=== PATIENT | female | born 1950 | race Caucasian/White ===

== ENCOUNTER 2016-07-06 22:57 | Inpatient (IN) ==
--- NOTE | 2016-07-06 23:17 | Emergency Department Note ---
Disposition Clinical Impression: Gastroenteritis, Respiratory difficulty Abdominal pain Qualifiers: Abdominal location: generalized Qualified Code(s): R10.84 - Generalized abdominal pain Pneumonia Qualifiers: Pneumonia type: due to unspecified organism Laterality: right Lung location: lower lobe of lung Qualified Code(s): J18.9 - Pneumonia, unspecified organism Disposition: Admitted As Inpatient Condition: Fair Time of Disposition: 06:06 Abdominal Pain HPI - General Chief Complaint: ED Abdominal Pain Stated Complaint: "n/v/d for past 24, rt flank pain" Time Seen by Provider: 07/06/16 23:14 Source: patient, EMS Mode of arrival: EMS Limitations: no limitations Nursing Notes Reviewed: Yes Vital Signs Reviewed: Yes - History of Present Illness HPI Narrative: She presents to the emergency department with complaints of 24 hours of GI disturbance. With nausea vomiting no diarrhea times the last 24 hours. States she has been unable to keep anything down at this point. While she is brought in by EMS they did give her IV fluids 1 liter and also 4 mg of Zofran and she states that she is feeling better. She has reports no fever. No diarrhea. Pt Subjective Complaint: abdominal pain Onset (ago): day(s) (1) Consistency: constant Location: diffuse Pain Severity: moderate Pain Scale: 6 Quality: cramping Radiation: none Migration to: no migration Improves with: nothing Worsens with: nothing Associated symptoms: Reports: nausea, vomiting - Related Data Home Medications Medication Instructions Recorded Confirmed Atorvastatin Calcium [Lipitor] 20 mg PO DAILY 07/07/16 07/07/16 Lisinopril [Zestril] 20 mg PO DAILY 07/07/16 07/07/16 Pantoprazole Sodium [Protonix] 20 mg PO DAILY 07/07/16 07/07/16 Allergies Allergy/AdvReac Type Severity Reaction Status Date / Time No Known Allergies Allergy Verified 07/06/16 23:04 All systems ED: reviewed and negative except as stated. Constitutional: Denies: fever, chills, weakness, weight change Eyes: Denies: eye pain, eye discharge, vision change ENT ED: Denies: ear pain, throat pain, dental pain, hearing loss, epistaxis, congestion, dysphagia Cardiovascular: Denies: chest pain, palpitations, dyspnea on exertion, edema, syncope Respiratory: Denies: cough, dyspnea, wheezes, hemoptysis, stridor Gastrointestinal: Reports: abdominal pain, nausea, vomiting. Denies: diarrhea, hematemesis, hematochezia Genitourinary: Denies: dysuria, frequency, hematuria, discharge Musculoskeletal: Denies: back pain, neck pain, arthralgia, myalgia Integumentary: Denies: rash, abrasion, lesions Neurological: Denies: headache, weakness, numbness, paresthesias, confusion, abnormal gait, vertigo Abdominal Pain PMH - Past Medical History Medical history: Reports: non-contributory Physical Exam - General Limitations: no limitations General appearance: alert, in no apparent distress - Head Head exam: atraumatic, normocephalic, normal inspection - Eye Eye exam: Present: normal appearance, PERRL, EOMI - ENT ENT exam: normal exam, normal oropharynx, mucous membranes moist - Neck Neck exam: Present: normal inspection, full ROM, trachea midline - Chest Chest inspection: Present: normal inspection, symmetric chest wall rise - Respiratory Respiratory exam: Present: normal lung sounds bilaterally - Cardiovascular Cardiovascular exam: Present: regular rate, normal rhythm, normal heart sounds - Abdominal Exam Abdominal exam: Present: tenderness, diminished bowel sounds. Absent: distention, guarding, rebound Abdominal tenderness: Present: diffuse - Extremities Exam Extremities exam: Present: normal inspection, full ROM. Absent: tenderness, pedal edema - Back Exam Back exam: Present: normal inspection, full ROM. Absent: tenderness - Neurological Exam Neurological exam: Present: alert, oriented X3, CN II-XII intact, reflexes normal - Psychiatric Psychiatric exam: Present: normal affect, normal mood - Skin Skin exam: Present: warm, dry, intact, normal color Course - Reevaluation(s) Reevaluation #1: Patient has been resting quietly throughout the evening, was improving, no abdominal pain, tolerating ice chips without difficulty. However, she suddenly sat up in bed, became shaky, anxious, short of breath. Vital signs, oxygen saturation down to 88% on room air, applied oxygen 3l/min nc. and up to 93%. She is denying chest pain at this time., but remains anxious, short of breath. Will obtain CTA Time: 05:16 Reevaluation #2: Dr. Felton advised of change in patient's condition. Patient remains dyspneic , feels as "if something is wrong, I don't feel right". She is more pale, no diaphoresis at this time, continues to deny chest pain. Remains on monitor, oxygen at 3l/min, n.c Sent to CT. Time: 05:30 Reevaluation #3: report to TAY Ramon he will assume care of patient. Time: 06:18 Vital Signs Temperature 99.5 F 07/06/16 23:00 Pulse Rate 76 07/06/16 23:00 Respiratory Rate 16 07/06/16 23:00 Blood Pressure 116/68 07/06/16 23:00 O2 Sat by Pulse Oximetry 92 L 07/06/16 23:00 Temperature 99.3 F 07/07/16 16:14 Pulse Rate 106 07/07/16 18:32 Respiratory Rate 34 07/07/16 18:32 Blood Pressure 100/67 07/07/16 18:32 O2 Sat by Pulse Oximetry 100 07/07/16 18:32 Oxygen Delivery Oxygen Delivery Non Rebreather Mask Abdominal Pain - Differential Diagnosis Differential Diagnosis: Likely: gastroenteritis - Lab Data Result diagrams: 07/06/16 23:31 07/06/16 23:31 Lab Results 07/06/16 07/06/16 07/07/16 Range/Units 23:31 23:31 04:57 WBC 14.6 H (4.3-11.1) K/mcL RBC 3.70 L (3.82-4.97) M/mcL Hgb 10.8 L (11.5-15.4) g/dL Hct 32.8 L (35.3-44.9) % MCV 88.6 (83.0-100.0) fL MCH 29.2 (28.0-33.3) pg MCHC 32.9 (31.6-35.5) g/dL RDW 14.5 (11.5-14.5) % Plt Count 89 L (140-400) K/mcL MPV 10.9 (9.4-12.4) fL Seg Neutrophils % 72.0 % Band Neutrophils % 18.0 H (0-4) % Lymphocytes % 4.0 % Monocytes % 2.0 % Metamyelocytes % 4.0 H (0) % Neutrophils # 13.1 H (1.6-8.9) K/mcL Lymphocytes # 0.6 (0.6-4.6) K/mcL Monocytes # 0.3 (0.0-1.3) K/mcL Platelet Estimate Decreased L (Normal) Immature Plt Fraction 5.0 (1.1-6.1) % PT (9.4-12.1) Seconds INR Fibrinogen (169-393) mg/dL Sodium 141 (136-145) mEq/L Potassium 3.4 L (3.5-4.5) mEq/L Chloride 113 H (98-109) mEq/L Carbon Dioxide 18 L (19-29) mEq/L BUN 38 H (7-20) mg/dL Creatinine 1.19 H (0.57-1.11) mg/dL Est GFR ( Amer) 55 L (> 60) Est GFR (Non-Af Amer) 45 L (> 60) BUN/Creatinine Ratio 32 H (6-26) Glucose 116 H (70-99) mg/dL Calculated Osmolality 302 H (280-300) Lactic Acid (0.5-2.2) mmol/L Calcium 7.4 L (8.6-10.8) mg/dL Magnesium (1.6-2.6) mg/dL Total Bilirubin 1.7 H (0.2-1.2) mg/dL Direct Bilirubin 0.5 (0.0-0.5) mg/dL Indirect Bilirubin 1.2 (0.0-1.2) mg/dL AST 59 H (5-34) Units/L ALT 82 H (0-55) Units/L Alkaline Phosphatase 168 H (38-126) Units/L Troponin I (0-0.03) ng/mL Serum Total Protein 5.8 L (6.0-8.3) g/dL Albumin 2.6 L (3.5-5.0) g/dL Globulin 3.2 (2.4-3.5) g/dL Albumin/Globulin Ratio 0.8 L (1.1-2.2) Amylase 25 (25-125) Units/L Lipase 13 (8-78) Units/L Urine Color Dark Yellow (Yellow) Urine Clarity Cloudy A (Clear) Urine pH 5.5 (5.0-8.0) pH Units Ur Specific [place] 1.020 (1.010-1.025) Urine Protein 30 H (Neg-Trace) mg/dL Urine Glucose (UA) Normal (Normal) mg/dL Urine Ketones Negative (Negative) mg/dL Urine Blood Large H (Negative) Urine Nitrite Negative (Negative) Urine Bilirubin Negative (Negative) Urine Urobilinogen Normal (Normal) mg/dL Ur Leukocyte Esterase Moderate H (Negative) Urine Microscopic RBC 5-15 H (0-3) per hpf Urine Microscopic WBC 30-50 H (0-3) per hpf Ur Squamous Epith Cells Many H (None-Few) per lpf Urine Bacteria Many H (None-Few) per hpf Hyaline Casts Test Not Performed Ur Culture Indicated? YES A (NO) A. baumannii (TEM-PCR) (Not Detect) Ann-Marie albicans (PCR) (Not Detect) C. glabrata (PCR) (Not Detect) C. krusei (PCR) (Not Detect) C. parapsilosis (PCR) (Not Detect) C. tropicalis (PCR) (Not Detect) Enterobacteriac sp PCR (Not Detect) E. cloacae complex PCR (Not Detect) Enterococcus sp PCR (Not Detect) E. coli (PCR) (Not Detect) H. influenzae DNA (Not Detect) Klebsiella oxytoca PCR (Not Detect) Klebsiella pneumoniae (Not Detect) Listeria (PCR) (Not Detect) N. meningitidis (PCR) (Not Detect) Proteus species (PCR) (Not Detect) Serratia marcescens PCR (Not Detect) Staphylococcus sp PCR (Not Detect) Staph aureus (PCR) (Not Detect) MRS (TEM-PCR) (Not Detect) Streptococcus sp PCR (Not Detect) Group A Strep DNA (Not Detect) Group B Strep (PCR) (Not Detect) Strep pneumoniae (PCR) (Not Detect) P. aeruginosa (TEM-PCR) (Not Detect) VRE (PCR) (Not Detect) KPC (blaKPC) Detect PCR (Not Detect) 07/07/16 07/07/16 07/07/16 Range/Units 06:51 06:51 06:51 WBC (4.3-11.1) K/mcL RBC (3.82-4.97) M/mcL Hgb (11.5-15.4) g/dL Hct (35.3-44.9) % MCV (83.0-100.0) fL MCH (28.0-33.3) pg MCHC (31.6-35.5) g/dL RDW (11.5-14.5) % Plt Count (140-400) K/mcL MPV (9.4-12.4) fL Seg Neutrophils % % Band Neutrophils % (0-4) % Lymphocytes % % Monocytes % % Metamyelocytes % (0) % Neutrophils # (1.6-8.9) K/mcL Lymphocytes # (0.6-4.6) K/mcL Monocytes # (0.0-1.3) K/mcL Platelet Estimate (Normal) Immature Plt Fraction (1.1-6.1) % PT (9.4-12.1) Seconds INR Fibrinogen (169-393) mg/dL Sodium (136-145) mEq/L Potassium (3.5-4.5) mEq/L Chloride (98-109) mEq/L Carbon Dioxide (19-29) mEq/L BUN (7-20) mg/dL Creatinine (0.57-1.11) mg/dL Est GFR ( Amer) (> 60) Est GFR (Non-Af Amer) (> 60) BUN/Creatinine Ratio (6-26) Glucose (70-99) mg/dL Calculated Osmolality (280-300) Lactic Acid 6.1 H* (0.5-2.2) mmol/L Calcium (8.6-10.8) mg/dL Magnesium (1.6-2.6) mg/dL Total Bilirubin (0.2-1.2) mg/dL Direct Bilirubin (0.0-0.5) mg/dL Indirect Bilirubin (0.0-1.2) mg/dL AST (5-34) Units/L ALT (0-55) Units/L Alkaline Phosphatase (38-126) Units/L Troponin I 0.03 (0-0.03) ng/mL Serum Total Protein (6.0-8.3) g/dL Albumin (3.5-5.0) g/dL Globulin (2.4-3.5) g/dL Albumin/Globulin Ratio (1.1-2.2) Amylase (25-125) Units/L Lipase (8-78) Units/L Urine Color (Yellow) Urine Clarity (Clear) Urine pH (5.0-8.0) pH Units Ur Specific [place] (1.010-1.025) Urine Protein (Neg-Trace) mg/dL Urine Glucose (UA) (Normal) mg/dL Urine Ketones (Negative) mg/dL Urine Blood (Negative) Urine Nitrite (Negative) Urine Bilirubin (Negative) Urine Urobilinogen (Normal) mg/dL Ur Leukocyte Esterase (Negative) Urine Microscopic RBC (0-3) per hpf Urine Microscopic WBC (0-3) per hpf Ur Squamous Epith Cells (None-Few) per lpf Urine Bacteria (None-Few) per hpf Hyaline Casts Ur Culture Indicated? (NO) A. baumannii (TEM-PCR) Not Detected (Not Detect) Ann-Marie albicans (PCR) Not Detected (Not Detect) C. glabrata (PCR) Not Detected (Not Detect) C. krusei (PCR) Not Detected (Not Detect) C. parapsilosis (PCR) Not Detected (Not Detect) C. tropicalis (PCR) Not Detected (Not Detect) Enterobacteriac sp PCR DETECTED A (Not Detect) E. cloacae complex PCR Not Detected (Not Detect) Enterococcus sp PCR Not Detected (Not Detect) E. coli (PCR) DETECTED A (Not Detect) H. influenzae DNA Not Detected (Not Detect) Klebsiella oxytoca PCR Not Detected (Not Detect) Klebsiella pneumoniae Not Detected (Not Detect) Listeria (PCR) Not Detected (Not Detect) N. meningitidis (PCR) Not Detected (Not Detect) Proteus species (PCR) Not Detected (Not Detect) Serratia marcescens PCR Not Detected (Not Detect) Staphylococcus sp PCR Not Detected (Not Detect) Staph aureus (PCR) Not Detected (Not Detect) MRS (TEM-PCR) N/A (Not Detect) Streptococcus sp PCR Not Detected (Not Detect) Group A Strep DNA Not Detected (Not Detect) Group B Strep (PCR) Not Detected (Not Detect) Strep pneumoniae (PCR) Not Detected (Not Detect) P. aeruginosa (TEM-PCR) Not Detected (Not Detect) VRE (PCR) N/A (Not Detect) KPC (blaKPC) Detect PCR Not Detected (Not Detect) 07/07/16 07/07/16 Range/Units 09:31 09:31 WBC (4.3-11.1) K/mcL RBC (3.82-4.97) M/mcL Hgb (11.5-15.4) g/dL Hct (35.3-44.9) % MCV (83.0-100.0) fL MCH (28.0-33.3) pg MCHC (31.6-35.5) g/dL RDW (11.5-14.5) % Plt Count (140-400) K/mcL MPV (9.4-12.4) fL Seg Neutrophils % % Band Neutrophils % (0-4) % Lymphocytes % % Monocytes % % Metamyelocytes % (0) % Neutrophils # (1.6-8.9) K/mcL Lymphocytes # (0.6-4.6) K/mcL Monocytes # (0.0-1.3) K/mcL Platelet Estimate (Normal) Immature Plt Fraction (1.1-6.1) % PT 17.4 H (9.4-12.1) Seconds INR 1.6 Fibrinogen 540 H (169-393) mg/dL Sodium (136-145) mEq/L Potassium (3.5-4.5) mEq/L Chloride (98-109) mEq/L Carbon Dioxide (19-29) mEq/L BUN (7-20) mg/dL Creatinine (0.57-1.11) mg/dL Est GFR ( Amer) (> 60) Est GFR (Non-Af Amer) (> 60) BUN/Creatinine Ratio (6-26) Glucose (70-99) mg/dL Calculated Osmolality (280-300) Lactic Acid (0.5-2.2) mmol/L Calcium (8.6-10.8) mg/dL Magnesium 1.4 L (1.6-2.6) mg/dL Total Bilirubin (0.2-1.2) mg/dL Direct Bilirubin (0.0-0.5) mg/dL Indirect Bilirubin (0.0-1.2) mg/dL AST (5-34) Units/L ALT (0-55) Units/L Alkaline Phosphatase (38-126) Units/L Troponin I (0-0.03) ng/mL Serum Total Protein (6.0-8.3) g/dL Albumin (3.5-5.0) g/dL Globulin (2.4-3.5) g/dL Albumin/Globulin Ratio (1.1-2.2) Amylase (25-125) Units/L Lipase (8-78) Units/L Urine Color (Yellow) Urine Clarity (Clear) Urine pH (5.0-8.0) pH Units Ur Specific [place] (1.010-1.025) Urine Protein (Neg-Trace) mg/dL Urine Glucose (UA) (Normal) mg/dL Urine Ketones (Negative) mg/dL Urine Blood (Negative) Urine Nitrite (Negative) Urine Bilirubin (Negative) Urine Urobilinogen (Normal) mg/dL Ur Leukocyte Esterase (Negative) Urine Microscopic RBC (0-3) per hpf Urine Microscopic WBC (0-3) per hpf Ur Squamous Epith Cells (None-Few) per lpf Urine Bacteria (None-Few) per hpf Hyaline Casts Ur Culture Indicated? (NO) A. baumannii (TEM-PCR) (Not Detect) Ann-Marie albicans (PCR) (Not Detect) C. glabrata (PCR) (Not Detect) C. krusei (PCR) (Not Detect) C. parapsilosis (PCR) (Not Detect) C. tropicalis (PCR) (Not Detect) Enterobacteriac sp PCR (Not Detect) E. cloacae complex PCR (Not Detect) Enterococcus sp PCR (Not Detect) E. coli (PCR) (Not Detect) H. influenzae DNA (Not Detect) Klebsiella oxytoca PCR (Not Detect) Klebsiella pneumoniae (Not Detect) Listeria (PCR) (Not Detect) N. meningitidis (PCR) (Not Detect) Proteus species (PCR) (Not Detect) Serratia marcescens PCR (Not Detect) Staphylococcus sp PCR (Not Detect) Staph aureus (PCR) (Not Detect) MRS (TEM-PCR) (Not Detect) Streptococcus sp PCR (Not Detect) Group A Strep DNA (Not Detect) Group B Strep (PCR) (Not Detect) Strep pneumoniae (PCR) (Not Detect) P. aeruginosa (TEM-PCR) (Not Detect) VRE (PCR) (Not Detect) KPC (blaKPC) Detect PCR (Not Detect)
[2016-07-06] MEDS ORDERED: Pantoprazole 40 MG VIAL IVP ONE (23:20)
[2016-07-06] MEDS ORDERED: 0.9 % Sodium Chloride 1,000 ML IVC ONE (23:20)
[2016-07-06 23:46] LABS: Hematocrit 32.8 % (35.3-44.9); Hemoglobin 10.8 g/dL (11.5-15.4); Mean Corpuscular HGB Conc 32.9 g/dL (31.6-35.5); Mean Corpuscular Hemoglobin 29.2 pg (28.0-33.3); Mean Corpuscular Volume 88.6 fL (83.0-100.0); Mean Platelet Volume 10.9 fL (9.4-12.4); Red Cell Distribution Width 14.5 % (11.5-14.5)
[2016-07-06 23:50] LABS: Albumin 2.6 g/dL (3.5-5.0); Albumin/Globulin Ratio 0.8 (1.1-2.2); Bilirubin,Direct 0.5 mg/dL (0.0-0.5); Bilirubin,Indirect 1.2 mg/dL (0.0-1.2); Bilirubin,Total 1.7 mg/dL (0.2-1.2); Calcium 7.4 mg/dL (8.6-10.8); Globulin 3.2 g/dL (2.4-3.5); Total Protein 5.8 g/dL (6.0-8.3)
[2016-07-06 23:51] LABS: Potassium 3.4 mEq/L (3.5-4.5)
[2016-07-07 00:02] LABS: Platelet Count 89 K/mcL (140-400)
[2016-07-07 00:06] LABS: Lymphocytes # 0.6 K/mcL (0.6-4.6); Monocytes # 0.3 K/mcL (0.0-1.3); Neutrophils # 13.1 K/mcL (1.6-8.9); Platelet Estimate Decreased (Normal)
[2016-07-07 05:13] LABS: Bilirubin,Urine Negative (Negative); Blood,Urine Large (Negative); Clarity,Urine Cloudy (Clear); Color,Urine Dark Yellow (Yellow); Glucose,Urine (UA) Normal (Normal); Ketones,Urine Negative (Negative); Leukocyte Esterase,Urine Moderate (Negative); Nitrite,Urine Negative (Negative); PH,Urine 5.5 pH Units (5.0-8.0); Protein,Urine 30 mg/dL (Neg-Trace); Urobilinogen,Urine Normal (Normal)
[2016-07-07 05:15] LABS: Bacteria,Urine Many per hpf (None-Few); Squamous Epithelial Cell,Urine Many per lpf (None-Few); WBC,Urine 30-50 per hpf (0-3)
--- NOTE | 2016-07-07 06:32 | Emergency Department Note ---
START Narrative - START START: I examined this patient and my medical decision-making was reviewed with the TILT TRAY DRIVER/PA/Advanced Practice Nurse/Resident Physician. I agree with the documented findings, disposition and treatment plan as described except to the extent set forth below. ED attending note: Patient seen with nurse practitioner Irina Tavarez. Please see a copy of his note for details of the H&P, evaluation, management and disposition of this patient. We independently had [id number] contact with the patient Briefly: -year-old female comes in for nausea vomiting diarrhea ED workup shows that she was getting some shortness of breath and tachycardia CTA of the chest was performed to exclude [place] has history of blood clot in the past, shows a lower lobe pneumonia. Patient 3 L of fluid. We provided 45 minutes. Service for this patient. Patient accepted for admission by the hospitalist in stable condition.
[2016-07-07] MEDS ORDERED: 0.9 % Sodium Chloride 1,000 ML IVC ONE (06:34)
--- NOTE | 2016-07-07 06:58 | Emergency Department Note ---
Disposition Clinical Impression: Gastroenteritis, Respiratory difficulty Abdominal pain Qualifiers: Abdominal location: generalized Qualified Code(s): R10.84 - Generalized abdominal pain Pneumonia Qualifiers: Pneumonia type: due to unspecified organism Laterality: right Lung location: lower lobe of lung Qualified Code(s): J18.9 - Pneumonia, unspecified organism Disposition: Admitted As Inpatient Condition: Fair Instructions: Gastroenteritis (ED), Community-acquired Pneumonia (ED) Additional Instructions: 1. Clear liquids, progress diet slowly to BLAND foods over the next 2-3 days 2. Use the Zofran for nausea 3. Push fluids. 4. Follow up with PCP in 1-2 days. Prescriptions: Ondansetron HCl [Zofran] 4 mg PO Q6H #20 tablet Referrals: NO,PCP [Non-Partnered Physician] - Forms: ED Satisfaction Letter, Work/School Release Time of Disposition: 06:30 Abdominal Pain HPI - General Chief Complaint: ED Abdominal Pain Stated Complaint: "n/v/d for past 24, rt flank pain" Time Seen by Provider: 07/06/16 23:14 Source: patient, EMS Mode of arrival: EMS - History of Present Illness Pt Subjective Complaint: abdominal pain Location: diffuse Pain Severity: moderate Pain Scale: 0 Quality: cramping Migration to: no migration Improves with: nothing Worsens with: nothing Associated symptoms: Reports: nausea, vomiting - Related Data Previous Rx's Medication Instructions Recorded Ondansetron HCl [Zofran] 4 mg PO Q6H #20 tablet 07/07/16 Allergies Allergy/AdvReac Type Severity Reaction Status Date / Time No Known Allergies Allergy Verified 07/06/16 23:04 Constitutional: Denies: fever, chills, weakness, weight change Eyes: Denies: eye pain, eye discharge, vision change ENT ED: Denies: ear pain, throat pain, dental pain, hearing loss, epistaxis, congestion, dysphagia Cardiovascular: Denies: chest pain, palpitations, dyspnea on exertion, edema, syncope Respiratory: Denies: cough, dyspnea, wheezes, hemoptysis, stridor Gastrointestinal: Reports: abdominal pain, nausea, vomiting. Denies: diarrhea, hematemesis, hematochezia Genitourinary: Denies: dysuria, frequency, hematuria, discharge Musculoskeletal: Denies: back pain, neck pain, arthralgia, myalgia Integumentary: Denies: rash, abrasion, lesions Neurological: Denies: headache, weakness, numbness, paresthesias, confusion, abnormal gait, vertigo Abdominal Pain PMH - Past Medical History Medical history: Reports: non-contributory Female Surgical History: Reports: hysterectomy, orthopedic, other Psychiatric history: Reports: no psych history - Social History Smoking status: Never smoker Alcohol use: Reports: none Drug use: Reports: none Physical Exam - General Limitations: no limitations General appearance: alert, in no apparent distress Course Course Narrative: 0615: I received report from TAY Arevalo due to shift change. I have assumed care of this patient at this time. 66-year-old female presented to the emergency Department for chief complaint of nausea vomiting and diarrhea for the past 24 hours. Patient was dispositioned home, and discharge orders were written by the previous provider, TAY Arevalo. As the nurse entered the room to discharge the patient, the patient became anxious, tachycardic, hypertensive, hypoxic, diaphoretic. Dr. Felton was made aware of these changes. A CTA of the chest was ordered which showed no pulmonary embolus, however did show the possibility of right lower lobe atelectasis versus pneumonia. Patient remained tachycardic, diaphoretic, and with an oxygen saturation of 90-95% on [address] Felton recommended admission to the hospitalist service for further treatment of pneumonia. 0630: I spoke with Dr. Ni of the hospitalist service. Dr. Ni accepts the patient for admission to the hospitalist. A repeat EKG was performed which showed no changes from the previous EKG. We will obtain a lactic acid due to the patient's elevated white blood cell count and presence of pneumonia on CTA. We will obtain blood cultures prior to the initiation of IV antibiotics. At this time we are awaiting a bed assignment for admission to the hospital. The patient was placed on a nonrebreather mask. Vital Signs Temperature 99.5 F 07/06/16 23:00 Pulse Rate 76 07/06/16 23:00 Respiratory Rate 16 07/06/16 23:00 Blood Pressure 116/68 07/06/16 23:00 O2 Sat by Pulse Oximetry 92 L 07/06/16 23:00 Temperature 0 F L 07/07/16 06:52 Pulse Rate 130 07/07/16 06:52 Respiratory Rate 24 07/07/16 06:52 Blood Pressure 175/92 07/07/16 06:52 O2 Sat by Pulse Oximetry 100 07/07/16 06:54 Oxygen Delivery Oxygen Delivery Non Rebreather Mask Abdominal Pain - Lab Data Result diagrams: 07/06/16 23:31 07/06/16 23:31 Lab Results 07/06/16 07/06/16 07/07/16 Range/Units 23:31 23:31 04:57 WBC 14.6 H (4.3-11.1) K/mcL RBC 3.70 L (3.82-4.97) M/mcL Hgb 10.8 L (11.5-15.4) g/dL Hct 32.8 L (35.3-44.9) % MCV 88.6 (83.0-100.0) fL MCH 29.2 (28.0-33.3) pg MCHC 32.9 (31.6-35.5) g/dL RDW 14.5 (11.5-14.5) % Plt Count 89 L (140-400) K/mcL MPV 10.9 (9.4-12.4) fL Seg Neutrophils % 72.0 % Band Neutrophils % 18.0 H (0-4) % Lymphocytes % 4.0 % Monocytes % 2.0 % Metamyelocytes % 4.0 H (0) % Neutrophils # 13.1 H (1.6-8.9) K/mcL Lymphocytes # 0.6 (0.6-4.6) K/mcL Monocytes # 0.3 (0.0-1.3) K/mcL Platelet Estimate Decreased L (Normal) Immature Plt Fraction 5.0 (1.1-6.1) % Sodium 141 (136-145) mEq/L Potassium 3.4 L (3.5-4.5) mEq/L Chloride 113 H (98-109) mEq/L Carbon Dioxide 18 L (19-29) mEq/L BUN 38 H (7-20) mg/dL Creatinine 1.19 H (0.57-1.11) mg/dL Est GFR ( Amer) 55 L (> 60) Est GFR (Non-Af Amer) 45 L (> 60) BUN/Creatinine Ratio 32 H (6-26) Glucose 116 H (70-99) mg/dL Calculated Osmolality 302 H (280-300) Calcium 7.4 L (8.6-10.8) mg/dL Total Bilirubin 1.7 H (0.2-1.2) mg/dL Direct Bilirubin 0.5 (0.0-0.5) mg/dL Indirect Bilirubin 1.2 (0.0-1.2) mg/dL AST 59 H (5-34) Units/L ALT 82 H (0-55) Units/L Alkaline Phosphatase 168 H (38-126) Units/L Serum Total Protein 5.8 L (6.0-8.3) g/dL Albumin 2.6 L (3.5-5.0) g/dL Globulin 3.2 (2.4-3.5) g/dL Albumin/Globulin Ratio 0.8 L (1.1-2.2) Amylase 25 (25-125) Units/L Lipase 13 (8-78) Units/L Urine Color Dark Yellow (Yellow) Urine Clarity Cloudy A (Clear) Urine pH 5.5 (5.0-8.0) pH Units Ur Specific [place] 1.020 (1.010-1.025) Urine Protein 30 H (Neg-Trace) mg/dL Urine Glucose (UA) Normal (Normal) mg/dL Urine Ketones Negative (Negative) mg/dL Urine Blood Large H (Negative) Urine Nitrite Negative (Negative) Urine Bilirubin Negative (Negative) Urine Urobilinogen Normal (Normal) mg/dL Ur Leukocyte Esterase Moderate H (Negative) Urine Microscopic RBC 5-15 H (0-3) per hpf Urine Microscopic WBC 30-50 H (0-3) per hpf Ur Squamous Epith Cells Many H (None-Few) per lpf Urine Bacteria Many H (None-Few) per hpf Hyaline Casts Test Not Performed Ur Culture Indicated? YES A (NO)
[2016-07-07] MEDS ORDERED: Piperacillin/Tazobactam 3.375 GM in D5% in Water (Mini-Bag+) 100 ML IVPB ONE (06:59)
[2016-07-07] MEDS ORDERED: Levofloxacin 500 MG/100 ML 500 MG/100 ML BAG IVPB ONE (06:59)
--- NOTE | 2016-07-07 08:44 | Internal Med History&Physical ---
<Jaci Alcantar - Last Filed: 07/07/16 09:52> Date of Encounter: 07/07/16 Time of Encounter: 08:10 Assessment and Plan (1) Severe sepsis Current visit: Yes Status: Acute - 4/4 SIRS criteria (Fever, tachycardia, tachypnea and leukocytosis with bandemia) with lactic acidosis and MORRIS - Possible source infection include influenza, gastroenteritis, UTI and/or pneumonia. - Blood culture and urine culture pending. - Will check influenza, C. difficile, respiratory infection panel, urine antigens for Strep. pneumonia and Legionella. - Adequate hydration with bolus and maintenance IV NS. - Continue Zosyn and add Flagyl. - Close monitoring including telemetry. (2) Gastroenteritis Current visit: Yes Status: Acute - Likely viral but other ddx include bacterial or other GI disorders. - Will check C. difficile. - Will obtain CT A/P for further evaluation. - Zofran prn nausea. - Continue Zosyn and add Flagyl. (3) UTI (urinary tract infection) Current visit: Yes Status: Acute - UA suggests possible UTI despite patient reports no urinary symptoms. - Urine culture pending. - Continue Zosyn. Qualifiers: Urinary tract infection type: site unspecified Hematuria presence: with hematuria Qualified Code(s): N39.0 - Urinary tract infection, site not specified; R31.9 - Hematuria, unspecified (4) MORRIS (acute kidney injury) Current visit: Yes Status: Acute - SCr 1.19 on initial presentation, increased from baseline ~ 0.8 - Likely secondary to sepsis and dehydration from nausea/vomiting/diarrhea. - IV hydration with 2 more liters of bolus. - Continue to monitor renal function and electrolytes. (5) Lactic acidosis Current visit: Yes Status: Acute - Lactic acid 6.1 on initial presentation. - Likely secondary to sepsis and associated end-organ injury. - Will recheck in 6 hours. (6) Pneumonia Current visit: Yes Status: Suspected - CTA chest found no evidence of PE but also suggests possible right lower lobe pneumonia vs. atelectasis. - Patient may have atypical or viral (e.g. influenza) pneumonia given only shortness of breath but no cough. - Will check respiratory infection panel, urine antigens for Strep. pneumonia and Legionella. - Continue Zosyn. - Continue supplemental oxygen. Qualifiers: Pneumonia type: due to unspecified organism Laterality: right Lung location: lower lobe of lung Qualified Code(s): J18.9 - Pneumonia, unspecified organism (7) Thrombocytopenia Current visit: Yes Status: Acute - Platelet count 116 on initial presentation. - Will check PT/INR and fibrinogen to rule out DIC. (8) Hypokalemia Current visit: Yes Status: Acute - K at 3.4 on initial presentation. - Will check Mg. - Continue to monitor. (9) Breast cyst Current visit: Yes Status: Acute - Cyst or solid nodule at inferior left breast as seen on CTA chest. - Patient is recommended to follow up with her PCP for further work-up/ monitoring. Qualifiers: Laterality: left Qualified Code(s): N60.02 - Solitary cyst of left breast (10) Renal cyst Current visit: Yes Status: Acute - Right renal cyst as seen on CTA chest and reported per patient. (11) DVT prophylaxis Current visit: Yes Status: Acute - SQ heparin. Internal Medicine - H&P: HPI Chief complaint: Nausea/vomiting/diarrhea Admitted From: Home Plans for Post Hospital Care: Home History of present illness: Ms. Zamorano is a 66 year old female with PMH of HTN, HLD, GERD and renal cyst/ tumor. Patient presented to ED with nausea, vomiting, diarrhea starting 24 hours ago. Patient's vomitus is mostly regurgitation of food/drink she had and no blood or bile. The diarrhea is watery and charcoal dark per patient. Patient also has anorexia, subjective fever, chills and shortness of breath. Patient denies cough, chest pain, dysphagia, recent choke, abdominal pain, difficulty urinating, dysuria, hematuria. Patient denies recent sick contact but wonder she may have flu. Patient denies any known heart or lung problem and doesn't use oxygen at home. Patient is DNR-CCA. No known significant medical family history among biological family members. Patient denies recent hospitalization or antibiotic use. Past Med Surg Social Fam HX - Past Medical History Medical history: GERD, hyperlipidemia, hypertension Psychiatric history: no psych history - Past Surgical History Surgical History: hysterectomy, orthopedic, other (Left shoulder) - Social History Smoking Status: Never smoker Smokeless Tobacco Status: No Alcohol use: none Drug use: none Internal Medicine - H&P: Meds Atorvastatin Calcium [Lipitor] 20 mg PO DAILY 07/07/16 [History] Lisinopril [Zestril] 20 mg PO DAILY 07/07/16 [History] Pantoprazole Sodium [Protonix] 20 mg PO DAILY 07/07/16 [History] Allergies No Known Allergies Allergy (Verified 07/06/16 23:04) All Systems PM: A 10-system review of systems was performed and is negative for pertinent findings except as documented above in the HPI. - Constitutional Constitutional: anorexia, chills, fever(s), no weight gain, no weight loss - EENT Eyes: no loss of vision Ears: no decreased hearing Nose, mouth and throat: no dysphagia, no nasal congestion, no nasal discharge - Cardiovascular Cardiovascular ROS IM: no chest pain, no edema, no syncope - Respiratory Respiratory: dyspnea, no cough, no hemoptysis, no excessive phlegm production - Gastrointestinal Gastrointestinal: diarrhea, nausea, vomiting, no abdominal pain, no hematochezia - Genitourinary Genitourinary: no difficulty urinating, no dysuria, no hematuria - Musculoskeletal Musculoskeletal ROS IM: back pain (Chronic right back pain) - Integumentary Integumentary IM: no pruritus, no rash - Hematologic/Lymphatic Hematologic/Lymphatic: no easy bleeding, no easy bruising - Constitutional Vitals: Temp Pulse Resp BP Pulse Ox 0 F L 123 24 141/83 100 07/07/16 06:56 07/07/16 07:19 07/07/16 07:19 07/07/16 07:19 07/07/16 07:19 General appearance: Present: cooperative, mild distress, A&O X 3, answers questions appropriately - Head Head exam: Present: atraumatic, normocephalic - Eye Eye exam: Present: PERRL, conjuntiva pink, sclera anicteric - Neck Neck exam general surgery: Present: supple, trachea midline. Absent: lymphadenopathy - Respiratory Respiratory exam: Present: CTAB. Absent: accessory muscle use, rales, rhonchi, wheezes - Cardiovascular Cardiovascular exam: Present: +S1, +S2, tachycardia. Absent: diastolic murmur, gallop, rubs, systolic murmur - GI/Abdominal GI/Abdominal exam: Present: normal bowel sounds, soft, no peritoneal signs. Absent: distended, tenderness - Extremities Exam Extremities exam: Present: warm, radial pulses palpable and symetrical. Absent : calf tenderness, cyanotic, pedal edema - Neurological Exam Neurological exam: Present: CN II-XII intact, oriented X3, no focal deficits. Absent: pronater drift, facial droop, speech deficit - Skin Skin exam: Present: dry, intact, warm Internal Med - H&P Results - Labs CBC & Chem 7: 07/06/16 23:31 07/06/16 23:31 Labs: Short CBC 07/06/16 Range/Units 23:31 WBC 14.6 H (4.3-11.1) K/mcL Hgb 10.8 L (11.5-15.4) g/dL Hct 32.8 L (35.3-44.9) % Plt Count 89 L (140-400) K/mcL Neutrophils # 13.1 H (1.6-8.9) K/mcL BMP 07/06/16 23:31 Sodium 141 Potassium 3.4 L Chloride 113 H Carbon Dioxide 18 L BUN 38 H Creatinine 1.19 H Glucose 116 H Calcium 7.4 L Cardiac Enzymes 07/07/16 Range/Units 06:51 Troponin I 0.03 (0-0.03) ng/mL Liver Function 07/06/16 Range/Units 23:31 Total Bilirubin 1.7 H (0.2-1.2) mg/dL Direct Bilirubin 0.5 (0.0-0.5) mg/dL AST 59 H (5-34) Units/L ALT 82 H (0-55) Units/L Alkaline Phosphatase 168 H (38-126) Units/L Albumin 2.6 L (3.5-5.0) g/dL Urine 07/07/16 Range/Units 04:57 Urine Color Dark Yellow (Yellow) Urine Clarity Cloudy A (Clear) Urine pH 5.5 (5.0-8.0) pH Units Ur Specific [place] 1.020 (1.010-1.025) Urine Protein 30 H (Neg-Trace) mg/dL Urine Glucose (UA) Normal (Normal) mg/dL - Impressions ITS Impressions Chest CTA 07/07/16 05:16 IMPRESSION: 1. No central pulmonary embolus. Beyond the central level the study is considered nondiagnostic. 2. Right lower lobe atelectasis or pneumonia. 3. There is a large cystic structure in the right upper quadrant, partially imaged. Most likely this is a renal cyst. CT of the abdomen and pelvis could be obtained for further evaluation if clinically warranted. 4. Cyst or solid nodule in the inferior left breast. Correlation with mammography is recommended. D/ / Jorge Luis López MD / Jorge Luis López MD Interpreting Provider: Jorge Luis López MD <Miguel Ribeiro - Last Filed: 07/07/16 10:43> Date of Encounter: 07/07/16 Internal Medicine - H&P: HPI History of present illness: Ms. Zamorano is a 66 year old female All Systems PM: A 10-system review of systems was performed and is negative for pertinent findings except as documented above in the HPI. - Constitutional Vitals: Temp Pulse Resp BP Pulse Ox 0 F L 119 24 139/70 95 07/07/16 06:56 07/07/16 09:20 07/07/16 09:20 07/07/16 09:20 07/07/16 09:20 Internal Med - H&P Results - Labs CBC & Chem 7: 07/06/16 23:31 07/06/16 23:31 - Attending Attestation I have seen and examined this patient independently. I have discussed the case with the anesthesiology medical doctor, Dr. Radha Mcadams. I agree with the data gathering in the HPI, physical examination findings, assessment and plan as documented by the resident. Ms. Zamorano is a very pleasant 66-year-old lady with history of hypertension, hyperlipidemia, GERD. She presented to our emergency department complaining of 2 days of persistent nausea, vomiting and diarrhea. Upon my encounter with the patient in the emergency department she was febrile with a temperature of 103. Initial blood work reveals leukocytosis with bandemia. Mild acute kidney injury as well. Initially, there was a concern for pulmonary embolism, therefore a CT angio of the chest was obtained which was negative for PE. The urinalysis is abnormal, possible UTI. Lactic acid is elevated, however there is no anion gap. At this point, we will continue with aggressive IV fluid therapy, IV antibiotics. We will obtain a CT of the abdomen to assess further. Patient will continue with close monitoring. We will obtain d-dimer, fibrinogen , magnesium levels. Will follow cultures. The plan of care was discussed in detail with the patient and her , they expressed understanding.
[2016-07-07] MEDS ORDERED: Acetaminophen 325 MG TABLET PO PRN (09:19)
[2016-07-07] MEDS ORDERED: Ondansetron 4 MG/2 ML VIAL IVP PRN (09:19)
[2016-07-07] MEDS: MetroNIDAZOLE 500 MG/100 ML 500 MG/100 ML BAG IVPB SCH ×2 (09:35→18:18)
[2016-07-07 09:54] LABS: INR 1.6; Prothrombin Time 17.4 Seconds (9.4-12.1)
[2016-07-07] MEDS ORDERED: 0.9 % Sodium Chloride 1,000 ML IVC SCH (10:30)
[2016-07-07] MEDS: 0.9 % Sodium Chloride 1,000 ML IVC SCH ×2 (10:46→11:47)
[2016-07-07] MEDS ORDERED: Naloxone 0.4 MG/ML INJ IVP PRN (10:53)
[2016-07-07] MEDS: Magnesium Sulfate 2 GM in D5% in Water 100 ML IVPB SCH ×2 (13:12→14:16)
[2016-07-07] MEDS ORDERED: FLU VACC QS2016-17 36MOS UP/PF 0.5 ML SYRINGE IM ONE (13:21)
[2016-07-07] MEDS ORDERED: Furosemide 20 MG/2 ML VIAL IVP ONE ×4 (15:23→17:40)
--- NOTE | 2016-07-07 15:33 | Event Note ---
<KatharineJaci - Last Filed: 07/07/16 15:46> Date of Encounter: 07/07/16 Time of Encounter: 15:15 Physician was notified by nurse about persistent tachypnea and potential need of BiPAP or even intubation. Patient was seen and examined with Dr. Ribeiro. Patient still has significant shortness of breath with O2 sat 97% on non- rebreather. Bibasilar crackles on auscultation of lungs. Will obtain ABG. CXR confirms pulmonary edema. Will give 40 mg IV Lasix x1 and obtain BNP & echocardiogram to evaluate possible underlying cardiac disorder. Will hold IV fluid and put patient on BiPAP for now. Continue close monitoring. Consider breathing treatment and steroid if no improvement after Lasix. <Miguel Ribeiro - Last Filed: 07/07/16 15:53> Date of Encounter: 07/07/16 Agree with above.
[2016-07-07] MEDS: Piperacillin/Tazobactam 3.375 GM in D5% in Water (Mini-Bag+) 100 ML IVPB SCH (15:58)
[2016-07-07] MEDS ORDERED: MetroNIDAZOLE 500 MG/100 ML 500 MG/100 ML BAG IVPB SCH (16:00)
[2016-07-07] MEDS: Ipratropium/Albuterol Neb 3 ML IH PRN ×2 (16:44→22:05)
[2016-07-07 17:08] LABS: Adenovirus Not Detected (Not Detect); Bordetella Pertussis Not Detected (Not Detect); Chlamydophila pneumoniae Not Detected (Not Detect); Coronavirus 229E Not Detected (Not Detect); Coronavirus HKU1 Not Detected (Not Detect); Coronavirus NL63 Not Detected (Not Detect); Coronavirus OC43 Not Detected (Not Detect); Human Metapneumovirus Not Detected (Not Detect); Human Rhinovirus/Enterovirus Not Detected (Not Detect); Influenza A Subtype 2009 H1 Not Detected (Not Detect); Influenza A Untypeable Not Detected (Not Detect); Influenza B Not Detected (Not Detect); Mycoplasma pneumoniae Not Detected (Not Detect); Parainfluenza Virus 1 Not Detected (Not Detect); Parainfluenza Virus 2 Not Detected (Not Detect); Parainfluenza Virus 3 Not Detected (Not Detect); Parainfluenza Virus 4 Not Detected (Not Detect); Respiratory Syncytial Virus Not Detected (Not Detect)
[2016-07-07 17:14] LABS: ABG Base Excess -10.3 mEq/L (-2.0 to 3.0); ABG HCO3 17.2 mEQ/L (21-27); ABG Oxygen Saturation 95 % (95-98); ABG PCO2 43 mmHg (35-45); ABG PH 7.21 pH Units (7.32-7.45); ABG PO2 93 mmHg (85-104); ABG TCO2 18.5 mEq/L (20-26)
[2016-07-07] MEDS: *HR* Heparin 5,000 UNIT/ML VIAL SQ SCH (18:17)
[2016-07-07 19:06] LABS: Escherichia coli by PCR ***DETECTED*** (Not Detect); blaKPC Carbapenem-Resist Gene Not Detected (Not Detect)
[2016-07-07 19:07] LABS: Acinetobacter baumannii by PCR Not Detected (Not Detect); Candida albicans by PCR Not Detected (Not Detect); Candida glabrata by PCR Not Detected (Not Detect); Candida krusei by PCR Not Detected (Not Detect); Candida parapsilosis by PCR Not Detected (Not Detect); Candida tropicalis by PCR Not Detected (Not Detect); Enterococcus by PCR Not Detected (Not Detect); Klebsiella oxytoca by PCR Not Detected (Not Detect); Klebsiella pneumoniae by PCR Not Detected (Not Detect); Pseudomonas aeruginosa by PCR Not Detected (Not Detect); Serratia marcescens by PCR Not Detected (Not Detect); Staphylococcus aureus by PCR Not Detected (Not Detect); Streptococcus agalactiae(B)PCR Not Detected (Not Detect); Streptococcus by PCR Not Detected (Not Detect); Streptococcus pneumoniae PCR Not Detected (Not Detect); Streptococcus pyogenes (A) PCR Not Detected (Not Detect)
[2016-07-08] MEDS: Piperacillin/Tazobactam 3.375 GM in D5% in Water (Mini-Bag+) 100 ML IVPB SCH ×3 (00:31→16:51)
[2016-07-08] MEDS: MetroNIDAZOLE 500 MG/100 ML 500 MG/100 ML BAG IVPB SCH ×2 (03:48→08:54)
[2016-07-08 05:30] LABS: Basophils % 0.2 %; Hemoglobin 9.9 g/dL (11.5-15.4); Immature Granulocytes % 0.6 % (0-4)
[2016-07-08 05:31] LABS: Basophils # 0.1 K/mcL (0.0-0.2); Hematocrit 30.7 % (35.3-44.9); INR 1.3; Lymphocytes # 1.2 K/mcL (0.6-4.6); Lymphocytes % 4.3 %; Mean Corpuscular HGB Conc 32.2 g/dL (31.6-35.5); Mean Corpuscular Hemoglobin 29.6 pg (28.0-33.3); Mean Corpuscular Volume 91.6 fL (83.0-100.0); Monocytes # 0.9 K/mcL (0.0-1.3); Monocytes % 3.3 %; Neutrophils # 26.2 K/mcL (1.6-8.9); Prothrombin Time 14.6 Seconds (9.4-12.1); Red Blood Count 3.35 M/mcL (3.82-4.97); Red Cell Distribution Width 15.1 % (11.5-14.5); Segmented Neutrophils % 91.6 %
[2016-07-08 05:34] LABS: Activated Partial Thrombo Time 30.6 Seconds (26.0-36.0)
[2016-07-08 05:42] LABS: Platelet Count 51 K/mcL (140-400)
[2016-07-08 05:49] LABS: Albumin 2.2 g/dL (3.5-5.0); Albumin/Globulin Ratio 0.6 (1.1-2.2); Bilirubin,Total 2.1 mg/dL (0.2-1.2); Calcium 7.6 mg/dL (8.6-10.8); Globulin 3.5 g/dL (2.4-3.5); Potassium 3.8 mEq/L (3.5-4.5); Total Protein 5.7 g/dL (6.0-8.3)
[2016-07-08] MEDS: *HR* Heparin 5,000 UNIT/ML VIAL SQ SCH ×2 (05:59→16:51)
[2016-07-08 06:14] LABS: Platelet Estimate Decreased (Normal); Toxic Granulation Present (Not Present); Toxic Vacuolation Present (Not Present)
--- NOTE | 2016-07-08 07:14 | ECHO - Doppler Report ---
Echocardiogram Name: Mona Zamorano Date of Study: 07/07/2016 Date: 1950 Ht: 67.0 in Medical Record#: [id number] Age: 66 Wt: 219.0 lb Gender: Female BSA: 2.1 Order #: [id number] Location: [facility] Room #: 2N7 Reading Physician: Schuyler Ramesh MD, [facility] Supervisor Mill: Janice Higuera Ordering Physician: Jaci Alcantar DO Primary Physician: None Indications: Pulmonary edema, Concern for underlying cardiac Impressions: Suboptimal quality study due to clinical status (on BIPAP, supine for exam). Sinus tachycardia. Heart rate was approximately 110 bpm throughout this study. Normal LV systolic function, LVEF 50-55%. Not all myocardial segments were well visualized. Mildly dilated right ventricle with normal systolic function. Mildly dilated left atrium. No significant valvular dysfunction. No evidence of pulmonary hypertension. Left Ventricular Wall Motion: Rest Echo Findings All wall segments showed normal motion. Findings: Study Quality * Suboptimal quality study due to clinical status (on BIPAP, supine for exam). ECG Findings * Sinus tachycardia. Heart rate was approximately 110 bpm throughout this study. Left Ventricle * Normal LV systolic function, LVEF 50-55%. Not all myocardial segments were well visualized. * Normal LV chamber size and wall thickness. * Indeterminate diastolic function due to sinus tachycardia with E/A fusion. Right Ventricle * Mildly dilated right ventricle with normal systolic function. Left Atrium * Mildly dilated left atrium. Right Atrium * Normal right atrial size. Aorta * Normally sized aortic root. Pericardium * There is no pericardial effusion present. IVC * The IVC is not dilated. Aortic Valve * Aortic valve not well visualized. Appears trileaflet. * No aortic stenosis. * No aortic regurgitation. Mitral Valve * Normal mitral valve structure. * No mitral stenosis. * No mitral regurgitation. Tricuspid Valve * Tricuspid valve not well visualized. * No tricuspid stenosis. * Trace tricuspid regurgitation. * No evidence of pulmonary hypertension. Pulmonic Valve * Pulmonic valve not well visualized. * No pulmonic stenosis. * No pulmonic regurgitation. History Hypertension Hypercholesteremia Measurements: BP: 100/ 67 2D Normal Values RVIDd: 3.10 cm IVSd: 1.00 cm 0.6 - 1.0 cm LVIDd: 4.70 cm 3.7 - 5.6 cm LVPWd: 1.00 cm 0.6 - 1.1 cm LVIDs: 3.20 cm 1.5 - 3.6 cm AO: 3.50 cm < 4.0 cm %FS: 31.90 cm >25 % LA volume: 74 Tricuspid Valve TV Regurg Peak Grad: 13.00mmHg TV Regurg Peak El: 1.83m/sec Updated by Schuyelr Ramesh MD, [facility] on 07/08/2016 7:07:34 AM electronically signed on 07/08/2016 7:08:35 AM with status of Final Wall Motion Mcallister: 1=Normal, 2=Hypokinesis, 3=Akinesis, 4=Dyskinesis, 5=Aneurysmal, 6=Hyperkinetic, X=Not Visualized (Blank)=Missing
[2016-07-08] MEDS ORDERED: Lisinopril 20 MG TABLET PO SCH (09:00)
--- NOTE | 2016-07-08 09:32 | Electrocardiograph Report ---
Test Date: 2016-07-07 Pat Name: MAGALIS COLORADO Department: 105 Room: 2N07 Gender: F Glove Cutter: : 1950 Requested By: Dwight Felton Order Number: [id number] Reading MD: Juan Long DO Measurements Intervals [place] Rate: 115 P: 27 IA: 163 QRS: -34 QRSD: 94 T: 64 QT: 311 QTc: 379 Interpretive Statements SINUS TACHYCARDIA MARKED LEFT AXIS DEVIATION [QRS AXIS < -30] LOW QRS VOLTAGE IN PRECORDIAL LEADS [QRS DEFLECTION < 1.0 mV IN CHEST LEADS] PATTERN CONSISTENT WITH PULMONARY DISEASE Electronically Signed On 07-08-16 07:51:20 EST by Juan Long DO
--- NOTE | 2016-07-08 10:56 | Internal Med Progress Note ---
Date of Encounter: 07/08/16 Time of Encounter: 10:52 - Assessment and plan (1) Severe sepsis Current Visit: Yes Status: Acute Assessment and plan: Severe sepsis with tachycardia, leukocytosis, lactic acidosis , MORRIS and thrombocytopenia Source is Pyelonephritis and GNR bacteremia Preliminary Urine and Blood culture with GNR Urine strep and legionella Ag negative Patient lactate on admission 6.1, down to 3.0 PLT count 89 now donw to 51 INR is WNL MORRIS has slightly worsened with Cr now 1.89 from 1.19 Leukocytosis is worsening (however, patient received lasix for diuresis after pulmonary edema) CXR showed pulmonary edema ECHO showed LVEF 50-55% Patient had been started on Zosyn and Flagyl She has not had any previous hospitalization recently , nor is she immunocompromised At this time, recommendation is for treatment with Zosyn at pseudomonal doing of 4.45g q8h, however, patient has MORRIS and Zosyn is currently renally dosed Will d/c flagyl, patient has not had diarrhea in 24 hrs Will continue current management and monitor closely Oxygenation has improved with O2 requirement dropped from 15L per minute to 8L per minute We will escalate antibiotics by adding gentamicin/tobramycin based on clinical worsening and or cultures Encourage liberal fluid intake as tolerated for MORRIS, IVF has been held due to acute respiratory failure from pulmonary edema Patient is severely ill, prognosis is guarded She is high risk due to gram negative septicemia, MORRIS, Lactic acidosis and pulmonary edema She is DNR-CC-A and does not want to be intubated should need arise (2) Gram-negative bacteremia Current Visit: Yes Status: Acute Assessment and plan: As above (3) Pyelonephritis Current Visit: Yes Status: Acute Assessment and plan: Per CT scan: some hydrourter with no obstructing stones seen Will continue current management for now May need to repeat CT scan to rule out perinephric abscess (4) MORRIS (acute kidney injury) Current Visit: Yes Status: Acute Assessment and plan: As in sepsis (5) Acute hypoxemic respiratory failure Current Visit: Yes Status: Acute Assessment and plan: Improving, secondary to pulmonary edema Now on 8L /min O2 from 15L Continue supplemental O2 Incentive spirometry (6) Lactic acidosis Current Visit: Yes Status: Acute Assessment and plan: Improving, LFTs WNL, rpt a.m (7) Pneumonia Current Visit: Yes Status: Suspected Assessment and plan: CXR/Ct with no infiltrates Ruled out Qualifiers: Pneumonia type: due to unspecified organism Laterality: right Lung location: lower lobe of lung Qualified Code(s): J18.9 - Pneumonia, unspecified organism (8) Renal cyst Current Visit: Yes Status: Chronic (9) Thrombocytopenia Current Visit: Yes Status: Acute Assessment and plan: Secondary to Severe sepsis NO current evidence of DIC, INR WNL, Hb is stable However, will check LDH, Fibrinogen and D-dimer (10) Hypertension Current Visit: Yes Status: Chronic Assessment and plan: Hold meds for now. BP is acceptable Qualifiers: Hypertension type: essential hypertension Qualified Code(s): I10 - Essential (primary) hypertension (11) HLD (hyperlipidemia) Current Visit: Yes Status: Chronic Qualifiers: Hyperlipidemia type: unspecified Qualified Code(s): E78.5 - Hyperlipidemia , unspecified (12) GERD (gastroesophageal reflux disease) Current Visit: Yes Status: Chronic Qualifiers: Esophagitis presence: without esophagitis Qualified Code(s): K21.9 - Gastro -esophageal reflux disease without esophagitis - Time Spent With Patient 25 - 35 minutes (Patient severely ill with gram negative septicemia, time spent examining, adjusting and revieweing management) - Subjective Interval history: 66 Y/O F with PMH of HtN and GERD She was admitted 07/07 for management of severe sepsis with lactic acidosis, thrombcytopenia , UTI, MORRIS, and gastroenteritis Hospital stay yesterday was complicated by acute respiratory failure with hypoxia and pulmonary edema. IVF were promptly stopped and patient was placed on BiPAP. She also received IV lasix stat Today, Patient is seen at bedside this morning with spouse She denied any new complaints, complains of feeling weak, shortness of breath has improved She has remained afebrile but is tachycardic - Constitutional Vitals: Temp Pulse Resp BP Pulse Ox 97.9 F 102 35 119/69 92 L 07/08/16 08:15 07/08/16 08:15 07/08/16 08:15 07/08/16 08:15 07/08/16 08:15 Afebrile, tachycardic with HR 102-104 Saturating 93% on 12L by NR RR 18-10 BP WNL General appearance: Present: cooperative, mild distress, A&O X 3, pleasant, answers questions appropriately - Head Head exam: Present: atraumatic - Eye Eye exam: Present: PERRL, conjuntiva pink, sclera anicteric - ENT ENT exam: Present: mucous membranes dry - Neck Neck exam general surgery: Present: normal inspection - Respiratory Additional comments: Shallow breaths, bibasilar rales, no rhonchi. NO wheezing. - Cardiovascular Cardiovascular exam: Present: +S1, +S2, tachycardia - GI/Abdominal GI/Abdominal exam: Present: normal bowel sounds, soft, no peritoneal signs. Absent: tenderness - Additional comments: [place] draining clear urine - Extremities Exam Extremities exam: Absent: pedal edema - Neurological Exam Neurological exam: Present: alert, oriented X3, no focal deficits. Absent: pronater drift, facial droop, speech deficit - Skin Skin exam: Present: dry Internal Medicine: Result - Labs CBC & Chem 7: 07/08/16 05:05 07/08/16 05:05 Labs: Short CBC 07/08/16 Range/Units 05:05 WBC 28.6 H D (4.3-11.1) K/mcL Hgb 9.9 L (11.5-15.4) g/dL Hct 30.7 L (35.3-44.9) % Plt Count 51 L (140-400) K/mcL Neutrophils # 26.2 H (1.6-8.9) K/mcL BMP 07/08/16 05:05 Sodium 139 Potassium 3.8 Chloride 113 H Carbon Dioxide 18 L BUN 47 H Creatinine 1.89 H D Glucose 106 H Calcium 7.6 L Liver Function 07/08/16 Range/Units 05:05 Total Bilirubin 2.1 H (0.2-1.2) mg/dL AST 34 (5-34) Units/L ALT 51 (0-55) Units/L Alkaline Phosphatase 164 H (38-126) Units/L Albumin 2.2 L (3.5-5.0) g/dL - ABG Interpretation ABG results: ABG ABG pH 7.21 pH Units (7.32-7.45) L 07/07/16 15:45 ABG pCO2 43 mmHg (35-45) 07/07/16 15:45 ABG pO2 93 mmHg (85-104) 07/07/16 15:45 ABG O2 Saturation 95 % (95-98) 07/07/16 15:45 PT/INR, D-dimer PT 14.6 Seconds (9.4-12.1) H 07/08/16 05:05 - Impressions Impressions Chest X-Ray 07/07/16 15:16 IMPRESSION: Cardiomegaly. Moderate pulmonary vascular congestion. Atelectasis at left lung base. Small left pleural effusion. D/ / Abdias Cazares MD / Abdias Cazares MD Interpreting Provider: Abdias Cazares MD Consult Discharge Plan - Plan Referrals: Linda Ryees CNP [Primary Care Provider] - 07/12/16 9:00 am ()
[2016-07-08 17:00] LABS: D-Dimer 28668 ng/mLFEU (0-500); Fibrinogen 871 mg/dL (169-393)
[2016-07-09] MEDS: Piperacillin/Tazobactam 3.375 GM in D5% in Water (Mini-Bag+) 100 ML IVPB SCH
[2016-07-09 03:05] LABS: Basophils % 0.2 %; Eosinophils % 0.1 %; Hemoglobin 10.1 g/dL (11.5-15.4); Lymphocytes % 4.7 %; Nucleated Red Blood Cells 0.1 /100 WBC (0); Segmented Neutrophils % 89.7 %
[2016-07-09 03:07] LABS: Basophils # 0.1 K/mcL (0.0-0.2); Hematocrit 30.7 % (35.3-44.9); Lymphocytes # 1.4 K/mcL (0.6-4.6); Mean Corpuscular HGB Conc 32.9 g/dL (31.6-35.5); Mean Corpuscular Hemoglobin 29.5 pg (28.0-33.3); Mean Corpuscular Volume 89.8 fL (83.0-100.0); Monocytes # 1.3 K/mcL (0.0-1.3); Monocytes % 4.3 %; Neutrophils # 26.4 K/mcL (1.6-8.9); Red Blood Count 3.42 M/mcL (3.82-4.97); Red Cell Distribution Width 14.7 % (11.5-14.5)
[2016-07-09 03:09] LABS: INR 1.1; Prothrombin Time 12.1 Seconds (9.4-12.1)
[2016-07-09 03:16] LABS: Platelet Count 58 K/mcL (140-400)
[2016-07-09 03:18] LABS: Alanine Aminotransferase 37 Units/L (0-55); Albumin/Globulin Ratio 0.5 (1.1-2.2); Alkaline Phosphatase 156 Units/L (38-126); Aspartate Amino Transferase 24 Units/L (5-34); BUN/Creatinine Ratio 44 (6-26); Bilirubin,Total 1.4 mg/dL (0.2-1.2); Blood Urea Nitrogen 38 mg/dL (7-20); Calcium 8.2 mg/dL (8.6-10.8); Carbon Dioxide 21 mEq/L (19-29); Chloride 112 mEq/L (98-109); Globulin 3.7 g/dL (2.4-3.5); Glucose 91 mg/dL (70-99); Osmolality,Calculated 299 (280-300); Potassium 3.4 mEq/L (3.5-4.5); Sodium 140 mEq/L (136-145); Total Protein 5.7 g/dL (6.0-8.3); eGFR For African Americans > 60 (> 60); eGFR For Non-African Americans > 60 (> 60)
[2016-07-09 03:41] LABS: Platelet Estimate Decreased (Normal)
[2016-07-09] MEDS: *HR* Heparin 5,000 UNIT/ML VIAL SQ SCH (06:01)
[2016-07-09] MEDS ORDERED: Ipratropium/Albuterol Neb 3 ML IH ONE (07:54)
--- NOTE | 2016-07-09 07:59 | Internal Med Progress Note ---
Date of Encounter: 07/09/16 Time of Encounter: 07:56 - Assessment and plan (1) Severe sepsis Current Visit: Yes Status: Acute Assessment and plan: Severe sepsis with tachycardia, leukocytosis, lactic acidosis , MORRIS and thrombocytopenia Source is Pyelonephritis and E.Coli bacteremia Final sensitivity of urine and blood culture with pansensitive E.COli LActic acidosis has resolved 0.8 from 3.0 PLT count stable at 58, no bleeding , no DIC INR is WNL MORRIS has resolved Cr 0.86 from 1.89 Leukocytosis is worsening (however, patient received lasix for diuresis after pulmonary edema) CXR showed pulmonary edema ECHO showed LVEF 50-55% Flagyl was discontinued 07/08 as patient did not have diarrhea for >24 hours Will increase Zosyn to 4.5g q6h Will continue current management and monitor closely Oxygenation has improved, continue supplemental O2 Encourage liberal fluid intake Patient is severely ill, prognosis is guarded She is high risk due to gram negative septicemia, MORRIS, Lactic acidosis and pulmonary edema She is DNR-CC-A and does not want to be intubated should need arise (2) Gram-negative bacteremia Current Visit: Yes Status: Acute Assessment and plan: As above Repeat blood cultures a.m (3) Pyelonephritis Current Visit: Yes Status: Acute Assessment and plan: Per CT scan: some hydrourter with no obstructing stones seen Will continue current management for now May need to repeat CT scan to rule out perinephric abscess (4) MORRIS (acute kidney injury) Current Visit: Yes Status: Acute Assessment and plan: As in sepsis (5) Acute hypoxemic respiratory failure Current Visit: Yes Status: Acute Assessment and plan: Improving, secondary to pulmonary edema Now on 8L /min O2 from 15L Continue supplemental O2 Given 20mg IV lasix stat this morning as she is wheezing and still has crackles , will monitor chemistry Duoneb stat Continue Incentive spirometry (6) Lactic acidosis Current Visit: Yes Status: Acute Assessment and plan: resolved (7) Pneumonia Current Visit: Yes Status: Suspected Assessment and plan: CXR/Ct with no infiltrates Ruled out Qualifiers: Pneumonia type: due to unspecified organism Laterality: right Lung location: lower lobe of lung Qualified Code(s): J18.9 - Pneumonia, unspecified organism (8) Renal cyst Current Visit: Yes Status: Chronic (9) Thrombocytopenia Current Visit: Yes Status: Acute Assessment and plan: Secondary to Severe sepsis NO current evidence of DIC, INR WNL, Fibrinogen is elevated. D-dimers elevated due to sepsis Hb is stable D/C heparin for DVT prophylaxis SCDs for prophylaxis until platelet count improves (10) Hypertension Current Visit: Yes Status: Chronic Assessment and plan: Hold meds for now. BP is acceptable Qualifiers: Hypertension type: essential hypertension Qualified Code(s): I10 - Essential (primary) hypertension (11) HLD (hyperlipidemia) Current Visit: Yes Status: Chronic Qualifiers: Hyperlipidemia type: unspecified Qualified Code(s): E78.5 - Hyperlipidemia , unspecified (12) GERD (gastroesophageal reflux disease) Current Visit: Yes Status: Chronic Qualifiers: Esophagitis presence: without esophagitis Qualified Code(s): K21.9 - Gastro -esophageal reflux disease without esophagitis - Subjective Interval history: 66 Y/O F with PMH of HtN and GERD She was admitted 07/07 for management of severe sepsis with lactic acidosis secondary to gram negative bacteremia and pylonephritis, thrombocytopenia , MORRIS , and gastroenteritis Hospital stay was complicated by acute respiratory failure with hypoxia and pulmonary edema. Today, Patient is seen at bedside this morning with spouse She was weaned from 15L high flow O2 to 8L at close of day yesterday She denies any new complains and reports some improvement She is on clear liquid diet which will be advanced Lactic acidosis and MORRIS has resolved Potassium is low INR remains WNL Will increase Zosyn to 4.5g q6h - Constitutional Vitals: Temp Pulse Resp BP Pulse Ox 98.1 F 93 20 145/87 97 07/09/16 07:37 07/09/16 07:37 07/09/16 07:37 07/09/16 07:37 07/09/16 07:37 General appearance: Present: cooperative, mild distress, A&O X 3, pleasant, answers questions appropriately - Head Head exam: Present: atraumatic - Eye Eye exam: Present: PERRL, conjuntiva pink, sclera anicteric - ENT ENT exam: Present: mucous membranes moist - Neck Neck exam general surgery: Present: normal inspection - Respiratory Additional comments: Shallow breathing, bilateral expiratory wheezing and bibasilar coarse crackles - Cardiovascular Cardiovascular exam: Present: RRR, +S1, +S2. Absent: diastolic murmur, gallop, rubs, systolic murmur - GI/Abdominal GI/Abdominal exam: Present: normal bowel sounds, soft, no peritoneal signs. Absent: distended, tenderness - Extremities Exam Extremities exam: Present: warm, radial pulses palpable and symetrical. Absent : calf tenderness, cyanotic, pedal edema - Neurological Exam Neurological exam: Present: CN II-XII intact, oriented X3, no focal deficits. Absent: pronater drift, facial droop, speech deficit - Skin Skin exam: Present: dry, intact Internal Medicine: Result - Labs CBC & Chem 7: 07/09/16 02:55 07/09/16 02:55 Labs: Short CBC 07/09/16 Range/Units 02:55 WBC 29.4 H (4.3-11.1) K/mcL Hgb 10.1 L (11.5-15.4) g/dL Hct 30.7 L (35.3-44.9) % Plt Count 58 L (140-400) K/mcL Neutrophils # 26.4 H (1.6-8.9) K/mcL BMP 07/09/16 02:55 Sodium 140 Potassium 3.4 L Chloride 112 H Carbon Dioxide 21 BUN 38 H Creatinine 0.86 D Glucose 91 Calcium 8.2 L Liver Function 07/09/16 Range/Units 02:55 Total Bilirubin 1.4 H (0.2-1.2) mg/dL AST 24 (5-34) Units/L ALT 37 (0-55) Units/L Alkaline Phosphatase 156 H (38-126) Units/L Albumin 2.0 L (3.5-5.0) g/dL - ABG Interpretation ABG results: ABG ABG pH 7.21 pH Units (7.32-7.45) L 07/07/16 15:45 ABG pCO2 43 mmHg (35-45) 07/07/16 15:45 ABG pO2 93 mmHg (85-104) 07/07/16 15:45 ABG O2 Saturation 95 % (95-98) 07/07/16 15:45 PT/INR, D-dimer PT 12.1 Seconds (9.4-12.1) 07/09/16 02:55 D-Dimer [id number] ng/mLFEU (0-500) H 07/08/16 16:30 Consult Discharge Plan - Plan Referrals: Linda Reyes CNP [Primary Care Provider] - 07/12/16 9:00 am ()
[2016-07-09] MEDS: Furosemide 20 MG/2 ML VIAL IVP SCH (08:28)
[2016-07-09] MEDS: Piperacillin/Tazobactam 4.5 GM in D5% in Water (Mini-Bag+) 100 ML IVPB SCH ×3 (08:44→19:40)
[2016-07-10] MEDS: Piperacillin/Tazobactam 4.5 GM in D5% in Water (Mini-Bag+) 100 ML IVPB SCH ×4 (01:54→20:55)
[2016-07-10] MEDS ORDERED: Lisinopril 20 MG TABLET PO SCH (04:30)
[2016-07-10 07:08] LABS: Eosinophils % 0.4 %; Red Cell Distribution Width 14.6 % (11.5-14.5)
[2016-07-10 07:15] LABS: Basophils # 0.1 K/mcL (0.0-0.2); Basophils % 0.3 %; Eosinophils # 0.1 K/mcL (0.0-0.6); Hematocrit 34.7 % (35.3-44.9); Hemoglobin 11.4 g/dL (11.5-15.4); Immature Granulocytes % 1.9 % (0-4); Immature Platelets 10.5 % (1.1-6.1); Lymphocytes # 1.5 K/mcL (0.6-4.6); Lymphocytes % 9.2 %; Mean Corpuscular HGB Conc 32.9 g/dL (31.6-35.5); Mean Corpuscular Hemoglobin 28.9 pg (28.0-33.3); Mean Corpuscular Volume 88.1 fL (83.0-100.0); Mean Platelet Volume 12.3 fL (9.4-12.4); Monocytes # 1.5 K/mcL (0.0-1.3); Monocytes % 9.4 %; Neutrophils # 12.5 K/mcL (1.6-8.9); Red Blood Count 3.94 M/mcL (3.82-4.97); Segmented Neutrophils % 78.8 %
[2016-07-10 07:31] LABS: Alanine Aminotransferase 29 Units/L (0-55); Albumin 2.1 g/dL (3.5-5.0); Albumin/Globulin Ratio 0.5 (1.1-2.2); Alkaline Phosphatase 210 Units/L (38-126); Aspartate Amino Transferase 28 Units/L (5-34); BUN/Creatinine Ratio 42 (6-26); Bilirubin,Total 1.7 mg/dL (0.2-1.2); Blood Urea Nitrogen 33 mg/dL (7-20); Calcium 8.6 mg/dL (8.6-10.8); Carbon Dioxide 22 mEq/L (19-29); Chloride 111 mEq/L (98-109); Globulin 4.6 g/dL (2.4-3.5); Glucose 120 mg/dL (70-99); Osmolality,Calculated 302 (280-300); Sodium 142 mEq/L (136-145); Total Protein 6.7 g/dL (6.0-8.3); eGFR For African Americans > 60 (> 60); eGFR For Non-African Americans > 60 (> 60)
[2016-07-10 07:39] LABS: Platelet Count 77 K/mcL (140-400)
[2016-07-10] MEDS: Furosemide 20 MG/2 ML VIAL IVP SCH (08:58)
[2016-07-10] MEDS: amLODIPine 5 MG TABLET PO SCH (08:58)
[2016-07-10] MEDS ORDERED: Furosemide 20 MG TABLET PO PRN (12:50)
--- NOTE | 2016-07-10 12:50 | Internal Med Progress Note ---
Date of Encounter: 07/10/16 Time of Encounter: 09:10 - Assessment and plan (1) Severe sepsis Current Visit: Yes Status: Acute Assessment and plan: Severe sepsis on admission with tachycardia, leukocytosis, lactic acidosis , MORRIS and thrombocytopenia Source is Pyelonephritis and E.Coli bacteremia Final sensitivity of urine and blood culture with pansensitive E.COli LActic acidosis has resolved PLT improving, no DIC MORRIS has resolved Leukocytosis is improving CXR 06/27 showed pulmonary edema, respiratory status improved with supplemental O2 and incentive spirometry ECHO showed LVEF 50-55% Day 3 On Zosyn, continue same Oxygenation has improved, continue supplemental O2 Encourage liberal fluid intake She is DNR-CC-A and does not want to be intubated should need arise (2) Gram-negative bacteremia Current Visit: Yes Status: Acute Assessment and plan: As above (3) Pyelonephritis Current Visit: Yes Status: Acute Assessment and plan: Per CT scan: some hydrourter with no obstructing stones seen Will continue current management for now, improving (4) MORRIS (acute kidney injury) Current Visit: Yes Status: Resolved Assessment and plan: resolved, As in sepsis (5) Acute hypoxemic respiratory failure Current Visit: Yes Status: Acute Assessment and plan: Improving, secondary to pulmonary edema Now on 2L /min O2 from 15L Continue supplemental O2 Continue lasix po (6) Lactic acidosis Current Visit: Yes Status: Resolved Assessment and plan: resolved (7) Pneumonia Current Visit: Yes Status: Suspected Assessment and plan: CXR/Ct with no infiltrates Ruled out Qualifiers: Pneumonia type: due to unspecified organism Laterality: right Lung location: lower lobe of lung Qualified Code(s): J18.9 - Pneumonia, unspecified organism (8) Renal cyst Current Visit: Yes Status: Chronic (9) Thrombocytopenia Current Visit: Yes Status: Acute Assessment and plan: Secondary to Severe sepsis NO current evidence of DIC, INR WNL, Fibrinogen is elevated. D-dimers elevated due to sepsis improving SCDs for dvt prophylaxis (10) Hypertension Current Visit: Yes Status: Chronic Assessment and plan: Continue amlodipine Add lopressor Qualifiers: Hypertension type: essential hypertension Qualified Code(s): I10 - Essential (primary) hypertension (11) HLD (hyperlipidemia) Current Visit: Yes Status: Chronic Qualifiers: Hyperlipidemia type: unspecified Qualified Code(s): E78.5 - Hyperlipidemia , unspecified (12) GERD (gastroesophageal reflux disease) Current Visit: Yes Status: Chronic Qualifiers: Esophagitis presence: without esophagitis Qualified Code(s): K21.9 - Gastro -esophageal reflux disease without esophagitis - Subjective Interval history: 66 Y/O F with PMH of HtN and GERD She was admitted 07/07 for management of severe sepsis with lactic acidosis secondary to gram negative bacteremia and pylonephritis, thrombocytopenia , MORRIS , and gastroenteritis Hospital stay was complicated by acute respiratory failure with hypoxia and pulmonary edema. MORRIS, Lactic acidosis has resolved. PLT count is improving Leukocytosis is downtrending and kidney function has returned to normal Overnight, blood pressure was elevated and needed IV hydralazine pushes She is seen at bedside with her spouse and RN Maira Patient continues to make clinical improvement Now on 2L per minute supplemental O2 and saturating 92-94% Has very poor oral intake, she does not have dysphasia, she states she has poor appetite Will hold off on Lisinopril due to recent MORRIS and start on amlodipine, will add BB as necessary due to beneficial as well for recent CHF Will continue Zosyn at same dose D/C Urethral catheter today - Constitutional Vitals: Temp Pulse Resp BP Pulse Ox 98.6 F 98 24 171/92 92 L 07/10/16 11:37 07/10/16 11:55 07/10/16 11:37 07/10/16 11:37 07/10/16 11:37 General appearance: Present: cooperative, A&O X 3, pleasant, no acute distress, answers questions appropriately - Head Head exam: Present: atraumatic, normocephalic - Eye Eye exam: Present: PERRL, conjuntiva pink, sclera anicteric Pupils: Present: PERRL - Neck Neck exam general surgery: Present: supple, trachea midline. Absent: lymphadenopathy - Respiratory Respiratory exam: Present: CTAB. Absent: accessory muscle use, rales, rhonchi, wheezes - Cardiovascular Cardiovascular exam: Present: RRR, +S1, +S2. Absent: diastolic murmur, gallop, rubs, systolic murmur - GI/Abdominal GI/Abdominal exam: Present: normal bowel sounds, soft, no peritoneal signs. Absent: distended, tenderness - Extremities Exam Extremities exam: Present: warm, radial pulses palpable and symetrical. Absent : calf tenderness, cyanotic, pedal edema - Neurological Exam Neurological exam: Present: CN II-XII intact, oriented X3, no focal deficits. Absent: pronater drift, facial droop, speech deficit - Skin Skin exam: Present: dry, intact Internal Medicine: Result - Labs CBC & Chem 7: 07/10/16 06:00 07/10/16 06:00 Labs: Short CBC 07/10/16 Range/Units 06:00 WBC 15.9 H (4.3-11.1) K/mcL Hgb 11.4 L (11.5-15.4) g/dL Hct 34.7 L (35.3-44.9) % Plt Count 77 L (140-400) K/mcL Neutrophils # 12.5 H (1.6-8.9) K/mcL BMP 07/10/16 06:00 Sodium 142 Potassium 4.0 Chloride 111 H Carbon Dioxide 22 BUN 33 H Creatinine 0.79 Glucose 120 H Calcium 8.6 Liver Function 07/10/16 Range/Units 06:00 Total Bilirubin 1.7 H (0.2-1.2) mg/dL AST 28 (5-34) Units/L ALT 29 (0-55) Units/L Alkaline Phosphatase 210 H (38-126) Units/L Albumin 2.1 L (3.5-5.0) g/dL - ABG Interpretation ABG results: ABG ABG pH 7.21 pH Units (7.32-7.45) L 07/07/16 15:45 ABG pCO2 43 mmHg (35-45) 07/07/16 15:45 ABG pO2 93 mmHg (85-104) 07/07/16 15:45 ABG O2 Saturation 95 % (95-98) 07/07/16 15:45 PT/INR, D-dimer PT 12.1 Seconds (9.4-12.1) 07/09/16 02:55 D-Dimer 33272 ng/mLFEU (0-500) H 07/08/16 16:30 - VTE Documentation of Mechanical Device: Intermittent pneumatic compression device Consult Discharge Plan - Plan Referrals: Linda Reyes CNP [Primary Care Provider] - 07/12/16 9:00 am ()
[2016-07-11] MEDS: Piperacillin/Tazobactam 4.5 GM in D5% in Water (Mini-Bag+) 100 ML IVPB SCH ×4 (01:01→19:56)
[2016-07-11 05:48] LABS: Red Cell Distribution Width 14.6 % (11.5-14.5)
[2016-07-11 05:50] LABS: Hematocrit 33.5 % (35.3-44.9); Immature Platelets 10.8 % (1.1-6.1); Mean Corpuscular HGB Conc 32.8 g/dL (31.6-35.5); Mean Corpuscular Hemoglobin 28.4 pg (28.0-33.3); Mean Corpuscular Volume 86.3 fL (83.0-100.0); Mean Platelet Volume 12.7 fL (9.4-12.4); Red Blood Count 3.88 M/mcL (3.82-4.97)
[2016-07-11 06:08] LABS: Albumin/Globulin Ratio 0.5 (1.1-2.2); Bilirubin,Total 1.6 mg/dL (0.2-1.2); Calcium 8.2 mg/dL (8.6-10.8); Globulin 3.9 g/dL (2.4-3.5); Potassium 3.1 mEq/L (3.5-4.5); Total Protein 5.9 g/dL (6.0-8.3)
[2016-07-11 06:25] LABS: Platelet Count 79 K/mcL (140-400)
[2016-07-11 06:27] LABS: Lymphocytes # 2.2 K/mcL (0.6-4.6); Monocytes # 0.6 K/mcL (0.0-1.3); Platelet Estimate Decreased (Normal)
[2016-07-11 06:28] LABS: Large Platelets Present (Not Present); Reactive Lymphocytes Present (Not Present)
[2016-07-11] MEDS ORDERED: 0.9 % Sodium Chloride 500 ML IVC ONE (08:09)
[2016-07-11] MEDS: amLODIPine 5 MG TABLET PO SCH (09:03)
--- NOTE | 2016-07-11 15:36 | Internal Med Progress Note ---
Date of Encounter: 07/11/16 Time of Encounter: 10:45 - Assessment and plan (1) Severe sepsis Current Visit: Yes Status: Acute Assessment and plan: Severe sepsis on admission with tachycardia, leukocytosis, lactic acidosis , MORRIS and thrombocytopenia Source is Pyelonephritis and E.Coli bacteremia Final sensitivity of urine and blood culture with pansensitive E.COli Lactic acidosis has resolved PLT improving, no DIC MORRIS has resolved Leukocytosis is improving CXR 06/27 showed pulmonary edema, respiratory status improved with supplemental O2 and incentive spirometry ECHO showed LVEF 50-55% Day 4 On Zosyn, continue same Oxygenation has improved, continue supplemental O2 Encourage liberal fluid intake She is DNR-CC-A and does not want to be intubated should need arise (2) Gram-negative bacteremia Current Visit: Yes Status: Acute Assessment and plan: As above (3) Pyelonephritis Current Visit: Yes Status: Acute Assessment and plan: Per CT scan: some hydrourter with no obstructing stones seen Will continue current management for now, improving (4) MORRIS (acute kidney injury) Current Visit: Yes Status: Resolved Assessment and plan: resolved as at 07/09 Today with slight increase in Cr patient received lisinopril yesterday and alsix Hold lasix gentle bolus Rpt chem a.m (5) Acute hypoxemic respiratory failure Current Visit: Yes Status: Acute Assessment and plan: Improving, secondary to pulmonary edema Now on 2L /min O2 from 15L Continue supplemental O2 Hold lasix for now (6) Lactic acidosis Current Visit: Yes Status: Resolved Assessment and plan: resolved (7) Pneumonia Current Visit: Yes Status: Suspected Assessment and plan: CXR/Ct with no infiltrates Ruled out Qualifiers: Pneumonia type: due to unspecified organism Laterality: right Lung location: lower lobe of lung Qualified Code(s): J18.9 - Pneumonia, unspecified organism (8) Renal cyst Current Visit: Yes Status: Chronic (9) Thrombocytopenia Current Visit: Yes Status: Acute Assessment and plan: Secondary to Severe sepsis NO current evidence of DIC, INR WNL, Fibrinogen is elevated. D-dimers elevated due to sepsis improving SCDs for dvt prophylaxis (10) Hypertension Current Visit: Yes Status: Chronic Assessment and plan: Continue amlodipine Increased lopressor, monitor Qualifiers: Hypertension type: essential hypertension Qualified Code(s): I10 - Essential (primary) hypertension (11) HLD (hyperlipidemia) Current Visit: Yes Status: Chronic Qualifiers: Hyperlipidemia type: unspecified Qualified Code(s): E78.5 - Hyperlipidemia , unspecified (12) GERD (gastroesophageal reflux disease) Current Visit: Yes Status: Chronic Qualifiers: Esophagitis presence: without esophagitis Qualified Code(s): K21.9 - Gastro -esophageal reflux disease without esophagitis (13) Hypokalemia Current Visit: Yes Status: Acute Assessment and plan: Replaced - Subjective Interval history: 66 Y/O F with PMH of HtN and GERD She was admitted 07/07 for management of severe sepsis with lactic acidosis secondary to gram negative bacteremia and pylonephritis, thrombocytopenia , MORRIS , and gastroenteritis Hospital stay was complicated by acute respiratory failure with hypoxia and pulmonary edema. Seen with no new complains Reports significant improvement but still has poor appetite - Constitutional Vitals: Temp Pulse Resp BP Pulse Ox 98.2 F 82 20 138/78 93 L 07/11/16 15:18 07/11/16 15:18 07/11/16 15:18 07/11/16 15:18 07/11/16 15:18 General appearance: Present: cooperative, A&O X 3, pleasant, no acute distress, answers questions appropriately Internal Medicine: Result - Labs CBC & Chem 7: 07/11/16 04:35 07/11/16 04:35 Labs: Short CBC 07/11/16 Range/Units 04:35 WBC 15.9 H (4.3-11.1) K/mcL Hgb 11.0 L (11.5-15.4) g/dL Hct 33.5 L (35.3-44.9) % Plt Count 79 L (140-400) K/mcL Neutrophils # 13.0 H (1.6-8.9) K/mcL BMP 07/11/16 04:35 Sodium 140 Potassium 3.1 L Chloride 109 Carbon Dioxide 22 BUN 34 H Creatinine 1.21 H D Glucose 120 H Calcium 8.2 L Liver Function 07/11/16 Range/Units 04:35 Total Bilirubin 1.6 H (0.2-1.2) mg/dL AST 16 (5-34) Units/L ALT 20 (0-55) Units/L Alkaline Phosphatase 170 H (38-126) Units/L Albumin 2.0 L (3.5-5.0) g/dL - ABG Interpretation ABG results: ABG ABG pH 7.21 pH Units (7.32-7.45) L 07/07/16 15:45 ABG pCO2 43 mmHg (35-45) 07/07/16 15:45 ABG pO2 93 mmHg (85-104) 07/07/16 15:45 ABG O2 Saturation 95 % (95-98) 07/07/16 15:45 PT/INR, D-dimer PT 12.1 Seconds (9.4-12.1) 07/09/16 02:55 D-Dimer [id number] ng/mLFEU (0-500) H 07/08/16 16:30 - VTE Documentation of Mechanical Device: Intermittent pneumatic compression device Consult Discharge Plan - Plan Referrals: Linda Reyes CNP [Primary Care Provider] - 07/12/16 9:00 am ()
[2016-07-12] MEDS: Piperacillin/Tazobactam 4.5 GM in D5% in Water (Mini-Bag+) 100 ML IVPB SCH ×3 (02:43→13:34)
[2016-07-12 06:21] LABS: Hematocrit 33.8 % (35.3-44.9); Hemoglobin 11.1 g/dL (11.5-15.4); Mean Corpuscular HGB Conc 32.8 g/dL (31.6-35.5); Mean Corpuscular Hemoglobin 29.3 pg (28.0-33.3); Mean Corpuscular Volume 89.2 fL (83.0-100.0); Mean Platelet Volume 12.6 fL (9.4-12.4); Monocytes # 1.3 K/mcL (0.0-1.3); Platelet Count 104 K/mcL (140-400); Red Blood Count 3.79 M/mcL (3.82-4.97); Red Cell Distribution Width 14.7 % (11.5-14.5)
[2016-07-12 06:26] LABS: Albumin 2.1 g/dL (3.5-5.0); Albumin/Globulin Ratio 0.5 (1.1-2.2); Bilirubin,Total 1.2 mg/dL (0.2-1.2); Calcium 8.1 mg/dL (8.6-10.8); Potassium 3.6 mEq/L (3.5-4.5); Total Protein 6.1 g/dL (6.0-8.3)
[2016-07-12 07:26] LABS: Lymphocytes # 2.5 K/mcL (0.6-4.6); Neutrophils # 11.1 K/mcL (1.6-8.9); Platelet Estimate Decreased (Normal)
[2016-07-12] MEDS: Multivit/Ca/Min/Fe/FA 1 TAB TABLET PO SCH (09:09)
[2016-07-12] MEDS: amLODIPine 5 MG TABLET PO SCH (09:09)
--- NOTE | 2016-07-12 16:00 | Internal Med Progress Note ---
Date of Encounter: 07/12/16 Time of Encounter: 09:30 - Assessment and plan (1) Severe sepsis Current Visit: Yes Status: Acute Assessment and plan: Severe sepsis on admission with tachycardia, leukocytosis, lactic acidosis , MORRIS and thrombocytopenia Source is Pyelonephritis and E.Coli bacteremia Final sensitivity of urine and blood culture with pansensitive E.COli CXR 06/27 showed pulmonary edema, respiratory status improved with supplemental O2 and incentive spirometry ECHO showed LVEF 50-55% She has received 5 days of Zosyn, patent has improved, will transition to oral Levoquin 750mg daily from 07/13/16 a.m PT/OT review for d/c disposition She is DNR-CC-A and does not want to be intubated should need arise (2) Gram-negative bacteremia Current Visit: Yes Status: Acute Assessment and plan: As above (3) Pyelonephritis Current Visit: Yes Status: Acute Assessment and plan: some hydrourter , preeti cyst , with no obstructing stones seen Will continue current management for now, improving (4) MRORIS (acute kidney injury) Current Visit: Yes Status: Resolved Assessment and plan: resolved as at 07/09 Slight increase n Cr following lasix and lisnopril Now improving, since holding both medications Continue to monitor Encourage liberal fluid intake (5) Acute hypoxemic respiratory failure Current Visit: Yes Status: Acute Assessment and plan: Improved, secondary to pulmonary edema Now on 2L /min O2 from 15L Continue supplemental O2 Hold lasix for now (6) Lactic acidosis Current Visit: Yes Status: Resolved Assessment and plan: resolved (7) Pneumonia Current Visit: Yes Status: Suspected Assessment and plan: CXR/Ct with no infiltrates Ruled out Qualifiers: Pneumonia type: due to unspecified organism Laterality: right Lung location: lower lobe of lung Qualified Code(s): J18.9 - Pneumonia, unspecified organism (8) Renal cyst Current Visit: Yes Status: Chronic (9) Thrombocytopenia Current Visit: Yes Status: Acute Assessment and plan: Secondary to Severe sepsis NO current evidence of DIC, INR WNL, Fibrinogen is elevated. D-dimers elevated due to sepsis improving SCDs for dvt prophylaxis (10) Hypertension Current Visit: Yes Status: Chronic Assessment and plan: Continue amlodipine and loppressor Qualifiers: Hypertension type: essential hypertension Qualified Code(s): I10 - Essential (primary) hypertension (11) HLD (hyperlipidemia) Current Visit: Yes Status: Chronic Qualifiers: Hyperlipidemia type: unspecified Qualified Code(s): E78.5 - Hyperlipidemia , unspecified (12) GERD (gastroesophageal reflux disease) Current Visit: Yes Status: Chronic Qualifiers: Esophagitis presence: without esophagitis Qualified Code(s): K21.9 - Gastro -esophageal reflux disease without esophagitis (13) Hypokalemia Current Visit: Yes Status: Acute Assessment and plan: Replaced - Subjective Interval history: 66 Y/O F with PMH of HtN and GERD She was admitted 07/07 for management of severe sepsis with lactic acidosis secondary to gram negative bacteremia and pylonephritis, thrombocytopenia , MORRIS , and gastroenteritis Hospital stay was complicated by acute respiratory failure with hypoxia and pulmonary edema. Seen with no new complains, reports improvement Awaiting PT review for d/c disposition - Constitutional Vitals: Temp Pulse Resp BP Pulse Ox 99.0 F 88 26 112/61 92 L 07/12/16 15:36 07/12/16 15:47 07/12/16 15:36 07/12/16 15:36 07/12/16 15:36 General appearance: Present: cooperative, A&O X 3, pleasant, no acute distress, answers questions appropriately - Head Head exam: Present: atraumatic, normocephalic - Eye Eye exam: Present: PERRL, conjuntiva pink, sclera anicteric Pupils: Present: PERRL - Neck Neck exam general surgery: Present: supple, trachea midline. Absent: lymphadenopathy - Respiratory Respiratory exam: Present: CTAB. Absent: accessory muscle use, rales, rhonchi, wheezes - Cardiovascular Cardiovascular exam: Present: RRR, +S1, +S2. Absent: diastolic murmur, gallop, rubs, systolic murmur - GI/Abdominal GI/Abdominal exam: Present: normal bowel sounds, soft, no peritoneal signs. Absent: distended, tenderness - Extremities Exam Extremities exam: Present: warm, radial pulses palpable and symetrical. Absent : calf tenderness, cyanotic, pedal edema - Neurological Exam Neurological exam: Present: CN II-XII intact, oriented X3, no focal deficits. Absent: pronater drift, facial droop, speech deficit - Skin Skin exam: Present: dry, intact Internal Medicine: Result - Labs CBC & Chem 7: 07/12/16 05:13 07/12/16 05:13 Labs: Short CBC 07/12/16 Range/Units 05:13 WBC 15.8 H (4.3-11.1) K/mcL Hgb 11.1 L (11.5-15.4) g/dL Hct 33.8 L (35.3-44.9) % Plt Count 104 L (140-400) K/mcL Neutrophils # 11.1 H (1.6-8.9) K/mcL BMP 07/12/16 05:13 Sodium 139 Potassium 3.6 Chloride 109 Carbon Dioxide 21 BUN 27 H Creatinine 1.13 H Glucose 117 H Calcium 8.1 L Liver Function 07/12/16 Range/Units 05:13 Total Bilirubin 1.2 (0.2-1.2) mg/dL AST 28 (5-34) Units/L ALT 23 (0-55) Units/L Alkaline Phosphatase 149 H (38-126) Units/L Albumin 2.1 L (3.5-5.0) g/dL - ABG Interpretation ABG results: ABG ABG pH 7.21 pH Units (7.32-7.45) L 07/07/16 15:45 ABG pCO2 43 mmHg (35-45) 07/07/16 15:45 ABG pO2 93 mmHg (85-104) 07/07/16 15:45 ABG O2 Saturation 95 % (95-98) 07/07/16 15:45 PT/INR, D-dimer PT 12.1 Seconds (9.4-12.1) 07/09/16 02:55 D-Dimer [id number] ng/mLFEU (0-500) H 07/08/16 16:30 - VTE Documentation of Mechanical Device: Intermittent pneumatic compression device Consult Discharge Plan - Plan Referrals: Linda Reyes CNP [Primary Care Provider] - 07/19/16 9:45 am ()
[2016-07-12] MEDS ORDERED: Piperacillin/Tazobactam 3.375 GM in D5% in Water (Mini-Bag+) 100 ML IVPB SCH (20:00)
[2016-07-13] MEDS: Multivit/Ca/Min/Fe/FA 1 TAB TABLET PO SCH (09:00)
[2016-07-13] MEDS: levoFLOXacin 750 MG TABLET PO SCH (09:00)
[2016-07-13] MEDS: amLODIPine 5 MG TABLET PO SCH (09:00)
--- NOTE | 2016-07-13 18:57 | Internal Med Progress Note ---
Date of Encounter: 07/13/16 Time of Encounter: 18:55 - Assessment and plan (1) Abdominal pain Current Visit: Yes Status: Acute Qualifiers: Abdominal location: generalized Qualified Code(s): R10.84 - Generalized abdominal pain (2) Gram-negative bacteremia Current Visit: Yes Status: Acute Assessment and plan: Partial time to show gram-negative bacteremia continue levofloxacin recheck should blood culture (3) UTI (urinary tract infection) Current Visit: Yes Status: Acute Assessment and plan: Culture was positive for Escherichia coli continue levofloxacin Qualifiers: Urinary tract infection type: site unspecified Hematuria presence: with hematuria Qualified Code(s): N39.0 - Urinary tract infection, site not specified; R31.9 - Hematuria, unspecified (4) Atelectasis Current Visit: Yes Status: Acute Assessment and plan: Will add DuoNeb aerosol treatment, counseling: Deep wheezing (5) Volume overload Current Visit: Yes Status: Acute Assessment and plan: Add 1 dose of Lasix check BNP Qualifiers: Hypervolemia type: unspecified Qualified Code(s): E87.70 - Fluid overload, unspecified - Subjective Interval history: Patient is feeling much better, had loose bowel movements last night. No dysuria. Patient denies any fever or chills - Constitutional Vitals: Temp Pulse Resp BP Pulse Ox 98.5 F 89 20 126/73 91 L 07/13/16 15:56 07/13/16 15:56 07/13/16 15:56 07/13/16 15:56 07/13/16 15:56 General appearance: Present: cooperative, A&O X 3, pleasant, no acute distress, answers questions appropriately - Head Head exam: Present: atraumatic, normocephalic - Eye Eye exam: Present: conjuntiva pink, sclera anicteric - Neck Neck exam general surgery: Present: supple, trachea midline. Absent: lymphadenopathy - Respiratory Respiratory exam: Present: decreased breath sounds (Marked diminished breathing sounds bilaterally almost absent breathing sounds on bilateral lung bases). Absent: accessory muscle use, rales, rhonchi, wheezes - Cardiovascular Cardiovascular exam: Present: RRR, +S1, +S2. Absent: diastolic murmur, gallop, rubs, systolic murmur - GI/Abdominal GI/Abdominal exam: Present: normal bowel sounds, soft, no peritoneal signs. Absent: distended, tenderness - Extremities Exam Extremities exam: Present: warm, radial pulses palpable and symetrical. Absent : calf tenderness, cyanotic, pedal edema - Neurological Exam Neurological exam: Present: CN II-XII intact, no focal deficits. Absent: pronater drift, facial droop, speech deficit - Skin Skin exam: Present: dry, intact Internal Medicine: Result - Labs CBC & Chem 7: 07/12/16 05:13 07/12/16 05:13 - ABG Interpretation ABG results: ABG ABG pH 7.21 pH Units (7.32-7.45) L 07/07/16 15:45 ABG pCO2 43 mmHg (35-45) 07/07/16 15:45 ABG pO2 93 mmHg (85-104) 07/07/16 15:45 ABG O2 Saturation 95 % (95-98) 07/07/16 15:45 PT/INR, D-dimer PT 12.1 Seconds (9.4-12.1) 07/09/16 02:55 D-Dimer 93848 ng/mLFEU (0-500) H 07/08/16 16:30 - Impressions Intake & Output 07/10/16 07/11/16 07/12/16 07/13/16 23:59 23:59 23:59 23:59 Intake Total 940 / 940 760 / 760 910 / 910 360 / 360 Output Total 1700 / 1700 Balance -760 / -760 759 / 759 910 / 910 360 / 360 Weight 102 kg 102.5 kg 100.1 kg 100 kg Abnormal lab results WBC 15.8 K/mcL (4.3-11.1) H 07/12/16 05:13 RBC 3.79 M/mcL (3.82-4.97) L 07/12/16 05:13 Hgb 11.1 g/dL (11.5-15.4) L 07/12/16 05:13 Hct 33.8 % (35.3-44.9) L 07/12/16 05:13 RDW 14.7 % (11.5-14.5) H 07/12/16 05:13 Plt Count 104 K/mcL (140-400) L 07/12/16 05:13 MPV 12.6 fL (9.4-12.4) H 07/12/16 05:13 Band Neutrophils % 14.0 % (0-4) H 07/12/16 05:13 Metamyelocytes % 6.0 % (0) H 07/12/16 05:13 Neutrophils # 11.1 K/mcL (1.6-8.9) H 07/12/16 05:13 Nucleated RBCs/100 WBC 0.1 /100 WBC (0) H 07/09/16 02:55 Reactive Lymphocytes Present (Not Present) A 07/11/16 04:35 Toxic Granulation Present (Not Present) A 07/08/16 05:05 Toxic Vacuolation Present (Not Present) A 07/08/16 05:05 Platelet Estimate Decreased (Normal) L 07/12/16 05:13 Large Platelets Present (Not Present) A 07/11/16 04:35 Immature Plt Fraction 10.8 % (1.1-6.1) H 07/11/16 04:35 Fibrinogen 871 mg/dL (169-393) H* D 07/08/16 16:30 D-Dimer 37237 ng/mLFEU (0-500) H 07/08/16 16:30 ABG pH 7.21 pH Units (7.32-7.45) L 07/07/16 15:45 ABG HCO3 17.2 mEQ/L (21-27) L 07/07/16 15:45 ABG Total CO2 18.5 mEq/L (20-26) L 07/07/16 15:45 ABG Base Excess -10.3 mEq/L (-2.0 to 3.0) L 07/07/16 15:45 BUN 27 mg/dL (7-20) H 07/12/16 05:13 Creatinine 1.13 mg/dL (0.57-1.11) H 07/12/16 05:13 Est GFR ( Amer) 58 (> 60) L 07/12/16 05:13 Est GFR (Non-Af Amer) 48 (> 60) L 07/12/16 05:13 Glucose 117 mg/dL (70-99) H 07/12/16 05:13 POC Glucose 134 (58-89) H 07/07/16 16:09 Calcium 8.1 mg/dL (8.6-10.8) L 07/12/16 05:13 Alkaline Phosphatase 149 Units/L (38-126) H 07/12/16 05:13 B-Natriuretic Peptide 742 pg/mL (0-100) H 07/07/16 16:11 Albumin 2.1 g/dL (3.5-5.0) L 07/12/16 05:13 Globulin 4.0 g/dL (2.4-3.5) H 07/12/16 05:13 Albumin/Globulin Ratio 0.5 (1.1-2.2) L 07/12/16 05:13 Urine Clarity Cloudy (Clear) A 07/07/16 04:57 Urine Protein 30 mg/dL (Neg-Trace) H 07/07/16 04:57 Urine Blood Large (Negative) H 07/07/16 04:57 Ur Leukocyte Esterase Moderate (Negative) H 07/07/16 04:57 Urine Microscopic RBC 5-15 per hpf (0-3) H 07/07/16 04:57 Urine Microscopic WBC 30-50 per hpf (0-3) H 07/07/16 04:57 Ur Squamous Epith Cells Many per lpf (None-Few) H 07/07/16 04:57 Urine Bacteria Many per hpf (None-Few) H 07/07/16 04:57 Ur Culture Indicated? YES (NO) A 07/07/16 04:57 Enterobacteriac sp PCR DETECTED (Not Detect) A 07/07/16 06:51 E. coli (PCR) DETECTED (Not Detect) A 07/07/16 06:51 - VTE Documentation of Mechanical Device: Intermittent pneumatic compression device Consult Discharge Plan - Plan Referrals: Linda Reyes CNP [Primary Care Provider] - 07/19/16 9:45 am ()
[2016-07-13] MEDS ORDERED: Furosemide 20 MG/2 ML VIAL IVP ONE (19:04)
[2016-07-13] MEDS ORDERED: Furosemide 20 MG TABLET PO ONE (20:32)
[2016-07-13] MEDS: Ipratropium/Albuterol Neb 3 ML IH PRN (22:41)
[2016-07-14 04:18] LABS: BUN/Creatinine Ratio 26 (6-26); Blood Urea Nitrogen 25 mg/dL (7-20); Calcium 8.3 mg/dL (8.6-10.8); Carbon Dioxide 23 mEq/L (19-29); Chloride 109 mEq/L (98-109); Glucose 101 mg/dL (70-99); Magnesium 2.4 mg/dL (1.6-2.6); Osmolality,Calculated 295 (280-300); Phosphorous 3.9 mg/dL (2.3-4.7); Sodium 140 mEq/L (136-145); eGFR For African Americans > 60 (> 60); eGFR For Non-African Americans 56 (> 60)
[2016-07-14 05:16] LABS: Basophils % 0.2 %; Eosinophils # 0.1 K/mcL (0.0-0.6); Eosinophils % 0.3 %; Hematocrit 29.2 % (35.3-44.9); Hemoglobin 9.4 g/dL (11.5-15.4); Immature Granulocytes % 3.5 % (0-4); Immature Platelets 10.7 % (1.1-6.1); Lymphocytes # 1.5 K/mcL (0.6-4.6); Lymphocytes % 8.7 %; Mean Corpuscular HGB Conc 32.2 g/dL (31.6-35.5); Mean Corpuscular Hemoglobin 28.8 pg (28.0-33.3); Mean Corpuscular Volume 89.6 fL (83.0-100.0); Mean Platelet Volume 11.9 fL (9.4-12.4); Monocytes % 5.6 %; Neutrophils # 14.5 K/mcL (1.6-8.9); Red Blood Count 3.26 M/mcL (3.82-4.97); Red Cell Distribution Width 14.7 % (11.5-14.5); Segmented Neutrophils % 81.7 %
[2016-07-14 05:23] LABS: Platelet Count 207 K/mcL (140-400)
[2016-07-14 05:49] LABS: Platelet Estimate Normal (Normal)
[2016-07-14] MEDS: levoFLOXacin 750 MG TABLET PO SCH (08:03)
[2016-07-14] MEDS: amLODIPine 5 MG TABLET PO SCH (08:03)
[2016-07-14] MEDS: Multivit/Ca/Min/Fe/FA 1 TAB TABLET PO SCH (08:04)
[2016-07-14 11:15] VITALS: BP 116/69
--- NOTE | 2016-07-14 14:55 | Discharge Summary ---
Date of Encounter: 07/15/16 Time of Encounter: 14:51 - Discharge Diagnosis (1) Abdominal pain Priority: Secondary Status: Acute Qualifiers: Abdominal location: generalized Qualified Code(s): R10.84 - Generalized abdominal pain (2) Gram-negative bacteremia Priority: Primary Status: Acute (3) UTI (urinary tract infection) Priority: Primary Status: Acute Qualifiers: Urinary tract infection type: site unspecified Hematuria presence: with hematuria Qualified Code(s): N39.0 - Urinary tract infection, site not specified; R31.9 - Hematuria, unspecified (4) Atelectasis Priority: Secondary Status: Acute (5) Volume overload Priority: Secondary Status: Acute Qualifiers: Hypervolemia type: unspecified Qualified Code(s): E87.70 - Fluid overload, unspecified (6) Sepsis Priority: Primary Status: Acute Qualifiers: Sepsis type: Escherichia coli Qualified Code(s): A41.51 - Sepsis due to Escherichia coli [E. coli] - Discharge Medications Prescriptions: Acetaminophen [Tylenol] 650 mg PO Q6HR PRN #60 tablet PRN Reason: Mild Pain (1-3) Amlodipine [Norvasc] 10 mg PO DAILY #30 tablet Cyanocobalamin (B-12) [Vitamin B12] 1,000 mcg PO DAILY #90 tablet Ergocalciferol (VITAMIN D2) [Drisdol (50,000 Unit)] 50,000 unit PO QWEEK #15 capsule Ipratropium/Albuterol Neb [Duoneb] 3 ml IH TID #90 inhsol Lactobacillus [Culturelle] 1 each PO BID #60 cap.sprink Levofloxacin 750 mg PO DAILY #11 tablet Metoprolol [Lopressor] 50 mg PO BID #60 tablet Thiamine HCl 250 mg PO DAILY #90 tablet Home Medications: Atorvastatin Calcium [Lipitor] 20 mg PO DAILY 07/07/16 [History] Lisinopril [Zestril] 20 mg PO DAILY 07/07/16 [History] Pantoprazole Sodium [Protonix] 20 mg PO DAILY 07/07/16 [History] Acetaminophen [Tylenol] 650 mg PO Q6HR PRN #60 tablet 07/14/16 [Rx] Amlodipine [Norvasc] 10 mg PO DAILY #30 tablet 07/14/16 [Rx] Cyanocobalamin (B-12) [Vitamin B12] 1,000 mcg PO DAILY #90 tablet 07/14/16 [Rx] Ergocalciferol (VITAMIN D2) [Drisdol (50,000 Unit)] 50,000 unit PO QWEEK #15 capsule 07/14/16 [Rx] Ipratropium/Albuterol Neb [Duoneb] 3 ml IH TID #90 inhsol 07/14/16 [Rx] Lactobacillus [Culturelle] 1 each PO BID #60 cap.sprink 07/14/16 [Rx] Levofloxacin 750 mg PO DAILY #11 tablet 07/14/16 [Rx] Metoprolol [Lopressor] 50 mg PO BID #60 tablet 07/14/16 [Rx] Thiamine HCl 250 mg PO DAILY #90 tablet 07/14/16 [Rx] Allergies/Adverse Reactions: Allergies No Known Allergies Allergy (Verified 07/06/16 23:04) Procedures/tests Complete & Pending: Intake & Output 07/11/16 07/12/16 07/13/16 07/14/16 23:59 23:59 23:59 23:59 Intake Total 760 / 760 910 / 910 360 / 360 480 / 480 Output Total 0 / 0 Balance 759 / 759 910 / 910 360 / 360 480 / 480 Weight 102.5 kg 100.1 kg 100 kg 96.162 kg Date of admission: 07/07/16 11:13 Primary care physician: Linda Reyes CNP Consults: 07/13/16 14:04 Consult to Medical Anthropology Director [CONS] Routine Reason for SW Consult: possible rehab after D/C 07/10/16 16:54 Consult to Occupational Therapy [CONS] Routine Comment: Evaluate, develop and implement POC Consult to Physical Therapy [CONS] Routine Comment: Evaluate, develop and implement POC - Patient Status Disposition: Transfer SNF Condition: Fair Overall status at discharge: patient is progressing back to baseline - Discharge Instructions Follow Up With: Linda Reyes CNP [Primary Care Provider] - 07/19/16 9:45 am () - Diet and Activity Activity: ambulate only with your walker Diet: low fat, low cholesterol, low salt diet Hospital course: Ms. Zamorano is a 66 year old female with PMH of HtN and GERD .She was admitted 07/07 for management of severe sepsis with lactic acidosis secondary to gram negative bacteremia and pylonephritis, thrombocytopenia , MORRIS, and gastroenteritis . Patient received empiric antibiotic and aggressive hydration for her sepsis and acute kidney injury . Patient developed hypoxemia secondary to pneumonia and pulmonary edema secondary to volume overload. Patient was started on gentle diuretic. Cardiac echo showed ejection fraction was 55% Blood cultures 2 show Escherichia coli as well as urine culture was positive for Escherichia coli, culture with a few antibiotic was tapered down to Levaquin. Continue to monitor patient during hospitalization ,Her condition has been getting better. Patient continued to have generalized weakness. 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 Physical therapy and occupational therapy was following the patient along with hospitalist team. Recommendation for rehabilitation. The patient was accepted for rehabilitation. Patient discharged to rehabilitation in stable condition. Counseling patient about deep breathing. Counseling about nutrition. Plan discussed with patient and family at bedside - Time Spent with Patient Total time spent providing and/or coordinating discharge services: - Constitutional Vitals: Temp Pulse Resp BP Pulse Ox 97.8 F 73 16 116/69 94 L 07/14/16 11:10 07/14/16 11:10 07/14/16 11:10 07/14/16 11:10 07/14/16 11:10 General appearance: Present: cooperative, A&O X 3, pleasant, no acute distress, answers questions appropriately - VTE Documentation of Mechanical Device: Intermittent pneumatic compression device
--- NOTE | 2016-07-14 15:13 | Physician Discharge Referral ---
ExtendedCare Referral Info Institutional Level of Care: Skilled - Diagnosis (1) Abdominal pain Priority: Secondary Status: Acute (2) Gram-negative bacteremia Priority: Primary Status: Acute (3) UTI (urinary tract infection) Priority: Primary Status: Acute (4) Atelectasis Priority: Secondary Status: Acute (5) Volume overload Priority: Secondary Status: Acute - Transfer Medications Prescriptions: Acetaminophen [Tylenol] 650 mg PO Q6HR PRN #60 tablet PRN Reason: Mild Pain (1-3) Amlodipine [Norvasc] 10 mg PO DAILY #30 tablet Cyanocobalamin (B-12) [Vitamin B12] 1,000 mcg PO DAILY #90 tablet Ergocalciferol (VITAMIN D2) [Drisdol (50,000 Unit)] 50,000 unit PO QWEEK #15 capsule Ipratropium/Albuterol Neb [Duoneb] 3 ml IH TID #90 inhsol Lactobacillus [Culturelle] 1 each PO BID #60 cap.sprink Levofloxacin 750 mg PO DAILY #11 tablet Metoprolol [Lopressor] 50 mg PO BID #60 tablet Thiamine HCl 250 mg PO DAILY #90 tablet Home Medications: Atorvastatin Calcium [Lipitor] 20 mg PO DAILY 07/07/16 [History] Lisinopril [Zestril] 20 mg PO DAILY 07/07/16 [History] Pantoprazole Sodium [Protonix] 20 mg PO DAILY 07/07/16 [History] Acetaminophen [Tylenol] 650 mg PO Q6HR PRN #60 tablet 07/14/16 [Rx] Amlodipine [Norvasc] 10 mg PO DAILY #30 tablet 07/14/16 [Rx] Cyanocobalamin (B-12) [Vitamin B12] 1,000 mcg PO DAILY #90 tablet 07/14/16 [Rx] Ergocalciferol (VITAMIN D2) [Drisdol (50,000 Unit)] 50,000 unit PO QWEEK #15 capsule 07/14/16 [Rx] Ipratropium/Albuterol Neb [Duoneb] 3 ml IH TID #90 inhsol 07/14/16 [Rx] Lactobacillus [Culturelle] 1 each PO BID #60 cap.sprink 07/14/16 [Rx] Levofloxacin 750 mg PO DAILY #11 tablet 07/14/16 [Rx] Metoprolol [Lopressor] 50 mg PO BID #60 tablet 07/14/16 [Rx] Thiamine HCl 250 mg PO DAILY #90 tablet 07/14/16 [Rx] Allergies/Adverse Reactions: Allergies No Known Allergies Allergy (Verified 07/06/16 23:04) - Respiratory Orders Smoking Cessation: Smoking cessation has been advised. For more information, call the [place] Tobacco Quit Line at 0-407-BRBV-NOW. - Ancillary Orders May use pressure relief devices daily prn - History and Physical History/Physical reviewed & approved w/add comments: yes CERTIFICATION: I certify that the transfer of the above named patient to an Extended Care Facility is necessary for the continuing treatment of the diagnosis listed. The above information is true and accurate reflection of patient's current condition. Confidential - Redisclosure prohibited without a patient's written consent.
== END 2016-07-14 18:25 | DRG 871 ==
LOC: EMEROO 22:57 → 2NNU 22:57 → 2ANU 07-13 18:46
PROVIDERS: ADMIT Internal Medicine; ATTEND Internal Medicine

== ENCOUNTER 2017-06-28 13:53 | Inpatient (IN) ==
--- NOTE | 2017-06-28 14:17 | Emergency Department Note ---
Disposition Clinical Impression: Elevated troponin, MORRIS (acute kidney injury) Vomiting Qualifiers: Vomiting type: unspecified Vomiting Intractability: unspecified Nausea presence : with nausea Qualified Code(s): R11.2 - Nausea with vomiting, unspecified Disposition: Admitted As Inpatient Condition: Fair Referrals: Linda Reyes CNP [Primary Care Provider] - Forms: ED Satisfaction Letter Time of Disposition: 16:19 Nausea/Vomiting/Diarrhea HPI - General Chief complaint: ED Nausea/Vomiting/Diarrhea Stated complaint: nausea/vomiting Time Seen by Provider: 06/28/17 13:59 Source: EMS Mode of arrival: ambulatory Limitations: no limitations Nursing Notes Reviewed: Yes Vital Signs Reviewed: Yes - History of Present Illness HPI Narrative: 67-year-old female with history of hypertension, hyperlipidemia presents for evaluation of nausea vomiting and weakness in the past 24 hours. Symptom onset started with nausea vomiting last night around 1800. Patient denies any abdominal pain. Patient states that she has had decreased appetite since then. She has been able tolerate some liquids. Patient denies any chest pain. Patient denies any short of breath. No cough. Patient states that she feels generally weak. No history of any recent admissions. Patient does have a history of hospital admissions for pneumonia. Denies a history of heart disease. Patient denies any diarrhea or constipation. - Related Data Home Medications Medication Instructions Recorded Confirmed Atorvastatin Calcium [Lipitor] 20 mg PO DAILY 07/07/16 06/28/17 Lisinopril [Zestril] 20 mg PO DAILY 07/07/16 06/28/17 Cholecalciferol (D-3) [Vitamin D] 2,000 unit PO DAILY 08/31/16 06/28/17 Ranitidine HCl [Heartburn Relief] 150 mg PO DAILY 06/28/17 06/28/17 Previous Rx's Medication Instructions Recorded Cyanocobalamin (B-12) [Vitamin B12] 1,000 mcg PO DAILY #90 tablet 07/14/16 Allergies Allergy/AdvReac Type Severity Reaction Status Date / Time No Known Allergies Allergy Verified 08/31/16 10:57 All systems ED: reviewed and negative except as stated. Constitutional: Reports: as per HPI. Denies: fever Eyes: Reports: as per HPI ENT ED: Reports: as per HPI Cardiovascular: Reports: as per HPI. Denies: chest pain Respiratory: Reports: as per HPI. Denies: cough, dyspnea Gastrointestinal: Reports: as per HPI, nausea, vomiting. Denies: abdominal pain Genitourinary: Reports: as per HPI Musculoskeletal: Reports: as per HPI Integumentary: Reports: as per HPI Neurological: Reports: as per HPI, weakness Psychiatric: Reports: as per HPI Endocrine: Reports: as per HPI Hematological/Lymphatic: Reports: as per HPI Allergic/Immunologic: Reports: as per HPI Past Medical History - Past Medical History Medical history: Reports: hypertension Surgical history: Reports: hysterectomy, orthopedic, other Psychiatric history: Reports: no psych history - Social History Smoking Status: Never smoker Smokeless Tobacco Status: No Alcohol use: Reports: none Drug use: Reports: none Physical Exam - General Limitations: no limitations General appearance: alert, in no apparent distress - Head Head exam: atraumatic, normocephalic, normal inspection - Eye Eye exam: Present: normal appearance, PERRL, EOMI. Absent: scleral icterus - ENT ENT exam: normal exam, mucous membranes dry - Neck Neck exam: Present: normal inspection - Respiratory Respiratory exam: Present: other (Diminished bibasilar). Absent: respiratory distress, accessory muscle use - Cardiovascular Cardiovascular exam: Present: regular rate, tachycardia - Abdominal Exam Abdominal exam: Present: soft, Non-Tender. Absent: tenderness, guarding, rebound - Extremities Exam Extremities exam: Present: normal inspection. Absent: pedal edema - Neurological Exam Neurological exam: Present: alert, oriented X3, CN II-XII intact - Skin Skin exam: Present: warm, dry, intact, normal color Course Course Narrative: Patient seen and examined upon arrival. Patient is requiring 2 L nasal cannula. Patient is borderline tachycardic. Patient will get electrolyte evaluation as well as cardiopulmonary screening with chest x-ray, EKG and troponin. Concerns of infectious versus cardiopulmonary etiology. - Reevaluation(s) Reevaluation #1: Patient's resting comfortably. Patient's troponin did come back elevated. Patient was given aspirin. Patient is not complaining of any chest pain. Time: 15:24 Reevaluation #2: Patient does present with signs of shock WITH elevated troponin and MORRIS. Patient does have MORRIS likely prerenal. Patient is fluid responsive. Patient was started on antibiotics broad-spectrum. There is no specific source. Patient will get a scan of her chest abdomen pelvis. Time: 16:06 Reevaluation #3: Patient's heart rate and blood pressure responding to fluids. Patient had a bedside ultrasound of the gallbladder which does show a cholelithiasis. Patient will get imaging of her chest abdomen pelvis. Time: 16:19 Vital Signs Temperature 99.1 F 06/28/17 13:56 Pulse Rate 104 06/28/17 13:56 Respiratory Rate 20 06/28/17 13:56 Blood Pressure 103/65 06/28/17 13:56 O2 Sat by Pulse Oximetry 88 06/28/17 13:56 Temperature 99.1 F 06/28/17 13:56 Pulse Rate 104 06/28/17 13:56 Respiratory Rate 20 06/28/17 13:56 Blood Pressure 103/65 06/28/17 13:56 O2 Sat by Pulse Oximetry 88 06/28/17 13:56 Oxygen Delivery Oxygen Delivery Room Air Nausea/Vomiting/Diarrhea - Medical Records Medical records reviewed: Yes I reviewed the patient's medical records. - Lab Data Result diagrams: 06/28/17 14:30 06/28/17 14:30 Lab Results 06/28/17 06/28/17 06/28/17 Range/Units 14:30 14:30 14:30 WBC 28.5 H (4.3-11.1) K/mcL RBC 4.10 (3.82-4.97) M/mcL Hgb 12.0 (11.5-15.4) g/dL Hct 36.0 (35.3-44.9) % MCV 87.8 (83.0-100.0) fL MCH 29.3 (28.0-33.3) pg MCHC 33.3 (31.6-35.5) g/dL RDW 14.2 (11.5-14.5) % Plt Count 115 L (140-400) K/mcL MPV 10.8 (9.4-12.4) fL Seg Neutrophils % 50.0 % Band Neutrophils % 30.0 H (0-4) % Lymphocytes % 2.0 % Monocytes % 4.0 % Metamyelocytes % 10.0 H (0) % Myelocytes % 4.0 H (0) % Neutrophils # 22.8 H (1.6-8.9) K/mcL Lymphocytes # 0.6 (0.6-4.6) K/mcL Monocytes # 1.1 (0.0-1.3) K/mcL Nucleated RBCs/100 WBC 0.2 H (0) /100 WBC Toxic Vacuolation Present A (Not Present) Platelet Estimate Decreased L (Normal) Sodium 138 (136-145) mEq/L Potassium 3.4 L (3.5-5.1) mEq/L Chloride 104 (98-107) mEq/L Carbon Dioxide 17 L (23-29) mEq/L BUN 30 H (8-23) mg/dL Creatinine 2.32 H (0.60-1.20) mg/dL Est GFR ( Amer) 25 L (> 60) Est GFR (Non-Af Amer) 21 L (> 60) BUN/Creatinine Ratio 13 (6-26) Glucose 185 H (70-105) mg/dL Calculated Osmolality 297 (280-300) Calcium 8.3 L (8.6-10.3) mg/dL Total Bilirubin 1.9 H (0.3-1.0) mg/dL AST 36 (13-39) Units/L ALT 28 (7-52) Units/L Alkaline Phosphatase 121 H (34-104) Units/L Troponin I 0.05 H* (< 0.04) ng/mL Serum Total Protein 6.4 (6.4-8.9) g/dL Albumin 3.5 (3.5-5.7) g/dL Globulin 2.9 (2.4-3.5) g/dL Albumin/Globulin Ratio 1.2 (1.1-2.2) - EKG Data EKG attestation: Yes I reviewed and interpreted this EKG. EKG shows normal: sinus rhythm Rate: tachycardia Rhythm: NSR [place]on[place]/QRS: left axis deviation P waves: other (Biphasic in V1) When compared to previous EKG there are: no significant changes (tachycardia) Interpretation: unchanged when compared to prior tracing (date) Attestation Statement - Attestation Attestation: I examined this patient and my medical decision-making was reviewed with the Resident Physician. I agree with the documented findings, disposition and treatment plan as described except to the extent set forth below. Patient to the ED not feeling well. Vomiting. Started last night. Fever. Patient uncomfortable on examination. She has a soft, nontender abdomen. Joint mucous membranes. Lungs diminished but clear. Plan. The patient's labs show an elevated white blood cell count. Elevated creatinine. She needs septic shock criteria. Chest x-ray did not show the pneumonia as expected. Will check CT chest abdomen pelvis looking for source. Sepsis Reassessment Note - Evaluation Current Stage of Sepsis: septic shock Possible Source of Sepsis: unknown - Focused Exam Date of Encounter: 06/28/17 Time of Encounter: 16:22 Vital Signs: Vital Signs Temp Pulse Resp BP Pulse Ox 06/28/17 13:56 99.1 F 104 20 103/65 88 Respiratory Exam: Absent: respiratory distress, crackles Cardiovascular Exam: Present: tachycardia Capillary Refill: < 2 seconds Peripheral Pulse Strength: 2+ slightly diminished Peripheral Pulse Location: Radial Skin Exam: normal turgor
[2017-06-28] MEDS ORDERED: Ondansetron 4 MG/2 ML VIAL IVP ONE (14:22)
[2017-06-28] MEDS ORDERED: 0.9 % Sodium Chloride 1,000 ML IVC ONE ×3 (14:22→16:23)
[2017-06-28 15:00] LABS: Red Cell Distribution Width 14.2 % (11.5-14.5)
[2017-06-28 15:01] LABS: Lymphocytes # 0.6 K/mcL (0.6-4.6); Mean Corpuscular HGB Conc 33.3 g/dL (31.6-35.5); Mean Corpuscular Hemoglobin 29.3 pg (28.0-33.3); Mean Corpuscular Volume 87.8 fL (83.0-100.0); Mean Platelet Volume 10.8 fL (9.4-12.4); Nucleated Red Blood Cells 0.2 /100 WBC (0); Platelet Count 115 K/mcL (140-400)
[2017-06-28 15:11] LABS: Albumin 3.5 g/dL (3.5-5.7); Albumin/Globulin Ratio 1.2 (1.1-2.2); Bilirubin,Total 1.9 mg/dL (0.3-1.0); Calcium 8.3 mg/dL (8.6-10.3); Globulin 2.9 g/dL (2.4-3.5); Potassium 3.4 mEq/L (3.5-5.1); Total Protein 6.4 g/dL (6.4-8.9)
[2017-06-28] MEDS ORDERED: Aspirin 81 MG TAB.CHEW PO ONE (15:23)
[2017-06-28 15:27] LABS: Monocytes # 1.1 K/mcL (0.0-1.3); Neutrophils # 22.8 K/mcL (1.6-8.9)
[2017-06-28 15:29] LABS: Platelet Estimate Decreased (Normal); Toxic Vacuolation Present (Not Present)
[2017-06-28] MEDS ORDERED: Piperacillin/Tazobactam 3.375 GM in Water for inj. (sterile) 20 ML IVP ONE (15:36)
[2017-06-28] MEDS ORDERED: Vancomycin 1,500 MG in D5% in Water 250 ML IVPB ONE (15:37)
--- NOTE | 2017-06-28 17:48 | Emergency Department Note ---
Disposition Clinical Impression: Elevated troponin, MORRIS (acute kidney injury) Vomiting Qualifiers: Vomiting type: unspecified Vomiting Intractability: unspecified Nausea presence : with nausea Qualified Code(s): R11.2 - Nausea with vomiting, unspecified Cholelithiasis Qualifiers: Cholelithiasis location: other site Biliary obstruction: without biliary obstruction Qualified Code(s): K80.80 - Other cholelithiasis without obstruction Urolithiasis Qualifiers: Urinary calculus location: other lower urinary tract location Qualified Code(s) : N21.8 - Other lower urinary tract calculus Sepsis Qualifiers: Sepsis type: sepsis due to unspecified organism Qualified Code(s): A41.9 - Sepsis, unspecified organism Disposition: Admitted As Inpatient Condition: Fair General Adult HPI - General Chief complaint: ED Nausea/Vomiting/Diarrhea Stated complaint: nausea/vomiting Time Seen by Provider: 06/28/17 13:59 Source: EMS Mode of arrival: ambulatory Limitations: no limitations - History of Present Illness HPI Narrative: This is a continuation of prior documentation. Pain Scale: 0 - Related Data Home Medications Medication Instructions Recorded Confirmed Atorvastatin Calcium [Lipitor] 20 mg PO DAILY 07/07/16 06/28/17 Lisinopril [Zestril] 20 mg PO DAILY 07/07/16 06/28/17 Cholecalciferol (D-3) [Vitamin D] 2,000 unit PO DAILY 08/31/16 06/28/17 Ranitidine HCl [Heartburn Relief] 150 mg PO DAILY 06/28/17 06/28/17 Previous Rx's Medication Instructions Recorded Cyanocobalamin (B-12) [Vitamin B12] 1,000 mcg PO DAILY #90 tablet 07/14/16 Allergies Allergy/AdvReac Type Severity Reaction Status Date / Time No Known Allergies Allergy Verified 08/31/16 10:57 Constitutional: Reports: as per HPI. Denies: fever Eyes: Reports: as per HPI ENT ED: Reports: as per HPI Cardiovascular: Reports: as per HPI. Denies: chest pain Respiratory: Reports: as per HPI. Denies: cough, dyspnea Gastrointestinal: Reports: as per HPI, nausea, vomiting. Denies: abdominal pain Genitourinary: Reports: as per HPI Musculoskeletal: Reports: as per HPI Integumentary: Reports: as per HPI Neurological: Reports: as per HPI, weakness Psychiatric: Reports: as per HPI Endocrine: Reports: as per HPI Hematological/Lymphatic: Reports: as per HPI Allergic/Immunologic: Reports: as per HPI Past Medical History - Past Medical History Medical history: Reports: hypertension Surgical history: Reports: hysterectomy, orthopedic, other Psychiatric history: Reports: no psych history - Social History Smoking Status: Never smoker Smokeless Tobacco Status: No Alcohol use: Reports: none Drug use: Reports: none Physical Exam - General Limitations: no limitations General appearance: alert, in no apparent distress Course - Reevaluation(s) Reevaluation #1: Plan of care was discussed with the patient was family at bedside. Patient's blood pressure is responding to IV fluids. Patient denies any needs at this time. Time: 18:29 Reevaluation #2: Spoke with hospitalist and made aware of the infected urine with stone. Time: 20:28 - Consultations Consultation #1: Spoke with urology regarding the stone and UTI. Time: 20:27 Vital Signs Temperature 99.1 F 06/28/17 13:56 Pulse Rate 104 06/28/17 13:56 Respiratory Rate 20 06/28/17 13:56 Blood Pressure 103/65 06/28/17 13:56 O2 Sat by Pulse Oximetry 88 06/28/17 13:56 Temperature 99.1 F 06/28/17 13:56 Pulse Rate 94 06/28/17 18:34 Respiratory Rate 24 06/28/17 18:34 Blood Pressure 99/63 06/28/17 18:34 O2 Sat by Pulse Oximetry 92 06/28/17 18:34 Oxygen Delivery Oxygen Delivery Nasal Cannula Medical Decision Making - [facility] Narrative Medical decision making narrative: Patient's CT abdomen and pelvis and chest shows urolithiasis as well as bibasilar pneumonia. Patient was started on antibiotics prior to this CAT scan. Patient's pressures responding to fluids. On repeat evaluation the patient appears to be well perfused with brisk cap refill. Patient has a repeat lactate which is pending. The patient also has cholelithiasis without secondary signs of cholecystitis. Also noted on exam is urolithiasis. Patient does meet sepsis criteria. Patient does have sepsis with evidence of end organ dysfunction with elevated lactate, kidney function as well as troponin. Patient was given the 30 mL/kg IV fluid hydration. Patient was also started on appropriate antibiotics likely covering the most likely organisms. Patient also has UTI with a stone with mild hydronephrosis. This was discussed with the urologist condenser setter. Instructions were that if the patient spiked a fever he would need to be notified. This information was also relayed to the hospitalist. Patient will be admitted to hospitalist service. - Medical Records Medical records reviewed: Yes I reviewed the patient's medical records. - Lab Data Lab results reviewed: Yes I reviewed the patient's lab results. Result diagrams: 06/28/17 14:30 06/28/17 14:30 Lab Results 06/28/17 06/28/17 06/28/17 Range/Units 14:30 14:30 14:30 WBC 28.5 H (4.3-11.1) K/mcL RBC 4.10 (3.82-4.97) M/mcL Hgb 12.0 (11.5-15.4) g/dL Hct 36.0 (35.3-44.9) % MCV 87.8 (83.0-100.0) fL MCH 29.3 (28.0-33.3) pg MCHC 33.3 (31.6-35.5) g/dL RDW 14.2 (11.5-14.5) % Plt Count 115 L (140-400) K/mcL MPV 10.8 (9.4-12.4) fL Seg Neutrophils % 50.0 % Band Neutrophils % 30.0 H (0-4) % Lymphocytes % 2.0 % Monocytes % 4.0 % Metamyelocytes % 10.0 H (0) % Myelocytes % 4.0 H (0) % Neutrophils # 22.8 H (1.6-8.9) K/mcL Lymphocytes # 0.6 (0.6-4.6) K/mcL Monocytes # 1.1 (0.0-1.3) K/mcL Nucleated RBCs/100 WBC 0.2 H (0) /100 WBC Toxic Vacuolation Present A (Not Present) Platelet Estimate Decreased L (Normal) Sodium 138 (136-145) mEq/L Potassium 3.4 L (3.5-5.1) mEq/L Chloride 104 (98-107) mEq/L Carbon Dioxide 17 L (23-29) mEq/L BUN 30 H (8-23) mg/dL Creatinine 2.32 H (0.60-1.20) mg/dL Est GFR ( Amer) 25 L (> 60) Est GFR (Non-Af Amer) 21 L (> 60) BUN/Creatinine Ratio 13 (6-26) Glucose 185 H (70-105) mg/dL Calculated Osmolality 297 (280-300) Lactic Acid (0.5-2.2) mmol/L Calcium 8.3 L (8.6-10.3) mg/dL Total Bilirubin 1.9 H (0.3-1.0) mg/dL AST 36 (13-39) Units/L ALT 28 (7-52) Units/L Alkaline Phosphatase 121 H (34-104) Units/L Troponin I 0.05 H* (< 0.04) ng/mL Serum Total Protein 6.4 (6.4-8.9) g/dL Albumin 3.5 (3.5-5.7) g/dL Globulin 2.9 (2.4-3.5) g/dL Albumin/Globulin Ratio 1.2 (1.1-2.2) Urine Color (Yellow) Urine Clarity (Clear) Urine pH (5.0-8.0) pH Units Ur Specific [place] (1.010-1.025) Urine Protein (Neg-Trace) mg/dL Urine Glucose (UA) (Normal) mg/dL Urine Ketones (Negative) mg/dL Urine Blood (Negative) Urine Nitrite (Negative) Urine Bilirubin (Negative) Urine Urobilinogen (Normal) mg/dL Ur Leukocyte Esterase (Negative) Urine Microscopic RBC (0-3) per hpf Urine Microscopic WBC (0-3) per hpf Ur Squamous Epith Cells (None-Few) per lpf Ur Transition Epith Cell (None-Few) per hpf Urine Bacteria (None-Few) per hpf Ur Culture Indicated? (NO) 06/28/17 06/28/17 Range/Units 16:31 17:50 WBC (4.3-11.1) K/mcL RBC (3.82-4.97) M/mcL Hgb (11.5-15.4) g/dL Hct (35.3-44.9) % MCV (83.0-100.0) fL MCH (28.0-33.3) pg MCHC (31.6-35.5) g/dL RDW (11.5-14.5) % Plt Count (140-400) K/mcL MPV (9.4-12.4) fL Seg Neutrophils % % Band Neutrophils % (0-4) % Lymphocytes % % Monocytes % % Metamyelocytes % (0) % Myelocytes % (0) % Neutrophils # (1.6-8.9) K/mcL Lymphocytes # (0.6-4.6) K/mcL Monocytes # (0.0-1.3) K/mcL Nucleated RBCs/100 WBC (0) /100 WBC Toxic Vacuolation (Not Present) Platelet Estimate (Normal) Sodium (136-145) mEq/L Potassium (3.5-5.1) mEq/L Chloride (98-107) mEq/L Carbon Dioxide (23-29) mEq/L BUN (8-23) mg/dL Creatinine (0.60-1.20) mg/dL Est GFR ( Amer) (> 60) Est GFR (Non-Af Amer) (> 60) BUN/Creatinine Ratio (6-26) Glucose (70-105) mg/dL Calculated Osmolality (280-300) Lactic Acid 4.8 H* (0.5-2.2) mmol/L Calcium (8.6-10.3) mg/dL Total Bilirubin (0.3-1.0) mg/dL AST (13-39) Units/L ALT (7-52) Units/L Alkaline Phosphatase (34-104) Units/L Troponin I (< 0.04) ng/mL Serum Total Protein (6.4-8.9) g/dL Albumin (3.5-5.7) g/dL Globulin (2.4-3.5) g/dL Albumin/Globulin Ratio (1.1-2.2) Urine Color Dark Yellow (Yellow) Urine Clarity Cloudy A (Clear) Urine pH 5.0 (5.0-8.0) pH Units Ur Specific [place] 1.023 (1.010-1.025) Urine Protein 30 H (Neg-Trace) mg/dL Urine Glucose (UA) Normal (Normal) mg/dL Urine Ketones Trace H (Negative) mg/dL Urine Blood Moderate H (Negative) Urine Nitrite Positive A (Negative) Urine Bilirubin Negative (Negative) Urine Urobilinogen Normal (Normal) mg/dL Ur Leukocyte Esterase Moderate H (Negative) Urine Microscopic RBC 3-5 H (0-3) per hpf Urine Microscopic WBC 50-100 H (0-3) per hpf Ur Squamous Epith Cells Moderate H (None-Few) per lpf Ur Transition Epith Cell Few (None-Few) per hpf Urine Bacteria Many H (None-Few) per hpf Ur Culture Indicated? YES A (NO) - Radiology Data Radiology results reviewed: Yes I reviewed the patient's radiology results. Chest X-Ray 06/28/17 14:24 IMPRESSION: No acute process. D/ / Schuyler Purcell MD / Schuyler Purcell MD Interpreting Provider: Schuyler Purcell MD Chest CT 06/28/17 15:32 IMPRESSION: 1. Bibasilar patchy airspace opacities. If patient has clinical symptoms of infection, this may represent pneumonia. 2. Mild right hydronephrosis caused by a 4 mm stone in the distal right ureter at the UVJ. 3. Ch[address]. No CT evidence of cholecystitis. D/ / 06/28/2017 17:32:42 Mane Can MD / jarrod Interpreting Provider: aMne Can MD Abdomen/Pelvis CT 06/28/17 15:33 IMPRESSION: 1. Bibasilar patchy airspace opacities. If patient has clinical symptoms of infection, this may represent pneumonia. 2. Mild right hydronephrosis caused by a 4 mm stone in the distal right ureter at the UVJ. 3. Cholelithiasis. No CT evidence of cholecystitis. D/ / 06/28/2017 17:32:42 Mane Can MD / jarrod Interpreting Provider: Mane Can MD S.B.A.RAlbert - S.B.A.RAlbert Situation: Demographics Background: Presenting Complaint Assessment: Vital Signs, Patient/Family Expectation Recommendation: Recommendation based on pending studies, treatments, or consults S.B.A.RAlbert Report Given to: Dr. Didi You Repor Time: 17:49 Attestation Statement - Attestation Attestation: I examined this patient and my medical decision-making was reviewed with the Resident Physician. I agree with the documented findings, disposition and treatment plan as described except to the extent set forth below. Patient presents to the ED with vomiting. Cough. Fever. Started feeling bad last night. On examination she is in no distress. Tachycardic. Low-grade temp at 99. Some mild upper abdominal tenderness. Lungs diminished. Plan. The patient has a white blood cell count in the 20s with a shift. Positive bandemia. Tachycardic. Positive SIRS. Patient with acute renal insufficiency with a creatinine greater than 2. Patient meet septic shock criteria. Patient with a clear chest x-ray. We performed a CT chest abdomen pelvis looking for source of infection for her severe sepsis. Patient has bilateral infiltrates. She has cholelithiasis without cholecystitis. She has a kidney stone. Urinalysis still pending. IV antibiotics given. Blood pressures remained stable with a systolic now in the 130s. She is admitted to medicine. Urinalysis revealed positive nitrites and leukocytes. Will discuss with urology as patient is septic with a kidney stone. 45 minutes of critical care exclusive of separately billed procedures.
[2017-06-28 18:14] LABS: Bilirubin,Urine Negative (Negative); Blood,Urine Moderate (Negative); Clarity,Urine Cloudy (Clear); Color,Urine Dark Yellow (Yellow); Glucose,Urine (UA) Normal (Normal); Ketones,Urine Trace mg/dL (Negative); Leukocyte Esterase,Urine Moderate (Negative); Nitrite,Urine Positive (Negative); Protein,Urine 30 mg/dL (Neg-Trace); Specific Gravity,Urine 1.023 (1.010-1.025); Urobilinogen,Urine Normal (Normal)
[2017-06-28 18:17] LABS: Bacteria,Urine Many per hpf (None-Few); Squamous Epithelial Cell,Urine Moderate per lpf (None-Few); WBC,Urine 50-100 per hpf (0-3)
[2017-06-28 18:31] LABS: Transitional Epi Cells,Urine Few per hpf (None-Few)
[2017-06-28] MEDS ORDERED: Levofloxacin 500 MG/100 ML 500 MG/100 ML BAG IVPB SCH (23:00)
[2017-06-28] MEDS ORDERED: Nitroglycerin 0.4 MG TAB.SUBL SL PRN (23:04)
--- NOTE | 2017-06-28 23:22 | Internal Med History&Physical ---
<Washington Lopez - Last Filed: 06/29/17 04:08> Date of Encounter: 06/29/17 Time of Encounter: 09:00 Assessment and Plan (1) Sepsis Current visit: Yes Status: Acute Tachycardia, leukocytosis with bands, lactic acidosis and MORRIS. Possible source pneumonia + UTI. Start Zosyn, Levaquin. Blood and urine culture pending. Qualifiers: Sepsis type: sepsis due to unspecified organism Qualified Code(s): A41.9 - Sepsis, unspecified organism (2) MORRIS (acute kidney injury) Current visit: Yes Status: Acute Mixed Kidney injury pre-renal exacerbated by dehydration/nausea/vomiting hypoperfusion. Post-renal due to 4mm urolithiasis R ureter. Received 3L .9 NS ED Start 125mL/hr hydration. Trend BUN/Cr Urology consult AM. (3) Pneumonia Current visit: No Status: Suspected CT Chest - bibasilar PNA. Start Zosyn, Levaquin Zosyn (gr-/+/anaerobe); Levaquin (atypicals) Qualifiers: Pneumonia type: due to unspecified organism Laterality: right Lung location: lower lobe of lung Qualified Code(s): J18.1 - Lobar pneumonia, unspecified organism (4) Urolithiasis Current visit: Yes Status: Acute Urology consult AM. Continue hydration; trend BUN/Cr Qualifiers: Urinary calculus location: other lower urinary tract location Qualified Code(s): N21.8 - Other lower urinary tract calculus (5) Elevated troponin Current visit: Yes Status: Acute Unlikely ACS; ECG NSR, trending, ASA, prn nitroglycerin SL. Likely trace elevation in setting of sepsis (6) DVT prophylaxis Current visit: No Status: Acute SQ Heparin Q8 Internal Medicine - H&P: HPI Chief complaint: Nausea/vomitting and weakness Admitted From: Emergency Dept Plans for Post Hospital Care: Home History of present illness: Ms. Zamorano is a 67 year old female with PMH HTN, HLD, presenting to ED this afternoon with 1 day of nausea and vomiting. Pt reports difficulty keeping down meals and fluids having vomited approximately 20 times since symptoms started yesterday. Denies sick contacts, has eaten the same food as family who are asymptomatic, no diarrhea. ED course: NSR ECG, bibasilar pneumonia on CT chest, creatinine of 2.32 at 1430 today, 4mm stone R ureter with mild hydronephrosis. Patient reports no episodes of vomiting after Zofran in ED. Has received 3L of IV fluid. On 4L O2 NC, saturating at 93%, denies abdominal pain or flank pain. Pt code status [id number]. Past Med Surg Social Fam HX - Past Medical History Medical history: hypertension Psychiatric history: no psych history - Past Surgical History Surgical History: hysterectomy, orthopedic, other - Social History Smoking Status: Never smoker Smokeless Tobacco Status: No Alcohol use: none Drug use: none - Family History Mother Living Status: Still Living Hx Family Cardiac Disorders: No Hx Family Respiratory Disorders: No Hx Family Cancer: No Hx Family GI Disorders: No Internal Medicine - H&P: Meds Atorvastatin Calcium [Lipitor] 20 mg PO DAILY 07/07/16 [History] Lisinopril [Zestril] 20 mg PO DAILY 07/07/16 [History] Cyanocobalamin (B-12) [Vitamin B12] 1,000 mcg PO DAILY #90 tablet 07/14/16 [Rx] Cholecalciferol (D-3) [Vitamin D] 2,000 unit PO DAILY 08/31/16 [History] Ranitidine HCl [Heartburn Relief] 150 mg PO DAILY 06/28/17 [History] 3 Allergy/AdvReac Type Severity Reaction Status Date / Time No Known Allergies Allergy Verified 08/31/16 10:57 All Systems PM: A 10-system review of systems was performed and is negative for pertinent findings except as documented above in the HPI. - Constitutional Vitals: Temp Pulse Resp BP Pulse Ox 97.9 F 89 15 116/64 93 06/28/17 22:47 06/28/17 22:47 06/28/17 22:47 06/28/17 22:47 06/28/17 22:47 General appearance: Present: A&O X 3, answers questions appropriately - Neck Neck exam general surgery: Present: full ROM. Absent: lymphadenopathy - Respiratory Respiratory exam: Present: tachypnea. Absent: respiratory distress - Cardiovascular Cardiovascular exam: Present: +S1, +S2. Absent: irregular rhythm, JVD - GI/Abdominal GI/Abdominal exam: Present: no peritoneal signs. Absent: guarding, rebound Additional comments: negative Carroll sign - Back Exam Back exam: Absent: CVA tenderness (L), CVA tenderness (R) - Neurological Exam Neurological exam: Present: no focal deficits Internal Med - H&P Results - Labs CBC & Chem 7: 06/28/17 14:30 06/28/17 14:30 <Noreen Yang - Last Filed: 06/29/17 07:04> Date of Encounter: 06/29/17 All Systems PM: A 10-system review of systems was performed and is negative for pertinent findings except as documented above in the HPI. - Constitutional Vitals: Temp Pulse Resp BP Pulse Ox 98.3 F 110 40 78/50 92 06/29/17 05:32 06/29/17 05:32 06/29/17 05:32 06/29/17 05:35 06/29/17 05:32 Internal Med - H&P Results - Labs CBC & Chem 7: 06/28/17 14:30 06/29/17 04:08 Labs: BMP 06/29/17 04:08 Sodium 139 Potassium 3.2 L Chloride 110 H Carbon Dioxide 14 L BUN 38 H Creatinine 2.09 H Glucose 79 Calcium 7.2 L Cardiac Enzymes 06/28/17 Range/Units 23:44 Troponin I 0.03 (< 0.04) ng/mL - Attending Attestation Patient seen and examined along with resident physician, I agree with plan as listed above discussed with resident Ms. Zamorano is a 67 year old female came to the hospital was complaining of persistent episodes of nausea vomiting associated with generalized weakness, workup was consistent with urinary tract infection acute renal failure secondary to volume depletion and renal stone. Patient had fever and tachycardia and hypotension in addition to lactic acidosis. Patient received bolus fluid, with worsening of her condition urology was called urgently. Discussed urology team, stent placed at bedside by urology team. Patient had persistent sinus tachycardia and electrolyte was replaced stat. Discussed with staff Presser as needed. Close monitoring of fluid status Physical exam Chest crackles present at the lung base Heart S1-S2 normal regular rate and rythm Abdomen soft A/P 1-acute renal failure Sepsis secondary to urinary tract infection Possible community-acquired pneumonia See orderes
[2017-06-28] MEDS: Aspirin 81 MG TAB.CHEW PO SCH (23:26)
[2017-06-28] MEDS: 0.9 % Sodium Chloride 1,000 ML IVC SCH (23:27)
[2017-06-28 23:48] LABS: Magnesium 1.2 mg/dL (1.6-2.6)
[2017-06-29] MEDS ORDERED: Piperacillin/Tazobactam 3.375 GM/200 ML BAG IVPB SCH
[2017-06-29] MEDS ORDERED: Ondansetron 4 MG/2 ML VIAL ONE (01:50)
[2017-06-29] MEDS: Ondansetron 4 MG/2 ML VIAL IVP PRN ×2 (01:57→12:48)
[2017-06-29] MEDS: Ipratropium/Albuterol Neb 3 ML IH SCH ×5 (01:59→21:06)
[2017-06-29] MEDS: Piperacillin/Tazobactam 3.375 GM/200 ML BAG IVPB SCH ×2 (02:24→08:40)
[2017-06-29] MEDS ORDERED: *HR* Promethazine 25 MG/ML VIAL IVP PRN (02:33)
[2017-06-29] MEDS ORDERED: *HR* Metoprolol 5 MG/5 ML VIAL IVP ONE (03:45)
[2017-06-29 04:39] LABS: Calcium 7.2 mg/dL (8.6-10.3); Phosphorous 2.6 mg/dL (2.7-4.5); Potassium 3.2 mEq/L (3.5-5.1)
--- NOTE | 2017-06-29 05:44 | Urology - Consult Note ---
Date of Encounter: 06/29/17 Time of Encounter: 05:42 - Assessment and Plan (1) Urolithiasis Current Visit: Yes Status: Acute Assessment and plan: 67-year-old woman with a right renal stone. Recommend cystoscopy and right ureteral stent placement. She was informed of the risks of the procedure including but not limited to bleeding, infection, injury to other structures, need for further procedures, stent irritation, ureteral perforation, need for nephrostomy tube, need for open repair, risks unforeseen, and the risk of anesthesia. She is willing to proceed. Qualifiers: Urinary calculus location: other lower urinary tract location Qualified Code(s): N21.8 - Other lower urinary tract calculus Urology CN:HPI Consult date: 06/29/17 Reason for consult Urology: Hydronephrosis (Right ureteral stone) History of present illness: 67-year-old woman was admitted for pneumonia and a urinary tract infection with right ureteral stone. She presented with nausea and vomiting and shortness of breath. The initial impression was that the pneumonia was seen into the infection, but now she is become hypotensive. She has a distal right ureteral stone with evidence of hydronephrosis. Past Med Surg Social Fam HX - Past Medical History Medical history: hypertension Psychiatric history: no psych history - Past Surgical History Surgical History: hysterectomy, orthopedic, other - Social History Smoking Status: Never smoker Smokeless Tobacco Status: No Alcohol use: none Drug use: none - Family History Mother Living Status: Still Living Hx Family Cardiac Disorders: No Hx Family Respiratory Disorders: No Hx Family Cancer: No Hx Family GI Disorders: No Medications and Allergies Atorvastatin Calcium [Lipitor] 20 mg PO DAILY 07/07/16 [History] Lisinopril [Zestril] 20 mg PO DAILY 07/07/16 [History] Cyanocobalamin (B-12) [Vitamin B12] 1,000 mcg PO DAILY #90 tablet 07/14/16 [Rx] Cholecalciferol (D-3) [Vitamin D] 2,000 unit PO DAILY 08/31/16 [History] Ranitidine HCl [Heartburn Relief] 150 mg PO DAILY 06/28/17 [History] 3 Allergy/AdvReac Type Severity Reaction Status Date / Time No Known Allergies Allergy Verified 08/31/16 10:57 Review of Systems ROS unobtainable: due to mental status Exam Initial Vital Signs Temp Pulse Resp BP Pulse Ox 99.1 F 104 20 103/65 88 06/28/17 13:56 06/28/17 13:56 06/28/17 13:56 06/28/17 13:56 06/28/17 13:56 Urology Results - Labs 06/28/17 14:30 06/29/17 04:08 Abnormal lab results WBC 28.5 K/mcL (4.3-11.1) H 06/28/17 14:30 Plt Count 115 K/mcL (140-400) L 06/28/17 14:30 Band Neutrophils % 30.0 % (0-4) H 06/28/17 14:30 Metamyelocytes % 10.0 % (0) H 06/28/17 14:30 Myelocytes % 4.0 % (0) H 06/28/17 14:30 Neutrophils # 22.8 K/mcL (1.6-8.9) H 06/28/17 14:30 Nucleated RBCs/100 WBC 0.2 /100 WBC (0) H 06/28/17 14:30 Toxic Vacuolation Present (Not Present) A 06/28/17 14:30 Platelet Estimate Decreased (Normal) L 06/28/17 14:30 Potassium 3.2 mEq/L (3.5-5.1) L 06/29/17 04:08 Chloride 110 mEq/L (98-107) H 06/29/17 04:08 Carbon Dioxide 14 mEq/L (23-29) L 06/29/17 04:08 BUN 38 mg/dL (8-23) H 06/29/17 04:08 Creatinine 2.09 mg/dL (0.60-1.20) H 06/29/17 04:08 Est GFR ( Amer) 28 (> 60) L 06/29/17 04:08 Est GFR (Non-Af Amer) 23 (> 60) L 06/29/17 04:08 Lactic Acid 4.7 mmol/L (0.5-2.2) H* 06/29/17 04:08 Calcium 7.2 mg/dL (8.6-10.3) L 06/29/17 04:08 Phosphorus 2.6 mg/dL (2.7-4.5) L 06/29/17 04:08 Magnesium 1.2 mg/dL (1.6-2.6) L 06/28/17 14:30 Total Bilirubin 1.9 mg/dL (0.3-1.0) H 06/28/17 14:30 Alkaline Phosphatase 121 Units/L (34-104) H 06/28/17 14:30 Urine Clarity Cloudy (Clear) A 06/28/17 17:50 Urine Protein 30 mg/dL (Neg-Trace) H 06/28/17 17:50 Urine Ketones Trace mg/dL (Negative) H 06/28/17 17:50 Urine Blood Moderate (Negative) H 06/28/17 17:50 Urine Nitrite Positive (Negative) A 06/28/17 17:50 Ur Leukocyte Esterase Moderate (Negative) H 06/28/17 17:50 Urine Microscopic RBC 3-5 per hpf (0-3) H 06/28/17 17:50 Urine Microscopic WBC 50-100 per hpf (0-3) H 06/28/17 17:50 Ur Squamous Epith Cells Moderate per lpf (None-Few) H 06/28/17 17:50 Urine Bacteria Many per hpf (None-Few) H 06/28/17 17:50 Ur Culture Indicated? YES (NO) A 06/28/17 17:50 Diabetes panel 06/29/17 Range/Units 04:08 Sodium 139 (136-145) mEq/L Potassium 3.2 L (3.5-5.1) mEq/L Chloride 110 H (98-107) mEq/L Carbon Dioxide 14 L (23-29) mEq/L BUN 38 H (8-23) mg/dL Creatinine 2.09 H (0.60-1.20) mg/dL Glucose 79 (70-105) mg/dL Calcium 7.2 L (8.6-10.3) mg/dL Calcium panel 06/29/17 Range/Units 04:08 Calcium 7.2 L (8.6-10.3) mg/dL Phosphorus 2.6 L (2.7-4.5) mg/dL Pituitary panel 06/29/17 Range/Units 04:08 Sodium 139 (136-145) mEq/L Potassium 3.2 L (3.5-5.1) mEq/L Chloride 110 H (98-107) mEq/L Carbon Dioxide 14 L (23-29) mEq/L BUN 38 H (8-23) mg/dL Creatinine 2.09 H (0.60-1.20) mg/dL Glucose 79 (70-105) mg/dL Calcium 7.2 L (8.6-10.3) mg/dL Adrenal panel 06/29/17 Range/Units 04:08 Sodium 139 (136-145) mEq/L Potassium 3.2 L (3.5-5.1) mEq/L Chloride 110 H (98-107) mEq/L Carbon Dioxide 14 L (23-29) mEq/L BUN 38 H (8-23) mg/dL Creatinine 2.09 H (0.60-1.20) mg/dL Glucose 79 (70-105) mg/dL Calcium 7.2 L (8.6-10.3) mg/dL All other labs normal. - Imaging CT scan - abdomen: report reviewed, image reviewed CT scan - pelvis: report reviewed, image reviewed Consult Discharge Plan - Plan Referrals: Linda Reyes CNP [Primary Care Provider] -
[2017-06-29] MEDS ORDERED: Potassium Chloride 40 MEQ, Lidocaine 1% 2 ML in D5% in Water 500 ML IVPB ONE (05:58)
[2017-06-29] MEDS ORDERED: *HR* Heparin 5,000 UNIT/ML VIAL SQ SCH (06:00)
[2017-06-29] MEDS ORDERED: Magnesium Sulfate 3 GM in D5% in Water 100 ML IVPB ONE (06:01)
--- NOTE | 2017-06-29 06:32 | Urology Procedure Note ---
Date of Encounter: 06/29/17 Time of Encounter: 06:28 Procedures:Urology - Cystoscopy Additional comments: After informed consent was obtained we proceeded to place a cystoscopy and right ureteral stent. Flexible cystoscopy was performed. The bladder was inflamed. The right ureteral orifice was edematous. There was no evidence of bladder tumor. A zip wire was placed up the right ureteral orifice and moved past the distal stone. Resistance was met as the wire guided into the kidney. I attempted to place a 6 Salv[place]orean by 26 cm JJ stent. This seemed to be too long. I exchanged it for a 6 Salvadorean x 24 centimeter double-J stent. At this point I felt that maybe the stent was coiling in the bladder. The cystoscope was reinserted and stent was coiled in the bladder. I carefully removed the stent, but this did end up in having the wire come out as well. A sensor wire was then placed up to right ureteral orifice. I then passed a 4.8 Salvadorean by 24 cm double- J stent. A good curl was seen in the bladder. Purulent fluid came out of the ureter. A Alegria catheter was then placed.
[2017-06-29] MEDS: 0.9 % Sodium Chloride 1,000 ML IVC SCH (06:47)
[2017-06-29] MEDS ORDERED: Magnesium Sulfate 1 GM in 0.9 % Sodium Chloride 50 ML IVPB ONE (06:52)
[2017-06-29] MEDS ORDERED: Ringers Solution, Lactated 1,000 ML IVC ONE ×3 (07:33→15:53)
[2017-06-29] MEDS ORDERED: Ringers Solution, Lactated 1,000 ML ONE (07:34)
[2017-06-29] MEDS: Cefepime HCl 2,000 MG in Water for inj. (sterile) 20 ML IVP SCH ×2 (08:40→19:29)
[2017-06-29] MEDS: Aspirin 81 MG TAB.CHEW PO SCH ×2 (08:41→09:02)
--- NOTE | 2017-06-29 08:54 | Procedure Note ---
<Randy Santos - Last Filed: 06/29/17 08:49> Date of procedure: 06/29/17 Pre-op diagnosis: septic shock Post-op diagnosis: same Procedure: right Femoral Central Venous Catheter (CVC, Central Line) Placement Date: 06/29/17 Time:0800 Indication: septic shock/Intravenous access Residents: Dr. Santos/Dr. Margy Nunn Attending: Dr. Baron A time-out was completed verifying correct patient, procedure, site, positioning , and special equipment if applicable. The patient was placed in a dependent position appropriate for central line placement based on the vein to be cannulated. The patients right groin was prepped and draped in sterile fashion. 1% Lidocaine was used to anesthetize the surrounding skin area. A triple lumen 7-Hungarian Cordis catheter was introduced into the the common femoral vein using the Seldinger technique and under ultrasound guidance. The catheter was threaded smoothly over the guide wire and appropriate blood return was obtained. Each lumen of the catheter was evacuated of air and flushed with sterile saline. The catheter was then sutured in place to the skin and a sterile dressing applied. Perfusion to the extremity distal to the point of catheter insertion was checked and found to be adequate. Dr. Baron and Dr. Margy Nunn were present for the entire procedure. Estimated Blood Loss: 5ml The patient tolerated the procedure well and there were no complications. Anesthesia: local Surgeon: Randy Santos Sql Report Developer: Juan Nunn Estimated blood loss (cc): 5 Pathology: none sent Condition: stable Disposition: no change <Marco Baron - Last Filed: 06/29/17 19:53> Procedure: I was present during the entire procedure.
[2017-06-29 08:56] LABS: ABG Base Excess -10 mEq/L (-2 to 3); ABG HCO3 14 mEq/L (21-27); ABG Oxygen Saturation 98 % (95-98); ABG PCO2 26 mmHg (35-45); ABG PH 7.34 pH Units (7.32-7.45); ABG PO2 102 mmHg (85-104); ABG TCO2 15 mEq/L (20-26)
[2017-06-29] MEDS ORDERED: Lisinopril 20 MG TABLET PO SCH (09:00)
[2017-06-29] MEDS ORDERED: Norepinephrine 4 MG in D5% in Water 250 ML IVC SCH (09:00)
[2017-06-29] MEDS ORDERED: Levofloxacin 750 MG/150 ML 750 MG/150 ML BAG IVPB SCH (10:00)
[2017-06-29] MEDS ORDERED: Vancomycin 1,250 MG in D5% in Water 250 ML IVPB SCH (11:00)
--- NOTE | 2017-06-29 11:00 | Pulmonology Consult Note ---
<Van Santa - Last Filed: 06/29/17 17:48> Date of Encounter: 06/29/17 Time of Encounter: 10:52 Assessment and Plan (1) Septic shock Current Visit: Yes Status: Acute Pt met crieteria for Septic Shock based on LA 4.7, tachycardia, tachypnea, Hypotension, worsened respiratory status, WBC 28.5, 30% bands S/p Uretal stent placement for obstructing Urolithiasis. Pt given 3 L of fluid prior to arrival in ICU given 2 more L of LR. Broadened ABX coverage to include Vanc, levaquin, and Cefepime Patient received Vanc, Zosyn, linezolid, and Levaquin Bcx from yesterday growing: Gram negative Catalina Proteus species, Gram negative enterobacteriaceae group Influenza A/B negative Repeat Bcx, repeat LA ordered Plan: Continue IV Fluids as needed. Has Levophed ordered if needed, but hasn't needed as of yet Continue Vanc, Levaquin, and Cefepime Continue to monitor CBC Continue to track BCX, UCx (2) UTI (urinary tract infection) Current Visit: No Status: Acute Urology on board uretal stent placement for obstructing Urolithiasis. Broadened ABX coverage to include Vanc, levaquin, and Cefepime Patient received Vanc, Zosyn, linezolid, and Levaquin Bcx from yesterday growing: Gram negative Catalina Proteus species, Gram negative enterobacteriaceae group Repeat Bcx, repeat LA ordered Plan: Continue Vanc, Levaquin, and Cefepime Continue to monitor CBC Continue to track BCX, UCx Qualifiers: Urinary tract infection type: site unspecified Hematuria presence: with hematuria Qualified Code(s): N39.0 - Urinary tract infection, site not specified; R31.9 - Hematuria, unspecified (3) Urolithiasis Current Visit: Yes Status: Acute Urology is on board Urology placed R Uretal Stent Plan: Appreciate recs from urology Continue to monitor Qualifiers: Urinary calculus location: other lower urinary tract location Qualified Code(s): N21.8 - Other lower urinary tract calculus (4) Hypokalemia Current Visit: No Status: Acute K 3.2 today down from 3.4 today Repletion ordered Started on electrolyte protocol Plan: Continue to monitor with daily BMP Continue to replete per electrolyte protocol (5) Pneumonia Current Visit: No Status: Suspected Per CT chest Bibasilar patchy airspace opacities. Possibly pna. Started on Zosyn and levequin Current Abx: Levaquin, Cefepime, Vanc Plan Continue abx for UTI that will provide coverage for possible PNA too Qualifiers: Pneumonia type: due to unspecified organism Laterality: bilateral Lung location: lower lobe of lung Qualified Code(s): J18.9 - Pneumonia, unspecified organism (6) Hypertension Current Visit: No Status: Chronic Hx of HTN on lisinopril Plan: Holding HTN meds 2/2 hypotension Qualifiers: Hypertension type: essential hypertension Qualified Code(s): I10 - Essential (primary) hypertension (7) HLD (hyperlipidemia) Current Visit: No Status: Chronic Hx of HLD on Lipitor Plan: Continue home lipitor Qualifiers: Hyperlipidemia type: unspecified Qualified Code(s): E78.5 - Hyperlipidemia , unspecified (8) Elevated troponin Current Visit: Yes Status: Acute Trop 0.05 on inital eval yesterday, trended to 0.03 on repeat Likely 2/2 demand ischemia 2/2 sepsis Plan: Continue to monitor Correct sepsis (9) DVT prophylaxis Current Visit: No Status: Acute SQ Heparin 5,000 Q8H GI PPx: Protonix History of Present Illness Consult date: 06/29/17 Requesting physician: Noreen Yang Reason for consult: other (Sepsis, MORRIS, Pneumonia) Chief complaint: Septic Shock History of present illness: 67F c PMhx of HTN, HLD who presented to [facility] on 06/28 for UTI, Kidney stone, and Sepsis. Urology was consulted who placed a R uretal stent. Patient became hypotensive and went into septic shock s/p procedure. She was transferred to the ICU. Pt being treated for Urosepsis septic shock. Pt on cefepime, Levaquin and Vanc. Pts BP has remained stable with IV fluids. Has not required pressors. LA was 4.7 after procedure, trending down to 4.2. Past Med Surg Social Fam HX - Past Medical History Medical history: hypertension Psychiatric history: no psych history - Past Surgical History Surgical History: hysterectomy, orthopedic, other - Social History Smoking Status: Never smoker Smokeless Tobacco Status: No Alcohol use: none Drug use: none - Family History Mother Living Status: Still Living Hx Family Cardiac Disorders: No Hx Family Respiratory Disorders: No Hx Family Cancer: No Hx Family GI Disorders: No Medications and Allergies Atorvastatin Calcium [Lipitor] 20 mg PO DAILY 07/07/16 [History] Lisinopril [Zestril] 20 mg PO DAILY 07/07/16 [History] Cyanocobalamin (B-12) [Vitamin B12] 1,000 mcg PO DAILY #90 tablet 07/14/16 [Rx] Cholecalciferol (D-3) [Vitamin D] 2,000 unit PO DAILY 08/31/16 [History] Ranitidine HCl [Heartburn Relief] 150 mg PO DAILY 06/28/17 [History] 3 Allergy/AdvReac Type Severity Reaction Status Date / Time No Known Allergies Allergy Verified 08/31/16 10:57 All Systems: A 10-system review of systems was performed and is negative for pertinent findings except as documented above in the HPI. Physical Examination Vital Signs: Vital Signs, Last 4 Hours Temp Pulse Resp BP Pulse Ox 06/29/17 10:00 99 26 90/59 97 06/29/17 09:51 22 99 06/29/17 09:00 102 24 88/55 99 06/29/17 08:00 102 26 73/58 100 06/29/17 07:58 105 06/29/17 07:30 98.5 F 105 28 76/46 96 Effort: mildly labored Auscultation: bilateral: diminished breath sounds (bases) Cardiovascular: regular rate and rhythm Gastrointestinal: normoactive bowel sounds, non-distended Integumentary: normal Extremities: no cyanosis Musculoskeletal: no deformities normal mental status Results - Laboratory Findings CBC and BMP: 06/29/17 11:42 06/29/17 12:30 ABG ABG pH 7.34 pH Units (7.32-7.45) 06/29/17 08:53 ABG pCO2 26 mmHg (35-45) L 06/29/17 08:53 ABG pO2 102 mmHg (85-104) 06/29/17 08:53 ABG O2 Saturation 98 % (95-98) 06/29/17 08:53 Abnormal lab findings: Abnormal lab results WBC 28.5 K/mcL (4.3-11.1) H 06/28/17 14:30 Plt Count 115 K/mcL (140-400) L 06/28/17 14:30 Band Neutrophils % 30.0 % (0-4) H 06/28/17 14:30 Metamyelocytes % 10.0 % (0) H 06/28/17 14:30 Myelocytes % 4.0 % (0) H 06/28/17 14:30 Neutrophils # 22.8 K/mcL (1.6-8.9) H 06/28/17 14:30 Nucleated RBCs/100 WBC 0.2 /100 WBC (0) H 06/28/17 14:30 Toxic Vacuolation Present (Not Present) A 06/28/17 14:30 Platelet Estimate Decreased (Normal) L 06/28/17 14:30 ABG pCO2 26 mmHg (35-45) L 06/29/17 08:53 ABG HCO3 14 mEq/L (21-27) L 06/29/17 08:53 ABG Total CO2 15 mEq/L (20-26) L 06/29/17 08:53 ABG Base Excess -10 mEq/L (-2 to 3) L 06/29/17 08:53 Potassium 3.2 mEq/L (3.5-5.1) L 06/29/17 04:08 Chloride 110 mEq/L (98-107) H 06/29/17 04:08 Carbon Dioxide 14 mEq/L (23-29) L 06/29/17 04:08 BUN 38 mg/dL (8-23) H 06/29/17 04:08 Creatinine 2.09 mg/dL (0.60-1.20) H 06/29/17 04:08 Est GFR ( Amer) 28 (> 60) L 06/29/17 04:08 Est GFR (Non-Af Amer) 23 (> 60) L 06/29/17 04:08 Lactic Acid 4.7 mmol/L (0.5-2.2) H* 06/29/17 04:08 Calcium 7.2 mg/dL (8.6-10.3) L 06/29/17 04:08 Phosphorus 2.6 mg/dL (2.7-4.5) L 06/29/17 04:08 Magnesium 1.2 mg/dL (1.6-2.6) L 06/28/17 14:30 Total Bilirubin 1.9 mg/dL (0.3-1.0) H 06/28/17 14:30 Alkaline Phosphatase 121 Units/L (34-104) H 06/28/17 14:30 Urine Clarity Cloudy (Clear) A 06/28/17 17:50 Urine Protein 30 mg/dL (Neg-Trace) H 06/28/17 17:50 Urine Ketones Trace mg/dL (Negative) H 06/28/17 17:50 Urine Blood Moderate (Negative) H 06/28/17 17:50 Urine Nitrite Positive (Negative) A 06/28/17 17:50 Ur Leukocyte Esterase Moderate (Negative) H 06/28/17 17:50 Urine Microscopic RBC 3-5 per hpf (0-3) H 06/28/17 17:50 Urine Microscopic WBC 50-100 per hpf (0-3) H 06/28/17 17:50 Ur Squamous Epith Cells Moderate per lpf (None-Few) H 06/28/17 17:50 Urine Bacteria Many per hpf (None-Few) H 06/28/17 17:50 Ur Culture Indicated? YES (NO) A 06/28/17 17:50 - Clinical Findings Intake & Output: Intake & Output 06/28/17 06/29/17 06/29/17 23:59 07:59 15:59 Intake Total 1237 / 1237 1350 / 1350 2071 Output Total 575 / 575 350 / 350 Balance 662 / 662 1000 / 1000 2071 Weight 95.4 kg 95.4 kg Consult Discharge Plan - Plan Referrals: Linda Reyes CNP [Primary Care Provider] - <Marco Baron - Last Filed: 06/29/17 20:05> Date of Encounter: 06/29/17 All Systems: A 10-system review of systems was performed and is negative for pertinent findings except as documented above in the HPI. Physical Examination Vital Signs: Vital Signs, Last 4 Hours Temp Pulse Resp BP Pulse Ox 06/29/17 18:00 98 20 122/79 98 06/29/17 17:00 105 20 133/79 95 06/29/17 16:25 20 95 06/29/17 16:00 97.4 F L 105 22 123/79 95 Results - Laboratory Findings CBC and BMP: 06/29/17 11:42 06/29/17 12:30 ABG ABG pH 7.34 pH Units (7.32-7.45) 06/29/17 08:53 ABG pCO2 26 mmHg (35-45) L 06/29/17 08:53 ABG pO2 102 mmHg (85-104) 06/29/17 08:53 ABG O2 Saturation 98 % (95-98) 06/29/17 08:53 PT/INR, D-dimer PT 15.5 Seconds (9.4-12.1) H 06/29/17 11:20 Abnormal lab findings: Abnormal lab results WBC 22.3 K/mcL (4.3-11.1) H 06/29/17 11:42 RBC 3.33 M/mcL (3.82-4.97) L 06/29/17 11:42 Hgb 9.6 g/dL (11.5-15.4) L D 06/29/17 11:42 Hct 30.3 % (35.3-44.9) L 06/29/17 11:42 RDW 14.6 % (11.5-14.5) H 06/29/17 11:42 Plt Count 57 K/mcL (140-400) L D 06/29/17 11:42 Band Neutrophils % 34.0 % (0-4) H 06/29/17 11:42 Metamyelocytes % 4.0 % (0) H 06/29/17 11:42 Myelocytes % 2.0 % (0) H 06/29/17 11:42 Neutrophils # 20.1 K/mcL (1.6-8.9) H 06/29/17 11:42 Nucleated RBCs/100 WBC 0.1 /100 WBC (0) H 06/29/17 11:42 Toxic Granulation Present (Not Present) A 06/29/17 11:42 Toxic Vacuolation Present (Not Present) A 06/29/17 11:42 Dohle Bodies Present (Not Present) A 06/29/17 11:42 Platelet Estimate Decreased (Normal) L 06/29/17 11:42 Immature Plt Fraction 9.4 % (1.1-6.1) H 06/29/17 11:42 PT 15.5 Seconds (9.4-12.1) H 06/29/17 11:20 ABG pCO2 26 mmHg (35-45) L 06/29/17 08:53 ABG HCO3 14 mEq/L (21-27) L 06/29/17 08:53 ABG Total CO2 15 mEq/L (20-26) L 06/29/17 08:53 ABG Base Excess -10 mEq/L (-2 to 3) L 06/29/17 08:53 VBG pH 7.19 pH Units (7.32-7.42) L* 06/29/17 12:49 VBG pO2 81 mmHg (25-50) H 06/29/17 12:49 VBG HCO3 17 mEq/L (21-27) L 06/29/17 12:49 Carbon Dioxide 14 mEq/L (23-29) L 06/29/17 12:30 BUN 42 mg/dL (8-23) H 06/29/17 12:30 Creatinine 2.61 mg/dL (0.60-1.20) H 06/29/17 12:30 Est GFR ( Amer) 22 (> 60) L 06/29/17 12:30 Est GFR (Non-Af Amer) 18 (> 60) L 06/29/17 12:30 Glucose 248 mg/dL (70-105) H 06/29/17 12:30 Calculated Osmolality 301 (280-300) H 06/29/17 12:30 Lactic Acid 4.2 mmol/L (0.5-2.2) H* 06/29/17 11:20 Calcium 7.0 mg/dL (8.6-10.3) L 06/29/17 12:30 Venous Ioniz Calcium 1.00 mmol/L (1.15-1.35) L 06/29/17 12:49 Phosphorus 2.6 mg/dL (2.7-4.5) L 06/29/17 04:08 Total Bilirubin 1.8 mg/dL (0.3-1.0) H 06/29/17 12:30 Direct Bilirubin 0.6 mg/dL (0.0-0.2) H 06/29/17 12:30 AST 56 Units/L (13-39) H 06/29/17 12:30 Alkaline Phosphatase 135 Units/L (34-104) H 06/29/17 12:30 Creatine Kinase 625 Units/L (30-223) H 06/29/17 12:30 Serum Total Protein 5.2 g/dL (6.4-8.9) L 06/29/17 12:30 Albumin 2.7 g/dL (3.5-5.7) L 06/29/17 12:30 Urine Clarity Cloudy (Clear) A 06/28/17 17:50 Urine Protein 30 mg/dL (Neg-Trace) H 06/28/17 17:50 Urine Ketones Trace mg/dL (Negative) H 06/28/17 17:50 Urine Blood Moderate (Negative) H 06/28/17 17:50 Urine Nitrite Positive (Negative) A 06/28/17 17:50 Ur Leukocyte Esterase Moderate (Negative) H 06/28/17 17:50 Urine Microscopic RBC 3-5 per hpf (0-3) H 06/28/17 17:50 Urine Microscopic WBC 50-100 per hpf (0-3) H 06/28/17 17:50 Ur Squamous Epith Cells Moderate per lpf (None-Few) H 06/28/17 17:50 Urine Bacteria Many per hpf (None-Few) H 06/28/17 17:50 Ur Culture Indicated? YES (NO) A 06/28/17 17:50 Enterobacteriac sp PCR DETECTED (Not Detect) A 06/28/17 16:03 Proteus species (PCR) DETECTED (Not Detect) A 06/28/17 16:03 - Clinical Findings Intake & Output: Intake & Output 06/29/17 06/29/17 06/29/17 07:59 15:59 23:59 Intake Total 1350 / 1350 3194 / 3194 1260 / 1260 Output Total 350 / 350 150 / 150 250 / 250 Balance 1000 / 1000 3044 / 3044 1010 / 1010 Weight 95.4 kg - Attending Attestation I saw the patient with the resident agree with History and Physical exam findings. Labs and Radiology were reviewed MOTOR POLARIZER: Patient is lethargic but she is arousable most likely septic encephalopathy slowly improving with resuscitation NECK : No JVD appreciated Pulmonary : Patient has hypoxic respiratory failure most likely due to fluid overlaod gas exchange stable with current O2 supplementation Cardiac : hypotensive most likely due to septic shock after instrumentation of the ureter , placed central line access for anticipated vasopressor use , patient is responding for fluid resuscitation Nutrition/GI: Patient is NPO PPI prophylaxis Renal : Labs and output reviewed , patient had urinary retention secondary to renal calculus after instrumentation the patient went into septic shock . ID : Nielsen culture , blood culture growing proteus patient is on broad spectrum antibiotics will de escalate soon.. Heme onc : No acute issues Disposition : Remain critically ill Code status: DNRA-DNI Family/POA: and Sister. Spent 50 minutes of critical care time in resuscitation and in medical decision making in preventing vital organ function decline.
[2017-06-29] MEDS ORDERED: Potassium Phosphate 44 MEQ in 0.9 % Sodium Chloride 250 ML IVPB PRN (11:13)
[2017-06-29] MEDS ORDERED: Potassium Chloride 40 MEQ/200 ML BAG IVPB PRN (11:13)
[2017-06-29 11:28] LABS: Acinetobacter baumannii by PCR Not Detected (Not Detect); Enterococcus by PCR Not Detected (Not Detect); Staphylococcus aureus by PCR Not Detected (Not Detect); Streptococcus agalactiae(B)PCR Not Detected (Not Detect); Streptococcus by PCR Not Detected (Not Detect); Streptococcus pneumoniae PCR Not Detected (Not Detect); Streptococcus pyogenes (A) PCR Not Detected (Not Detect); blaKPC Carbapenem-Resist Gene Not Detected (Not Detect); mecA Methicillin-Resist Gene Not Detected (Not Detect); vanA/B Vancomycin-Resist Genes Not Detected (Not Detect)
[2017-06-29 11:29] LABS: Candida albicans by PCR Not Detected (Not Detect); Candida glabrata by PCR Not Detected (Not Detect); Candida krusei by PCR Not Detected (Not Detect); Candida parapsilosis by PCR Not Detected (Not Detect); Candida tropicalis by PCR Not Detected (Not Detect); Escherichia coli by PCR Not Detected (Not Detect); Klebsiella oxytoca by PCR Not Detected (Not Detect); Klebsiella pneumoniae by PCR Not Detected (Not Detect); Pseudomonas aeruginosa by PCR Not Detected (Not Detect); Serratia marcescens by PCR Not Detected (Not Detect)
[2017-06-29 11:37] LABS: INR 1.4; Prothrombin Time 15.5 Seconds (9.4-12.1)
[2017-06-29 11:40] LABS: Activated Partial Thrombo Time 31.9 Seconds (26.0-36.0)
[2017-06-29 11:56] LABS: Hematocrit 30.3 % (35.3-44.9); Immature Platelets 9.4 % (1.1-6.1); Mean Corpuscular HGB Conc 31.7 g/dL (31.6-35.5); Mean Corpuscular Hemoglobin 28.8 pg (28.0-33.3); Mean Platelet Volume 10.8 fL (9.4-12.4); Nucleated Red Blood Cells 0.1 /100 WBC (0); Red Blood Count 3.33 M/mcL (3.82-4.97); Red Cell Distribution Width 14.6 % (11.5-14.5)
[2017-06-29 11:57] LABS: Hemoglobin 9.6 g/dL (11.5-15.4); Platelet Count 57 K/mcL (140-400)
[2017-06-29] MEDS: Pantoprazole 40 MG VIAL IVP SCH (12:35)
[2017-06-29 12:36] LABS: Dohle Bodies Present (Not Present); Monocytes # 0.9 K/mcL (0.0-1.3); Neutrophils # 20.1 K/mcL (1.6-8.9); Platelet Estimate Decreased (Normal); Toxic Granulation Present (Not Present); Toxic Vacuolation Present (Not Present)
[2017-06-29 12:58] LABS: VBG HCO3 17 mEq/L (21-27); VBG PCO2 43 mmHg (41-51); VBG PH 7.19 pH Units (7.32-7.42); VBG PO2 81 mmHg (25-50)
[2017-06-29 14:01] LABS: Albumin 2.7 g/dL (3.5-5.7); Albumin/Globulin Ratio 1.1 (1.1-2.2); Bilirubin,Direct 0.6 mg/dL (0.0-0.2); Globulin 2.5 g/dL (2.4-3.5); Magnesium 2.2 mg/dL (1.6-2.6); Total Protein 5.2 g/dL (6.4-8.9)
[2017-06-29 15:17] LABS: Bilirubin,Indirect 1.2 mg/dL (0.0-1.2); Bilirubin,Total 1.8 mg/dL (0.3-1.0); Potassium 3.9 mEq/L (3.5-5.1)
[2017-06-29] MEDS ORDERED: D5% in Water 1,000 ML IVC PRN (15:52)
[2017-06-29] MEDS ORDERED: *HR* Dextrose 50 % in Water (Syg) 50 ML SYRINGE IVP PRN (15:52)
[2017-06-29] MEDS ORDERED: Dextrose Gel 15 GM PO PRN ×2 (15:52)
[2017-06-29] MEDS: Insulin LISPRO 300 UNITS/3 ML VIAL SQ SCH (18:16)
--- NOTE | 2017-06-29 19:02 | Electrocardiograph Report ---
[address] [place] [address] Test Date: 2017-06-28 Pat Name: Mona Zamorano Department: 104 Room: 11 Gender: F Manager Exchange: : 1950 Requested By: Sj Bhatti Order Number: [id number] Reading MD: Tobi Pascual DO Measurements Intervals [place] Rate: 104 P: 6 NC: 128 QRS: -47 QRSD: 96 T: 44 QT: 356 QTc: 417 Interpretive Statements SINUS TACHYCARDIA PATTERN CONSISTENT WITH PULMONARY DISEASE LEFT ANTERIOR FASCICULAR BLOCK MODERATE VOLTAGE CRITERIA FOR LVH, CONSIDER NORMAL VARIANT NONSPECIFIC T-WAVE ABNORMALITY Electronically Signed On 06-29-2017 19:00:59 EST by Tobi Pascual DO
[2017-06-30] MEDS: Insulin LISPRO 300 UNITS/3 ML VIAL SQ SCH ×5 (01:21→23:50)
[2017-06-30 04:18] LABS: Basophils % 0.2 %; Immature Granulocytes % 0.7 % (0-4); Lymphocytes % 3.9 %; Nucleated Red Blood Cells 0.1 /100 WBC (0); Red Cell Distribution Width 14.6 % (11.5-14.5)
[2017-06-30 04:19] LABS: Basophils # 0.1 K/mcL (0.0-0.2); Hematocrit 31.5 % (35.3-44.9); Hemoglobin 10.2 g/dL (11.5-15.4); Lymphocytes # 1.2 K/mcL (0.6-4.6); Mean Corpuscular HGB Conc 32.4 g/dL (31.6-35.5); Mean Corpuscular Hemoglobin 29.1 pg (28.0-33.3); Mean Platelet Volume 11.8 fL (9.4-12.4); Monocytes % 3.2 %; Neutrophils # 27.2 K/mcL (1.6-8.9)
[2017-06-30 04:25] LABS: VBG PH 7.27 pH Units (7.32-7.42)
[2017-06-30] MEDS: Ipratropium/Albuterol Neb 3 ML IH SCH ×4 (04:25→21:26)
[2017-06-30 04:39] LABS: Platelet Count 45 K/mcL (140-400)
[2017-06-30 04:42] LABS: Platelet Estimate Decreased (Normal)
[2017-06-30 04:44] LABS: Calcium 7.3 mg/dL (8.6-10.3); Magnesium 2.2 mg/dL (1.6-2.6); Phosphorous 4.9 mg/dL (2.7-4.5); Potassium 4.6 mEq/L (3.5-5.1)
[2017-06-30 05:10] LABS: ABG Base Excess -8 mEq/L (-2 to 3); ABG HCO3 17 mEq/L (21-27); ABG Oxygen Saturation 93 % (95-98); ABG PCO2 31 mmHg (35-45); ABG PH 7.35 pH Units (7.32-7.45); ABG PO2 71 mmHg (85-104); ABG TCO2 18 mEq/L (20-26)
--- NOTE | 2017-06-30 07:44 | Urology Progress Note ---
Date of Encounter: 06/30/17 Time of Encounter: 07:41 - Assessment and Plan (1) Urolithiasis Current Visit: Yes Status: Acute Assessment and plan: s/p right ureteral stent placement, pod #1. 1. Continue Alegria. 2. Appreciate IM/critical care suporrt. 3. Will treat stone electively as an outpatient. Qualifiers: Urinary calculus location: other lower urinary tract location Qualified Code(s): N21.8 - Other lower urinary tract calculus Progress Note Narrative: 67 year old woman status post cystoscopy and right ureteral stent placement, POD #1. She is doing much better today. No fevers. Catheter draining well. No use of pressors. Urine culture and blood cultures are positive for GNR. Objective Initial Vital Signs Temp Pulse Resp BP Pulse Ox 99.1 F 104 20 103/65 88 06/28/17 13:56 06/28/17 13:56 06/28/17 13:56 06/28/17 13:56 06/28/17 13:56 - General physical appearance Present: well developed, well nourished, no distress - Respiratory Present: normal respiratory effort - Abdomen Present: soft - Genitourinary Urine Appearance: Present: Hematuria (Murky, brown.) - Labs 06/30/17 04:05 06/30/17 04:05 Diabetes panel 06/29/17 06/30/17 Range/Units 12:30 04:05 Sodium 136 142 (136-145) mEq/L Potassium 3.9 4.6 (3.5-5.1) mEq/L Chloride 107 112 H (98-107) mEq/L Carbon Dioxide 14 L 17 L (23-29) mEq/L BUN 42 H 45 H (8-23) mg/dL Creatinine 2.61 H 2.09 H (0.60-1.20) mg/dL Glucose 248 H 77 (70-105) mg/dL Calcium 7.0 L 7.3 L (8.6-10.3) mg/dL AST 56 H (13-39) Units/L ALT 39 (7-52) Units/L Alkaline Phosphatase 135 H (34-104) Units/L Albumin 2.7 L (3.5-5.7) g/dL Calcium panel 06/29/17 06/30/17 Range/Units 12:30 04:05 Calcium 7.0 L 7.3 L (8.6-10.3) mg/dL Phosphorus 4.9 H (2.7-4.5) mg/dL Albumin 2.7 L (3.5-5.7) g/dL Pituitary panel 06/29/17 06/30/17 Range/Units 12:30 04:05 Sodium 136 142 (136-145) mEq/L Potassium 3.9 4.6 (3.5-5.1) mEq/L Chloride 107 112 H (98-107) mEq/L Carbon Dioxide 14 L 17 L (23-29) mEq/L BUN 42 H 45 H (8-23) mg/dL Creatinine 2.61 H 2.09 H (0.60-1.20) mg/dL Glucose 248 H 77 (70-105) mg/dL Calcium 7.0 L 7.3 L (8.6-10.3) mg/dL Adrenal panel 06/29/17 06/30/17 Range/Units 12:30 04:05 Sodium 136 142 (136-145) mEq/L Potassium 3.9 4.6 (3.5-5.1) mEq/L Chloride 107 112 H (98-107) mEq/L Carbon Dioxide 14 L 17 L (23-29) mEq/L BUN 42 H 45 H (8-23) mg/dL Creatinine 2.61 H 2.09 H (0.60-1.20) mg/dL Glucose 248 H 77 (70-105) mg/dL Calcium 7.0 L 7.3 L (8.6-10.3) mg/dL Total Bilirubin 1.8 H (0.3-1.0) mg/dL AST 56 H (13-39) Units/L ALT 39 (7-52) Units/L Alkaline Phosphatase 135 H (34-104) Units/L Albumin 2.7 L (3.5-5.7) g/dL - VTE Documentation of Mechanical Device: Intermittent pneumatic compression device Consult Discharge Plan - Plan Referrals: Linda Reyes CNP [Primary Care Provider] -
[2017-06-30] MEDS: Aspirin 81 MG TAB.CHEW PO SCH (09:11)
[2017-06-30] MEDS: Pantoprazole 40 MG VIAL IVP SCH (09:11)
[2017-06-30] MEDS: Cefepime HCl 2,000 MG in Water for inj. (sterile) 20 ML IVP SCH ×2 (09:18→19:46)
[2017-06-30 10:08] LABS: Activated Partial Thrombo Time 28.7 Seconds (26.0-36.0); INR 1.2
[2017-06-30] MEDS ORDERED: Aminoglycoside Consult 1 EACH MC ONE (10:13)
--- NOTE | 2017-06-30 11:03 | Pulmonology Progress Note ---
<Van Santa - Last Filed: 06/30/17 11:46> Date of Encounter: 06/30/17 Time of Encounter: 11:01 Assessment and Plan (1) Septic shock Current Visit: Yes Status: Acute Pt met crieteria for Septic Shock based on LA 4.7, tachycardia, tachypnea, Hypotension, worsened respiratory status, WBC 28.5, 30% bands S/p Uretal stent placement for obstructing Urolithiasis. Pt given 3 L of fluid prior to arrival in ICU given 2 more L of LR. Broadened ABX coverage to include Vanc, levaquin, and Cefepime Patient received Vanc, Zosyn, linezolid, and Levaquin Bcx from yesterday growing: Gram negative Catalina Proteus species, Gram negative enterobacteriaceae group Influenza A/B negative Repeat Bcx, ordered yesterday and repeated again today LA down to 3.1 Mental status improved. Hemodynamically stable. Plan: Continue IV Fluids as needed. Has Levophed ordered if needed, but hasn't needed as of yet Continue Levaquin, and Cefepime Continue to monitor CBC Continue to track BCX, UCx (2) UTI (urinary tract infection) Current Visit: No Status: Acute Urology on board uretal stent placement for obstructing Urolithiasis. Broadened ABX coverage to include Vanc, levaquin, and Cefepime Patient received Vanc, Zosyn, linezolid, and Levaquin Bcx from yesterday growing: Gram negative Catalina Proteus species, Gram negative enterobacteriaceae group Repeat Bcx, Plan: Continue Levaquin, and Cefepime Continue to monitor CBC Continue to track BCX, UCx Qualifiers: Urinary tract infection type: site unspecified Hematuria presence: with hematuria Qualified Code(s): N39.0 - Urinary tract infection, site not specified; R31.9 - Hematuria, unspecified (3) Urolithiasis Current Visit: Yes Status: Acute Urology is on board Urology placed R Uretal Stent Urology plans to treat stone out patient. Plan: Appreciate recs from urology Continue to monitor Qualifiers: Urinary calculus location: other lower urinary tract location Qualified Code(s): N21.8 - Other lower urinary tract calculus (4) Hypokalemia Current Visit: No Status: Acute K 4.6 today up from 3.2 yesterday Pt on electrolyte protocol Plan: Continue to monitor with daily BMP Continue to replete per electrolyte protocol (5) Pneumonia Current Visit: No Status: Suspected Per CT chest Bibasilar patchy airspace opacities. Possibly pna. Started on Zosyn and levequin Current Abx: Levaquin, Cefepime Plan Continue abx for UTI that will provide coverage for possible PNA too Qualifiers: Pneumonia type: due to unspecified organism Laterality: bilateral Lung location: lower lobe of lung Qualified Code(s): J18.9 - Pneumonia, unspecified organism (6) Hypertension Current Visit: No Status: Chronic Hx of HTN on lisinopril Plan: continued to hold due to MORRIS and sepsis Qualifiers: Hypertension type: essential hypertension Qualified Code(s): I10 - Essential (primary) hypertension (7) HLD (hyperlipidemia) Current Visit: No Status: Chronic Hx of HLD on Lipitor Plan: Continue home lipitor Qualifiers: Hyperlipidemia type: unspecified Qualified Code(s): E78.5 - Hyperlipidemia , unspecified (8) Elevated troponin Current Visit: Yes Status: Acute Trop 0.05 on inital eval yesterday, trended to 0.03 on repeat Likely 2/2 demand ischemia 2/2 sepsis Plan: Continue to monitor Correct sepsis (9) DVT prophylaxis Current Visit: No Status: Acute SQ Heparin 5,000 Q8H GI PPx: Protonix Subjective Principal diagnosis: Urosepsis Interval history: 67F c PMhx of HTN, HLD who presented to [facility] on 06/28 for UTI, Kidney stone, and Sepsis. Urology was consulted who placed a R uretal stent. Patient became hypotensive and went into septic shock s/p procedure. She was transferred to the ICU. Pt being treated for Urosepsis septic shock. Pt on cefepime, Levaquin. Vanc d/c'd. Pts BP has remained stable with IV fluids. Has not required pressors. LA was 4.7 after procedure, trending down to 3.1. Mentation improved. Now on room air. Will be transferred out of ICU as patient is now stable. Objective PUL Vital signs: Last Vital Signs Temp 98.2 F 06/30/17 08:49 Pulse 98 06/30/17 10:00 Resp 16 06/30/17 10:46 BP 141/77 06/30/17 10:00 Pulse Ox 92 06/30/17 10:46 General appearance: no acute distress Eyes: nonicteric ENT: oropharynx moist Neck: supple Effort: normal Auscultation: bilateral: clear Cardiovascular: regular rate and rhythm Gastrointestinal: normoactive bowel sounds, non-distended Extremities: no cyanosis Musculoskeletal: no deformities normal mental status, non-focal exam mood appropriate Results - Laboratory Findings CBC and BMP: 06/30/17 04:05 06/30/17 04:05 ABG ABG pH 7.35 pH Units (7.32-7.45) 06/30/17 05:08 ABG pCO2 31 mmHg (35-45) L 06/30/17 05:08 ABG pO2 71 mmHg (85-104) L 06/30/17 05:08 ABG O2 Saturation 93 % (95-98) L 06/30/17 05:08 PT/INR, D-dimer PT 13.0 Seconds (9.4-12.1) H 06/30/17 09:40 D-Dimer 85125 ng/mLFEU (0-500) H 06/30/17 09:40 Abnormal lab findings: Abnormal lab results WBC 29.6 K/mcL (4.3-11.1) H 06/30/17 04:05 RBC 3.50 M/mcL (3.82-4.97) L 06/30/17 04:05 Hgb 10.2 g/dL (11.5-15.4) L 06/30/17 04:05 Hct 31.5 % (35.3-44.9) L 06/30/17 04:05 RDW 14.6 % (11.5-14.5) H 06/30/17 04:05 Plt Count 45 K/mcL (140-400) L 06/30/17 04:05 Band Neutrophils % 34.0 % (0-4) H 06/29/17 11:42 Metamyelocytes % 4.0 % (0) H 06/29/17 11:42 Myelocytes % 2.0 % (0) H 06/29/17 11:42 Neutrophils # 27.2 K/mcL (1.6-8.9) H 06/30/17 04:05 Nucleated RBCs/100 WBC 0.1 /100 WBC (0) H 06/30/17 04:05 Toxic Granulation Present (Not Present) A 06/29/17 11:42 Toxic Vacuolation Present (Not Present) A 06/29/17 11:42 Dohle Bodies Present (Not Present) A 06/29/17 11:42 Platelet Estimate Decreased (Normal) L 06/30/17 04:05 Immature Plt Fraction 9.4 % (1.1-6.1) H 06/29/17 11:42 PT 13.0 Seconds (9.4-12.1) H 06/30/17 09:40 Fibrinogen 568 mg/dL (169-393) H 06/30/17 09:40 D-Dimer 38360 ng/mLFEU (0-500) H 06/30/17 09:40 ABG pCO2 31 mmHg (35-45) L 06/30/17 05:08 ABG pO2 71 mmHg (85-104) L 06/30/17 05:08 ABG HCO3 17 mEq/L (21-27) L 06/30/17 05:08 ABG Total CO2 18 mEq/L (20-26) L 06/30/17 05:08 ABG O2 Saturation 93 % (95-98) L 06/30/17 05:08 ABG Base Excess -8 mEq/L (-2 to 3) L 06/30/17 05:08 VBG pH 7.27 pH Units (7.32-7.42) L 06/30/17 04:21 VBG pO2 81 mmHg (25-50) H 06/29/17 12:49 VBG HCO3 17 mEq/L (21-27) L 06/29/17 12:49 Chloride 112 mEq/L (98-107) H 06/30/17 04:05 Carbon Dioxide 17 mEq/L (23-29) L 06/30/17 04:05 BUN 45 mg/dL (8-23) H 06/30/17 04:05 Creatinine 2.09 mg/dL (0.60-1.20) H 06/30/17 04:05 Est GFR ( Amer) 28 (> 60) L 06/30/17 04:05 Est GFR (Non-Af Amer) 23 (> 60) L 06/30/17 04:05 Calculated Osmolality 304 (280-300) H 06/30/17 04:05 Lactic Acid 3.1 mmol/L (0.5-2.2) H 06/29/17 20:13 Calcium 7.3 mg/dL (8.6-10.3) L 06/30/17 04:05 Venous Ioniz Calcium 1.00 mmol/L (1.15-1.35) L 06/30/17 04:21 Phosphorus 4.9 mg/dL (2.7-4.5) H 06/30/17 04:05 Total Bilirubin 1.8 mg/dL (0.3-1.0) H 06/29/17 12:30 Direct Bilirubin 0.6 mg/dL (0.0-0.2) H 06/29/17 12:30 AST 56 Units/L (13-39) H 06/29/17 12:30 Alkaline Phosphatase 135 Units/L (34-104) H 06/29/17 12:30 Creatine Kinase 625 Units/L (30-223) H 06/29/17 12:30 Serum Total Protein 5.2 g/dL (6.4-8.9) L 06/29/17 12:30 Albumin 2.7 g/dL (3.5-5.7) L 06/29/17 12:30 Urine Clarity Cloudy (Clear) A 06/28/17 17:50 Urine Protein 30 mg/dL (Neg-Trace) H 06/28/17 17:50 Urine Ketones Trace mg/dL (Negative) H 06/28/17 17:50 Urine Blood Moderate (Negative) H 06/28/17 17:50 Urine Nitrite Positive (Negative) A 06/28/17 17:50 Ur Leukocyte Esterase Moderate (Negative) H 06/28/17 17:50 Urine Microscopic RBC 3-5 per hpf (0-3) H 06/28/17 17:50 Urine Microscopic WBC 50-100 per hpf (0-3) H 06/28/17 17:50 Ur Squamous Epith Cells Moderate per lpf (None-Few) H 06/28/17 17:50 Urine Bacteria Many per hpf (None-Few) H 06/28/17 17:50 Ur Culture Indicated? YES (NO) A 06/28/17 17:50 Enterobacteriac sp PCR DETECTED (Not Detect) A 06/28/17 16:03 Proteus species (PCR) DETECTED (Not Detect) A 06/28/17 16:03 - Clinical Findings Intake & Output: Intake & Output 06/29/17 06/30/17 06/30/17 23:59 07:59 15:59 Intake Total 1540 / 1540 60 / 60 20 Output Total 500 / 500 675 / 675 400 / 400 Balance 1040 / 1040 -615 / -615 -380 / -380 Weight 100.1 kg - VTE Documentation of Mechanical Device: Intermittent pneumatic compression device Consult Discharge Plan - Plan Referrals: Reyes,Linda Rodriguez [employer] [Primary Care Provider] - <Marco Baron - Last Filed: 06/30/17 23:04> Date of Encounter: 06/30/17 Objective PUL Vital signs: Last Vital Signs Temp 98.1 F 06/30/17 19:40 Pulse 99 06/30/17 20:00 Resp 19 06/30/17 21:27 BP 143/85 06/30/17 20:00 Pulse Ox 93 06/30/17 21:27 Results - Laboratory Findings CBC and BMP: 06/30/17 04:05 06/30/17 04:05 ABG ABG pH 7.35 pH Units (7.32-7.45) 06/30/17 05:08 ABG pCO2 31 mmHg (35-45) L 06/30/17 05:08 ABG pO2 71 mmHg (85-104) L 06/30/17 05:08 ABG O2 Saturation 93 % (95-98) L 06/30/17 05:08 PT/INR, D-dimer PT 13.0 Seconds (9.4-12.1) H 06/30/17 09:40 D-Dimer 38766 ng/mLFEU (0-500) H 06/30/17 09:40 Abnormal lab findings: Abnormal lab results WBC 29.6 K/mcL (4.3-11.1) H 06/30/17 04:05 RBC 3.50 M/mcL (3.82-4.97) L 06/30/17 04:05 Hgb 10.2 g/dL (11.5-15.4) L 06/30/17 04:05 Hct 31.5 % (35.3-44.9) L 06/30/17 04:05 RDW 14.6 % (11.5-14.5) H 06/30/17 04:05 Plt Count 45 K/mcL (140-400) L 06/30/17 04:05 Band Neutrophils % 34.0 % (0-4) H 06/29/17 11:42 Metamyelocytes % 4.0 % (0) H 06/29/17 11:42 Myelocytes % 2.0 % (0) H 06/29/17 11:42 Neutrophils # 27.2 K/mcL (1.6-8.9) H 06/30/17 04:05 Nucleated RBCs/100 WBC 0.1 /100 WBC (0) H 06/30/17 04:05 Toxic Granulation Present (Not Present) A 06/29/17 11:42 Toxic Vacuolation Present (Not Present) A 06/29/17 11:42 Dohle Bodies Present (Not Present) A 06/29/17 11:42 Platelet Estimate Decreased (Normal) L 06/30/17 04:05 Immature Plt Fraction 9.4 % (1.1-6.1) H 06/29/17 11:42 PT 13.0 Seconds (9.4-12.1) H 06/30/17 09:40 Fibrinogen 568 mg/dL (169-393) H 06/30/17 09:40 D-Dimer 79513 ng/mLFEU (0-500) H 06/30/17 09:40 ABG pCO2 31 mmHg (35-45) L 06/30/17 05:08 ABG pO2 71 mmHg (85-104) L 06/30/17 05:08 ABG HCO3 17 mEq/L (21-27) L 06/30/17 05:08 ABG Total CO2 18 mEq/L (20-26) L 06/30/17 05:08 ABG O2 Saturation 93 % (95-98) L 06/30/17 05:08 ABG Base Excess -8 mEq/L (-2 to 3) L 06/30/17 05:08 VBG pH 7.27 pH Units (7.32-7.42) L 06/30/17 04:21 VBG pO2 81 mmHg (25-50) H 06/29/17 12:49 VBG HCO3 17 mEq/L (21-27) L 06/29/17 12:49 Chloride 112 mEq/L (98-107) H 06/30/17 04:05 Carbon Dioxide 17 mEq/L (23-29) L 06/30/17 04:05 BUN 45 mg/dL (8-23) H 06/30/17 04:05 Creatinine 2.09 mg/dL (0.60-1.20) H 06/30/17 04:05 Est GFR ( Amer) 28 (> 60) L 06/30/17 04:05 Est GFR (Non-Af Amer) 23 (> 60) L 06/30/17 04:05 POC Glucose 104 (58-89) H 06/30/17 17:52 Calculated Osmolality 304 (280-300) H 06/30/17 04:05 Lactic Acid 3.1 mmol/L (0.5-2.2) H 06/29/17 20:13 Calcium 7.3 mg/dL (8.6-10.3) L 06/30/17 04:05 Venous Ioniz Calcium 1.00 mmol/L (1.15-1.35) L 06/30/17 04:21 Phosphorus 4.9 mg/dL (2.7-4.5) H 06/30/17 04:05 Total Bilirubin 1.8 mg/dL (0.3-1.0) H 06/29/17 12:30 Direct Bilirubin 0.6 mg/dL (0.0-0.2) H 06/29/17 12:30 AST 56 Units/L (13-39) H 06/29/17 12:30 Alkaline Phosphatase 135 Units/L (34-104) H 06/29/17 12:30 Creatine Kinase 625 Units/L (30-223) H 06/29/17 12:30 Serum Total Protein 5.2 g/dL (6.4-8.9) L 06/29/17 12:30 Albumin 2.7 g/dL (3.5-5.7) L 06/29/17 12:30 Urine Clarity Cloudy (Clear) A 06/28/17 17:50 Urine Protein 30 mg/dL (Neg-Trace) H 06/28/17 17:50 Urine Ketones Trace mg/dL (Negative) H 06/28/17 17:50 Urine Blood Moderate (Negative) H 06/28/17 17:50 Urine Nitrite Positive (Negative) A 06/28/17 17:50 Ur Leukocyte Esterase Moderate (Negative) H 06/28/17 17:50 Urine Microscopic RBC 3-5 per hpf (0-3) H 06/28/17 17:50 Urine Microscopic WBC 50-100 per hpf (0-3) H 06/28/17 17:50 Ur Squamous Epith Cells Moderate per lpf (None-Few) H 06/28/17 17:50 Urine Bacteria Many per hpf (None-Few) H 06/28/17 17:50 Ur Culture Indicated? YES (NO) A 06/28/17 17:50 Enterobacteriac sp PCR DETECTED (Not Detect) A 06/28/17 16:03 Proteus species (PCR) DETECTED (Not Detect) A 06/28/17 16:03 - Clinical Findings Intake & Output: Intake & Output 06/30/17 06/30/17 06/30/17 07:59 15:59 23:59 Intake Total 760 / 760 Output Total 550 / 950 300 / 300 Balance -550 / -930 460 / 460 - Attending Attestation I saw the patient with the resident agree with History and Physical exam findings. 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 A x3 and fully commands NECK : No JVD appreciated Pulmonary : Patient has hypoxic respiratory failure most likely due to fluid overlaod gas exchange stable now patient is on RA Cardiac : hypotensive most likely due to septic shock after instrumentation of the ureter , placed central line access for anticipated vasopressor use , patient is responded with fluid resuscitation vasporessor was not started Nutrition/GI: Patient is NPO PPI prophylaxis Renal : Labs and output reviewed , patient had urinary retention secondary to renal calculus after instrumentation the patient went into septic shock . ID : Nielsen culture , blood culture growing proteus patient is on broad spectrum antibiotics will de escalate soon.. Heme onc : worsening thrombocytopeia may be signs of sepsis , increased fibrinogen and D -dimer Disposition : Can be treansferred to medical telemetry as she was stable whole day . Code status: DNRA-DNI Family/POA: and Sister.
[2017-06-30] MEDS ORDERED: Nitroglycerin 0.4 MG TAB.SUBL SL PRN (14:08)
[2017-06-30] MEDS ORDERED: Ondansetron 4 MG/2 ML VIAL IVP PRN (14:08)
[2017-06-30] MEDS ORDERED: D5% in Water 1,000 ML IVC PRN (14:08)
[2017-06-30] MEDS ORDERED: *HR* Dextrose 50 % in Water (Syg) 50 ML SYRINGE IVP PRN (14:08)
[2017-06-30] MEDS ORDERED: *HR* Promethazine 25 MG/ML VIAL IVP PRN (14:08)
[2017-06-30] MEDS ORDERED: Potassium Phosphate 44 MEQ in 0.9 % Sodium Chloride 250 ML IVPB PRN (14:08)
[2017-06-30] MEDS ORDERED: Potassium Chloride 40 MEQ/200 ML BAG IVPB PRN (14:08)
[2017-06-30] MEDS ORDERED: Dextrose Gel 15 GM PO PRN ×2 (14:08)
[2017-07-01] MEDS: Ipratropium/Albuterol Neb 3 ML IH SCH ×4 (03:37→21:06)
[2017-07-01 03:51] LABS: Eosinophils % 0.3 %; Hemoglobin 10.2 g/dL (11.5-15.4); Monocytes % 3.7 %; Red Cell Distribution Width 14.6 % (11.5-14.5)
[2017-07-01 03:52] LABS: Basophils % 0.1 %; Eosinophils # 0.1 K/mcL (0.0-0.6); Immature Granulocytes % 1.2 % (0-4); Lymphocytes # 1.6 K/mcL (0.6-4.6); Lymphocytes % 5.3 %; Mean Corpuscular HGB Conc 32.9 g/dL (31.6-35.5); Mean Corpuscular Hemoglobin 28.7 pg (28.0-33.3); Mean Corpuscular Volume 87.3 fL (83.0-100.0); Mean Platelet Volume 11.3 fL (9.4-12.4); Monocytes # 1.1 K/mcL (0.0-1.3); Red Blood Count 3.55 M/mcL (3.82-4.97); Segmented Neutrophils % 89.4 %
[2017-07-01 04:14] LABS: VBG Ionized Calcium 1.14 mmol/L (1.15-1.35); VBG PH 7.36 pH Units (7.32-7.42)
[2017-07-01 04:18] LABS: Calcium 7.9 mg/dL (8.6-10.3); Magnesium 2.4 mg/dL (1.6-2.6); Phosphorous 2.6 mg/dL (2.7-4.5); Potassium 3.8 mEq/L (3.5-5.1)
[2017-07-01 04:20] LABS: VBG Ionized Calcium 1.16 mmol/L (1.15-1.35); VBG PH 7.37 pH Units (7.32-7.42)
[2017-07-01] MEDS: Insulin LISPRO 300 UNITS/3 ML VIAL SQ SCH ×3 (04:36→18:21)
[2017-07-01 05:02] LABS: Platelet Count 50 K/mcL (140-400)
[2017-07-01 05:05] LABS: Platelet Estimate Decreased (Normal)
[2017-07-01 08:52] LABS: INR 1.1; Prothrombin Time 11.5 Seconds (9.4-12.1)
[2017-07-01] MEDS: Aspirin 81 MG TAB.CHEW PO SCH (08:53)
[2017-07-01] MEDS: Cefepime HCl 2,000 MG in Water for inj. (sterile) 20 ML IVP SCH (08:54)
--- NOTE | 2017-07-01 08:54 | Pulmonology Progress Note ---
Date of Encounter: 07/01/17 Time of Encounter: 08:45 Assessment and Plan (1) Septic shock Current Visit: Yes Status: Acute Patient septic shock resolved , etiology is due to obstructive uropathy with lead to bactremia lead to septic shock , now shock resolved there is no clinical and biochemical evidence of tissue hypoperfusion. (2) MORRIS (acute kidney injury) Current Visit: Yes Status: Acute Slowly getting better . (3) Pneumonia Current Visit: No Status: Suspected Will continue the broad spectrum antibiotics , there is no V/Q mismatch now patient is on room air. Qualifiers: Pneumonia type: due to unspecified organism Laterality: right Lung location: lower lobe of lung Qualified Code(s): J18.1 - Lobar pneumonia, unspecified organism (4) UTI (urinary tract infection) Current Visit: No Status: Acute Patient has ESBL producing proteus , there is another organism growing most likely klebsiella which is pansensitive .Patient has persistent bactremia despite broad spectrum antibiotics found the organism was resistant to Cefepime will change to meropenem as it is a ESBL producing organism Qualifiers: Urinary tract infection type: site unspecified Hematuria presence: with hematuria Qualified Code(s): N39.0 - Urinary tract infection, site not specified; R31.9 - Hematuria, unspecified (5) Gram-negative bacteremia Current Visit: No Status: Acute ESBL producing proteus changed to meropenem source is urinary tract infection . Subjective Principal diagnosis: Urosepsis Interval history: Patient is feeling lot better , was ambulated little bit felt weak .Denies any abdominal pain Objective PUL Vital signs: Last Vital Signs Temp 97.8 F 07/01/17 08:00 Pulse 92 07/01/17 08:00 Resp 22 07/01/17 08:00 BP 141/82 07/01/17 08:00 Pulse Ox 93 07/01/17 08:00 Auscultation: bilateral: diminished breath sounds Results - Laboratory Findings CBC and BMP: 07/01/17 03:40 07/01/17 15:12 ABG ABG pH 7.35 pH Units (7.32-7.45) 06/30/17 05:08 ABG pCO2 31 mmHg (35-45) L 06/30/17 05:08 ABG pO2 71 mmHg (85-104) L 06/30/17 05:08 ABG O2 Saturation 93 % (95-98) L 06/30/17 05:08 PT/INR, D-dimer PT 13.0 Seconds (9.4-12.1) H 06/30/17 09:40 D-Dimer 88665 ng/mLFEU (0-500) H 06/30/17 09:40 Abnormal lab findings: Abnormal lab results WBC 30.2 K/mcL (4.3-11.1) H* 07/01/17 03:40 RBC 3.55 M/mcL (3.82-4.97) L 07/01/17 03:40 Hgb 10.2 g/dL (11.5-15.4) L 07/01/17 03:40 Hct 31.0 % (35.3-44.9) L 07/01/17 03:40 RDW 14.6 % (11.5-14.5) H 07/01/17 03:40 Plt Count 50 K/mcL (140-400) L 07/01/17 03:40 Band Neutrophils % 34.0 % (0-4) H 06/29/17 11:42 Metamyelocytes % 4.0 % (0) H 06/29/17 11:42 Myelocytes % 2.0 % (0) H 06/29/17 11:42 Neutrophils # 27.0 K/mcL (1.6-8.9) H 07/01/17 03:40 Nucleated RBCs/100 WBC 0.1 /100 WBC (0) H 06/30/17 04:05 Toxic Granulation Present (Not Present) A 06/29/17 11:42 Toxic Vacuolation Present (Not Present) A 06/29/17 11:42 Dohle Bodies Present (Not Present) A 06/29/17 11:42 Platelet Estimate Decreased (Normal) L 07/01/17 03:40 Immature Plt Fraction 9.4 % (1.1-6.1) H 06/29/17 11:42 PT 13.0 Seconds (9.4-12.1) H 06/30/17 09:40 Fibrinogen 568 mg/dL (169-393) H 06/30/17 09:40 D-Dimer 03239 ng/mLFEU (0-500) H 06/30/17 09:40 ABG pCO2 31 mmHg (35-45) L 06/30/17 05:08 ABG pO2 71 mmHg (85-104) L 06/30/17 05:08 ABG HCO3 17 mEq/L (21-27) L 06/30/17 05:08 ABG Total CO2 18 mEq/L (20-26) L 06/30/17 05:08 ABG O2 Saturation 93 % (95-98) L 06/30/17 05:08 ABG Base Excess -8 mEq/L (-2 to 3) L 06/30/17 05:08 VBG pO2 81 mmHg (25-50) H 06/29/17 12:49 VBG HCO3 17 mEq/L (21-27) L 06/29/17 12:49 Chloride 114 mEq/L (98-107) H 07/01/17 03:40 Carbon Dioxide 20 mEq/L (23-29) L 07/01/17 03:40 BUN 43 mg/dL (8-23) H 07/01/17 03:40 Creatinine 1.28 mg/dL (0.60-1.20) H 07/01/17 03:40 Est GFR ( Amer) 50 (> 60) L 07/01/17 03:40 Est GFR (Non-Af Amer) 41 (> 60) L 07/01/17 03:40 BUN/Creatinine Ratio 34 (6-26) H 07/01/17 03:40 POC Glucose 94 (58-89) H 06/30/17 23:30 Calculated Osmolality 301 (280-300) H 07/01/17 03:40 Lactic Acid 3.1 mmol/L (0.5-2.2) H 06/29/17 20:13 Calcium 7.9 mg/dL (8.6-10.3) L 07/01/17 03:40 Phosphorus 2.6 mg/dL (2.7-4.5) L 07/01/17 03:40 Total Bilirubin 1.8 mg/dL (0.3-1.0) H 06/29/17 12:30 Direct Bilirubin 0.6 mg/dL (0.0-0.2) H 06/29/17 12:30 AST 56 Units/L (13-39) H 06/29/17 12:30 Alkaline Phosphatase 135 Units/L (34-104) H 06/29/17 12:30 Creatine Kinase 625 Units/L (30-223) H 06/29/17 12:30 Serum Total Protein 5.2 g/dL (6.4-8.9) L 06/29/17 12:30 Albumin 2.7 g/dL (3.5-5.7) L 06/29/17 12:30 Urine Clarity Cloudy (Clear) A 06/28/17 17:50 Urine Protein 30 mg/dL (Neg-Trace) H 06/28/17 17:50 Urine Ketones Trace mg/dL (Negative) H 06/28/17 17:50 Urine Blood Moderate (Negative) H 06/28/17 17:50 Urine Nitrite Positive (Negative) A 06/28/17 17:50 Ur Leukocyte Esterase Moderate (Negative) H 06/28/17 17:50 Urine Microscopic RBC 3-5 per hpf (0-3) H 06/28/17 17:50 Urine Microscopic WBC 50-100 per hpf (0-3) H 06/28/17 17:50 Ur Squamous Epith Cells Moderate per lpf (None-Few) H 06/28/17 17:50 Urine Bacteria Many per hpf (None-Few) H 06/28/17 17:50 Ur Culture Indicated? YES (NO) A 06/28/17 17:50 Enterobacteriac sp PCR DETECTED (Not Detect) A 06/28/17 16:03 Proteus species (PCR) DETECTED (Not Detect) A 06/28/17 16:03 - Clinical Findings Intake & Output: Intake & Output 06/30/17 07/01/17 07/01/17 23:59 07:59 15:59 Intake Total 760 / 760 Output Total 600 / 600 225 / 225 Balance 160 / 160 -225 / -225 Weight 98.6 kg - VTE Documentation of Mechanical Device: Intermittent pneumatic compression device Consult Discharge Plan - Plan Referrals: Eric,Linda Rodriguez CNP [Primary Care Provider] -
[2017-07-01] MEDS: Pantoprazole 40 MG VIAL IVP SCH (08:56)
--- NOTE | 2017-07-01 09:43 | Urology Progress Note ---
Date of Encounter: 07/01/17 Time of Encounter: 09:40 - Assessment and Plan (1) Urolithiasis Current Visit: Yes Status: Acute Assessment and plan: Status post cystoscopy and right ureteral stent placement, postop day #2. Pulmonology will plan on obtaining a CT scan of pelvis to confirm good stent placement and no evidence of renal abscess. Urology will continue to follow along. Continue Alegria catheter for now. Qualifiers: Urinary calculus location: other lower urinary tract location Qualified Code(s): N21.8 - Other lower urinary tract calculus Progress Note Narrative: She is feeling better today. Her labs show a persistent leukocytosis and she has positive blood cultures. Urine production has been good. She says she feels well. Objective Initial Vital Signs Temp Pulse Resp BP Pulse Ox 99.1 F 104 20 103/65 88 06/28/17 13:56 06/28/17 13:56 06/28/17 13:56 06/28/17 13:56 06/28/17 13:56 - General physical appearance Present: well developed, well nourished, no distress - Respiratory Present: normal respiratory effort - Abdomen Present: soft - Genitourinary Urine Appearance: Present: Clear - Labs 07/01/17 03:40 07/01/17 03:40 Diabetes panel 07/01/17 Range/Units 03:40 Sodium 140 (136-145) mEq/L Potassium 3.8 (3.5-5.1) mEq/L Chloride 114 H (98-107) mEq/L Carbon Dioxide 20 L (23-29) mEq/L BUN 43 H (8-23) mg/dL Creatinine 1.28 H (0.60-1.20) mg/dL Glucose 102 (70-105) mg/dL Calcium 7.9 L (8.6-10.3) mg/dL Calcium panel 07/01/17 Range/Units 03:40 Calcium 7.9 L (8.6-10.3) mg/dL Phosphorus 2.6 L (2.7-4.5) mg/dL Pituitary panel 07/01/17 Range/Units 03:40 Sodium 140 (136-145) mEq/L Potassium 3.8 (3.5-5.1) mEq/L Chloride 114 H (98-107) mEq/L Carbon Dioxide 20 L (23-29) mEq/L BUN 43 H (8-23) mg/dL Creatinine 1.28 H (0.60-1.20) mg/dL Glucose 102 (70-105) mg/dL Calcium 7.9 L (8.6-10.3) mg/dL Adrenal panel 07/01/17 Range/Units 03:40 Sodium 140 (136-145) mEq/L Potassium 3.8 (3.5-5.1) mEq/L Chloride 114 H (98-107) mEq/L Carbon Dioxide 20 L (23-29) mEq/L BUN 43 H (8-23) mg/dL Creatinine 1.28 H (0.60-1.20) mg/dL Glucose 102 (70-105) mg/dL Calcium 7.9 L (8.6-10.3) mg/dL - VTE Documentation of Mechanical Device: Intermittent pneumatic compression device Consult Discharge Plan - Plan Referrals: Linda Reyes CNP [Primary Care Provider] -
[2017-07-01] MEDS ORDERED: Levofloxacin 750 MG/150 ML 750 MG/150 ML BAG IVPB SCH (10:00)
[2017-07-01] MEDS: Meropenem 1,000 MG in Water for inj. (sterile) 10 ML IVP SCH ×2 (10:58→18:21)
[2017-07-01 16:34] LABS: Alanine Aminotransferase 36 Units/L (7-52); Albumin 2.5 g/dL (3.5-5.7); Albumin/Globulin Ratio 0.9 (1.1-2.2); Alkaline Phosphatase 132 Units/L (34-104); Aspartate Amino Transferase 31 Units/L (13-39); BUN/Creatinine Ratio 38 (6-26); Bilirubin,Total 1.2 mg/dL (0.3-1.0); Blood Urea Nitrogen 39 mg/dL (8-23); Carbon Dioxide 24 mEq/L (23-29); Chloride 115 mEq/L (98-107); Globulin 2.9 g/dL (2.4-3.5); Glucose 137 mg/dL (70-105); Osmolality,Calculated 306 (280-300); Potassium 3.9 mEq/L (3.5-5.1); Sodium 142 mEq/L (136-145); Total Protein 5.4 g/dL (6.4-8.9); eGFR For African Americans > 60 (> 60); eGFR For Non-African Americans 54 (> 60)
[2017-07-02] MEDS: Insulin LISPRO 300 UNITS/3 ML VIAL SQ SCH ×2 (00:42→15:02)
[2017-07-02] MEDS: Meropenem 1,000 MG in Water for inj. (sterile) 10 ML IVP SCH ×3 (02:10→18:49)
[2017-07-02] MEDS: Ipratropium/Albuterol Neb 3 ML IH SCH ×4 (04:46→21:53)
[2017-07-02 07:01] LABS: Hemoglobin 10.6 g/dL (11.5-15.4)
[2017-07-02 07:03] LABS: Hematocrit 31.8 % (35.3-44.9); Immature Platelets 8.2 % (1.1-6.1); Mean Corpuscular HGB Conc 33.3 g/dL (31.6-35.5); Mean Corpuscular Hemoglobin 29.1 pg (28.0-33.3); Mean Corpuscular Volume 87.4 fL (83.0-100.0); Mean Platelet Volume 11.7 fL (9.4-12.4); Red Blood Count 3.64 M/mcL (3.82-4.97); Red Cell Distribution Width 14.6 % (11.5-14.5)
[2017-07-02 07:12] LABS: VBG HCO3 21 mEq/L (21-27); VBG Ionized Calcium 1.11 mmol/L (1.15-1.35); VBG PCO2 30 mmHg (41-51); VBG PH 7.46 pH Units (7.32-7.42); VBG PO2 114 mmHg (25-50)
[2017-07-02 07:15] LABS: Alanine Aminotransferase 29 Units/L (7-52); Albumin 2.5 g/dL (3.5-5.7); Alkaline Phosphatase 116 Units/L (34-104); Aspartate Amino Transferase 24 Units/L (13-39); BUN/Creatinine Ratio 38 (6-26); Bilirubin,Total 1.2 mg/dL (0.3-1.0); Blood Urea Nitrogen 30 mg/dL (8-23); Calcium 7.9 mg/dL (8.6-10.3); Carbon Dioxide 21 mEq/L (23-29); Chloride 113 mEq/L (98-107); Globulin 2.6 g/dL (2.4-3.5); Glucose 112 mg/dL (70-105); Magnesium 2.1 mg/dL (1.6-2.6); Osmolality,Calculated 297 (280-300); Phosphorous 2.3 mg/dL (2.7-4.5); Potassium 3.9 mEq/L (3.5-5.1); Sodium 140 mEq/L (136-145); Total Protein 5.1 g/dL (6.4-8.9); eGFR For African Americans > 60 (> 60); eGFR For Non-African Americans > 60 (> 60)
[2017-07-02 07:33] LABS: Platelet Count 60 K/mcL (140-400)
[2017-07-02 08:48] LABS: Lymphocytes # 1.8 K/mcL (0.6-4.6); Monocytes # 1.5 K/mcL (0.0-1.3); Neutrophils # 11.5 K/mcL (1.6-8.9); Platelet Estimate Decreased (Normal)
[2017-07-02] MEDS: Pantoprazole 40 MG VIAL IVP SCH (09:24)
[2017-07-02] MEDS: Aspirin 81 MG TAB.CHEW PO SCH (09:25)
--- NOTE | 2017-07-02 10:11 | Urology Progress Note ---
Date of Encounter: 07/02/17 Time of Encounter: 10:10 - Assessment and Plan (1) Urolithiasis Current Visit: Yes Status: Acute Assessment and plan: s/p right ureteral stent placement. Doing well. Cultures reviewed. She is on meropenem. Will likely need IV antibiotic upon discharge given sensitivities. 1. Okay to remove catheter whenever not needed per primary team. 2. Will plan for definitive stone removal as an outpatient. 3. Appreciate hospitalist support. Qualifiers: Urinary calculus location: other lower urinary tract location Qualified Code(s): N21.8 - Other lower urinary tract calculus Progress Note Narrative: Status post cystoscopy and right ureteral stent placement. Infection improving. Proteus growing out. She is on meropenem. Objective Initial Vital Signs Temp Pulse Resp BP Pulse Ox 99.1 F 104 20 103/65 88 06/28/17 13:56 06/28/17 13:56 06/28/17 13:56 06/28/17 13:56 06/28/17 13:56 - General physical appearance Present: well developed, well nourished, no distress - Respiratory Present: normal respiratory effort - Abdomen Present: soft - Genitourinary Urine Appearance: Present: Clear - Labs 07/02/17 06:40 07/02/17 06:40 Diabetes panel 07/01/17 07/02/17 Range/Units 15:12 06:40 Sodium 142 140 (136-145) mEq/L Potassium 3.9 3.9 (3.5-5.1) mEq/L Chloride 115 H 113 H (98-107) mEq/L Carbon Dioxide 24 21 L (23-29) mEq/L BUN 39 H 30 H (8-23) mg/dL Creatinine 1.02 0.80 (0.60-1.20) mg/dL Glucose 137 H 112 H (70-105) mg/dL Calcium 8.0 L 7.9 L (8.6-10.3) mg/dL AST 31 24 (13-39) Units/L ALT 36 29 (7-52) Units/L Alkaline Phosphatase 132 H 116 H (34-104) Units/L Albumin 2.5 L 2.5 L (3.5-5.7) g/dL Calcium panel 07/01/17 07/02/17 Range/Units 15:12 06:40 Calcium 8.0 L 7.9 L (8.6-10.3) mg/dL Phosphorus 2.3 L (2.7-4.5) mg/dL Albumin 2.5 L 2.5 L (3.5-5.7) g/dL Pituitary panel 07/01/17 07/02/17 Range/Units 15:12 06:40 Sodium 142 140 (136-145) mEq/L Potassium 3.9 3.9 (3.5-5.1) mEq/L Chloride 115 H 113 H (98-107) mEq/L Carbon Dioxide 24 21 L (23-29) mEq/L BUN 39 H 30 H (8-23) mg/dL Creatinine 1.02 0.80 (0.60-1.20) mg/dL Glucose 137 H 112 H (70-105) mg/dL Calcium 8.0 L 7.9 L (8.6-10.3) mg/dL Adrenal panel 07/01/17 07/02/17 Range/Units 15:12 06:40 Sodium 142 140 (136-145) mEq/L Potassium 3.9 3.9 (3.5-5.1) mEq/L Chloride 115 H 113 H (98-107) mEq/L Carbon Dioxide 24 21 L (23-29) mEq/L BUN 39 H 30 H (8-23) mg/dL Creatinine 1.02 0.80 (0.60-1.20) mg/dL Glucose 137 H 112 H (70-105) mg/dL Calcium 8.0 L 7.9 L (8.6-10.3) mg/dL Total Bilirubin 1.2 H 1.2 H (0.3-1.0) mg/dL AST 31 24 (13-39) Units/L ALT 36 29 (7-52) Units/L Alkaline Phosphatase 132 H 116 H (34-104) Units/L Albumin 2.5 L 2.5 L (3.5-5.7) g/dL - VTE Documentation of Mechanical Device: Intermittent pneumatic compression device Consult Discharge Plan - Plan Referrals: Linda Reyes, TAY [Primary Care Provider] -
[2017-07-02] MEDS: Levofloxacin 750 MG/150 ML 750 MG/150 ML BAG IVPB SCH (11:45)
--- NOTE | 2017-07-02 17:14 | Internal Med Progress Note ---
Date of Encounter: 07/02/17 Time of Encounter: 17:07 - Assessment and plan (1) Pneumonia Current Visit: No Status: Suspected Assessment and plan: Continue meropenem and levaquin. She is on 2 L of nasal oxygen. Qualifiers: Pneumonia type: due to unspecified organism Laterality: right Lung location: lower lobe of lung Qualified Code(s): J18.1 - Lobar pneumonia, unspecified organism (2) Pyelonephritis Current Visit: No Status: Acute Assessment and plan: Patient has UTI with proteus ESBL, Klebsiella She is currently on appropriate antibiotics with MEROPENEM for that. (3) Gram-negative bacteremia Current Visit: No Status: Acute Assessment and plan: Were repeat 2 sets of blood cultures in the morning to ensure clearance. Patient is currently on appropriate antibiotics according to sensitivities. Unfortunately patient is sensitive only to IV antibiotics. Will plan to DC patient IV antibiotics to complete course of treatment. (4) MORRIS (acute kidney injury) Current Visit: No Status: Resolved Assessment and plan: Resolved with hydration and improvement of hemodynamics. (5) Hydronephrosis Current Visit: Yes Status: Acute Assessment and plan: Obstructive bureaucracy with hydronephrosis resolved after uretral stent placement Qualifiers: Qualified Code(s): N13.30 - Unspecified hydronephrosis (6) Physical deconditioning Current Visit: Yes Status: Acute Assessment and plan: physical therapy physical therapy to see the patient - Subjective Interval history: Patient seen and examined. Patient has been afebrile the past 48 hours. Appetite not very good. Patient still very weak needs assistance with transfer - Constitutional Vitals: Temp Pulse Resp BP Pulse Ox 97.9 F 87 16 129/82 94 07/02/17 15:07 07/02/17 15:07 07/02/17 16:10 07/02/17 15:07 07/02/17 16:10 General appearance: Present: A&O X 3, answers questions appropriately Exam: Gen.: patient is alert oriented times 3 not in distress. Cardiac: normal S1 S2 no additional sounds chest: basal crackles abdomen: soft nontender nondistended normal bowel sounds Neuro: no focal deficits LE: 1+ swelling Internal Medicine: Result - Labs CBC & Chem 7: 07/02/17 06:40 07/02/17 06:40 Labs: Short CBC 07/02/17 Range/Units 06:40 WBC 14.8 H D (4.3-11.1) K/mcL Hgb 10.6 L (11.5-15.4) g/dL Hct 31.8 L (35.3-44.9) % Plt Count 60 L (140-400) K/mcL Neutrophils # 11.5 H (1.6-8.9) K/mcL BMP 07/02/17 06:40 Sodium 140 Potassium 3.9 Chloride 113 H Carbon Dioxide 21 L BUN 30 H Creatinine 0.80 Glucose 112 H Calcium 7.9 L Liver Function 07/02/17 Range/Units 06:40 Total Bilirubin 1.2 H (0.3-1.0) mg/dL AST 24 (13-39) Units/L ALT 29 (7-52) Units/L Alkaline Phosphatase 116 H (34-104) Units/L Albumin 2.5 L (3.5-5.7) g/dL - ABG Interpretation ABG results: ABG ABG pH 7.35 pH Units (7.32-7.45) 06/30/17 05:08 ABG pCO2 31 mmHg (35-45) L 06/30/17 05:08 ABG pO2 71 mmHg (85-104) L 06/30/17 05:08 ABG O2 Saturation 93 % (95-98) L 06/30/17 05:08 PT/INR, D-dimer PT 11.5 Seconds (9.4-12.1) 07/01/17 08:40 D-Dimer 10110 ng/mLFEU (0-500) H 06/30/17 09:40 - VTE Documentation of Mechanical Device: Intermittent pneumatic compression device Consult Discharge Plan - Plan Referrals: Linda Reyes, NIGHT ASSISTANT [Primary Care Provider] -
[2017-07-03] MEDS: Insulin LISPRO 300 UNITS/3 ML VIAL SQ SCH ×4 (01:59→09:50)
[2017-07-03] MEDS: Meropenem 1,000 MG in Water for inj. (sterile) 10 ML IVP SCH ×3 (02:00→18:05)
[2017-07-03] MEDS: Ipratropium/Albuterol Neb 3 ML IH SCH ×4 (03:30→22:51)
[2017-07-03 03:43] LABS: Nucleated Red Blood Cells 0.2 /100 WBC (0)
[2017-07-03 03:44] LABS: Hematocrit 32.6 % (35.3-44.9); Hemoglobin 10.5 g/dL (11.5-15.4); Immature Platelets 11.7 % (1.1-6.1); Mean Corpuscular HGB Conc 32.2 g/dL (31.6-35.5); Mean Corpuscular Hemoglobin 28.2 pg (28.0-33.3); Mean Corpuscular Volume 87.6 fL (83.0-100.0); Red Blood Count 3.72 M/mcL (3.82-4.97); Red Cell Distribution Width 14.4 % (11.5-14.5)
[2017-07-03 03:49] LABS: Platelet Count 75 K/mcL (140-400)
[2017-07-03 03:58] LABS: VBG Ionized Calcium 1.07 mmol/L (1.15-1.35)
[2017-07-03 04:12] LABS: BUN/Creatinine Ratio 31 (6-26); Blood Urea Nitrogen 23 mg/dL (8-23); Calcium 8.2 mg/dL (8.6-10.3); Carbon Dioxide 24 mEq/L (23-29); Chloride 111 mEq/L (98-107); Glucose 128 mg/dL (70-105); Magnesium 1.8 mg/dL (1.6-2.6); Osmolality,Calculated 297 (280-300); Phosphorous 3.6 mg/dL (2.7-4.5); Sodium 141 mEq/L (136-145); eGFR For African Americans > 60 (> 60); eGFR For Non-African Americans > 60 (> 60)
[2017-07-03 04:13] LABS: Lymphocytes # 2.5 K/mcL (0.6-4.6); Monocytes # 1.8 K/mcL (0.0-1.3); Neutrophils # 7.8 K/mcL (1.6-8.9)
[2017-07-03 04:14] LABS: Platelet Estimate Decreased (Normal); Reactive Lymphocytes Present (Not Present)
[2017-07-03] MEDS: Pantoprazole 40 MG VIAL IVP SCH (09:51)
[2017-07-03] MEDS: Aspirin 81 MG TAB.CHEW PO SCH (09:51)
[2017-07-03] MEDS: Levofloxacin 750 MG/150 ML 750 MG/150 ML BAG IVPB SCH (09:52)
--- NOTE | 2017-07-03 10:21 | Urology Progress Note ---
Date of Encounter: 07/03/17 Time of Encounter: 10:19 - Assessment and Plan (1) Urolithiasis Current Visit: Yes Status: Acute Assessment and plan: Status post cystoscopy and right ureteral stent placement. Continue IV antibiotic therapy. We can consider ertapenem for outpatient treatment as it is a once a day dose. We'll arrange for ureteroscopy as an outpatient. Qualifiers: Urinary calculus location: other lower urinary tract location Qualified Code(s): N21.8 - Other lower urinary tract calculus Progress Note Narrative: 67-year-old woman with UTI, sepsis, and a right ureteral stone status post stent placement on the right side. She is doing much better today. IV antibiotics have improved her condition. She feels well. Urine culture and blood cultures have grown out Proteus which is not sensitive to any oral antibiotic. Objective Initial Vital Signs Temp Pulse Resp BP Pulse Ox 99.1 F 104 20 103/65 88 06/28/17 13:56 06/28/17 13:56 06/28/17 13:56 06/28/17 13:56 06/28/17 13:56 - General physical appearance Present: well developed, well nourished, no distress - Respiratory Present: normal respiratory effort - Abdomen Present: soft - Genitourinary Urine Appearance: Present: Clear - Labs 07/03/17 03:28 07/03/17 03:28 Diabetes panel 07/03/17 Range/Units 03:28 Sodium 141 (136-145) mEq/L Potassium 4.0 (3.5-5.1) mEq/L Chloride 111 H (98-107) mEq/L Carbon Dioxide 24 (23-29) mEq/L BUN 23 (8-23) mg/dL Creatinine 0.75 (0.60-1.20) mg/dL Glucose 128 H (70-105) mg/dL Calcium 8.2 L (8.6-10.3) mg/dL Calcium panel 07/03/17 Range/Units 03:28 Calcium 8.2 L (8.6-10.3) mg/dL Phosphorus 3.6 (2.7-4.5) mg/dL Pituitary panel 07/03/17 Range/Units 03:28 Sodium 141 (136-145) mEq/L Potassium 4.0 (3.5-5.1) mEq/L Chloride 111 H (98-107) mEq/L Carbon Dioxide 24 (23-29) mEq/L BUN 23 (8-23) mg/dL Creatinine 0.75 (0.60-1.20) mg/dL Glucose 128 H (70-105) mg/dL Calcium 8.2 L (8.6-10.3) mg/dL Adrenal panel 07/03/17 Range/Units 03:28 Sodium 141 (136-145) mEq/L Potassium 4.0 (3.5-5.1) mEq/L Chloride 111 H (98-107) mEq/L Carbon Dioxide 24 (23-29) mEq/L BUN 23 (8-23) mg/dL Creatinine 0.75 (0.60-1.20) mg/dL Glucose 128 H (70-105) mg/dL Calcium 8.2 L (8.6-10.3) mg/dL - VTE Documentation of Mechanical Device: Intermittent pneumatic compression device Consult Discharge Plan - Plan Referrals: Linda Reyes CNP [Primary Care Provider] -
[2017-07-03] MEDS ORDERED: *HR* Heparin 5,000 UNIT/ML VIAL SQ SCH (14:00)
[2017-07-03] MEDS: *HR* Heparin 5,000 UNIT/ML VIAL SQ SCH ×3 (14:13→21:34)
[2017-07-03] MEDS ORDERED: Furosemide 40 MG/4 ML VIAL IVP SCH (18:15)
--- NOTE | 2017-07-03 18:17 | Internal Med Progress Note ---
Date of Encounter: 07/03/17 Time of Encounter: 18:15 - Assessment and plan (1) Pneumonia Current Visit: No Status: Suspected Assessment and plan: Continue meropenem and levaquin. She is on 2 L of nasal oxygen. Qualifiers: Pneumonia type: due to unspecified organism Laterality: right Lung location: lower lobe of lung Qualified Code(s): J18.1 - Lobar pneumonia, unspecified organism (2) Pyelonephritis Current Visit: No Status: Acute Assessment and plan: Patient has UTI with proteus ESBL, Klebsiella She is currently on appropriate antibiotics with MEROPENEM for that. Tentatively will discharge the patient to complete two-week course of antibiotics. She will receive antibiotics through powerglide at [facility] (3) Gram-negative bacteremia Current Visit: No Status: Acute (4) MORRIS (acute kidney injury) Current Visit: No Status: Resolved Assessment and plan: Resolved with hydration and improvement of hemodynamics. (5) Hydronephrosis Current Visit: Yes Status: Acute Assessment and plan: Obstructive uropathy with hydronephrosis resolved after uretral stent placement Qualifiers: Qualified Code(s): N13.30 - Unspecified hydronephrosis (6) Physical deconditioning Current Visit: Yes Status: Acute Assessment and plan: physical therapy physical therapy to see the patient (7) Diastolic CHF Current Visit: Yes Status: Acute Assessment and plan: Start the patient on Lasix 40 mg IV daily. Qualifiers: Qualified Code(s): I50.30 - Unspecified diastolic (congestive) heart failure (8) Elevated d-dimer Current Visit: Yes Status: Acute Assessment and plan: CT angiogram shows no evidence of pulmonary embolism. - Subjective Interval history: Patient seen and examined. Patient has been afebrile the past 48 hours. Appears to be short of breath with conversation. Still has not got out of bed because of the femoral line. Femoral line and Alegria catheter will be removed to increase activity. - Constitutional Vitals: Temp Pulse Resp BP Pulse Ox 97.6 F 98 18 149/86 95 07/03/17 16:27 07/03/17 16:27 07/03/17 16:27 07/03/17 16:27 07/03/17 16:27 General appearance: Present: A&O X 3, answers questions appropriately Exam: Gen.: patient is alert oriented times 3 not in distress. Cardiac: normal S1 S2 no additional sounds or murmurs chest: crackles in bases abdomen: soft nontender nondistended normal bowel sounds neuro: no focal deficit LE: 1+ swelling Internal Medicine: Result - Labs CBC & Chem 7: 07/03/17 03:28 07/03/17 03:28 Labs: Short CBC 07/03/17 Range/Units 03:28 WBC 12.6 H (4.3-11.1) K/mcL Hgb 10.5 L (11.5-15.4) g/dL Hct 32.6 L (35.3-44.9) % Plt Count 75 L (140-400) K/mcL Neutrophils # 7.8 (1.6-8.9) K/mcL BMP 07/03/17 03:28 Sodium 141 Potassium 4.0 Chloride 111 H Carbon Dioxide 24 BUN 23 Creatinine 0.75 Glucose 128 H Calcium 8.2 L - ABG Interpretation ABG results: ABG ABG pH 7.35 pH Units (7.32-7.45) 06/30/17 05:08 ABG pCO2 31 mmHg (35-45) L 06/30/17 05:08 ABG pO2 71 mmHg (85-104) L 06/30/17 05:08 ABG O2 Saturation 93 % (95-98) L 06/30/17 05:08 PT/INR, D-dimer PT 11.5 Seconds (9.4-12.1) 07/01/17 08:40 D-Dimer [id number] ng/mLFEU (0-500) H 06/30/17 09:40 - Impressions Impressions Chest CTA 07/03/17 11:45 IMPRESSION: Increasing multifocal airspace disease bilaterally with small effusions. Pulmonary edema is favored There are no findings diagnostic of pulmonary embolus. D/ / Go Burr / Go Burr Interpreting Provider: Go Burr - VTE Documentation of Mechanical Device: Intermittent pneumatic compression device Consult Discharge Plan - Plan Referrals: Linda Reyes, FINANCIAL SERVICES EDUCATION CONSULTANT [Primary Care Provider] -
[2017-07-04] MEDS: Meropenem 1,000 MG in Water for inj. (sterile) 10 ML IVP SCH ×3 (02:17→18:08)
[2017-07-04] MEDS: Ipratropium/Albuterol Neb 3 ML IH SCH ×4 (03:44→22:37)
[2017-07-04] MEDS: *HR* Heparin 5,000 UNIT/ML VIAL SQ SCH ×3 (05:33→21:49)
[2017-07-04 08:08] LABS: Hemoglobin 11.3 g/dL (11.5-15.4); Mean Corpuscular HGB Conc 32.3 g/dL (31.6-35.5); Mean Corpuscular Volume 86.6 fL (83.0-100.0); Mean Platelet Volume 11.4 fL (9.4-12.4); Neutrophils # 8.3 K/mcL (1.6-8.9); Platelet Count 112 K/mcL (140-400); Red Blood Count 4.04 M/mcL (3.82-4.97); Red Cell Distribution Width 14.4 % (11.5-14.5)
[2017-07-04 08:25] LABS: BUN/Creatinine Ratio 25 (6-26); Blood Urea Nitrogen 18 mg/dL (8-23); Calcium 8.3 mg/dL (8.6-10.3); Carbon Dioxide 27 mEq/L (23-29); Chloride 107 mEq/L (98-107); Glucose 110 mg/dL (70-105); Magnesium 1.7 mg/dL (1.6-2.6); Osmolality,Calculated 295 (280-300); Potassium 3.8 mEq/L (3.5-5.1); Sodium 141 mEq/L (136-145); eGFR For African Americans > 60 (> 60); eGFR For Non-African Americans > 60 (> 60)
[2017-07-04 08:55] LABS: Eosinophils # 0.7 K/mcL (0.0-0.6); Lymphocytes # 3.6 K/mcL (0.6-4.6); Monocytes # 0.4 K/mcL (0.0-1.3)
[2017-07-04 08:56] LABS: Platelet Estimate Slight Decrease (Normal); Reactive Lymphocytes Present (Not Present)
[2017-07-04] MEDS: Levofloxacin 750 MG/150 ML 750 MG/150 ML BAG IVPB SCH (09:27)
[2017-07-04] MEDS: Aspirin 81 MG TAB.CHEW PO SCH (09:28)
[2017-07-04] MEDS: Pantoprazole 40 MG VIAL IVP SCH (09:28)
[2017-07-04] MEDS: Furosemide 40 MG/4 ML VIAL IVP SCH (09:29)
--- NOTE | 2017-07-04 10:43 | Internal Med Progress Note ---
Date of Encounter: 07/04/17 Time of Encounter: 10:42 - Assessment and plan (1) Pneumonia Current Visit: No Status: Suspected Assessment and plan: Continue meropenem and levaquin. She is on 2 L of nasal oxygen. Qualifiers: Pneumonia type: due to unspecified organism Laterality: right Lung location: lower lobe of lung Qualified Code(s): J18.1 - Lobar pneumonia, unspecified organism (2) Pyelonephritis Current Visit: No Status: Acute Assessment and plan: Patient has UTI with proteus ESBL, Klebsiella She is currently on appropriate antibiotics with MEROPENEM for that. Tentatively will discharge the patient to complete two-week course of antibiotics. She will receive antibiotics through powerglide at skilled care facility Plan to discharge tomorrow on ertepenem complete a two-week course. She has a power glide (3) Gram-negative bacteremia Current Visit: No Status: Acute Assessment and plan: Complete 2 weeks overstep for pyelonephritis with gram-negative bacteremia.. (4) MORRIS (acute kidney injury) Current Visit: No Status: Resolved Assessment and plan: Resolved with hydration and improvement of hemodynamics. (5) Hydronephrosis Current Visit: Yes Status: Acute Assessment and plan: Obstructive uropathy with hydronephrosis resolved after uretral stent placement Qualifiers: Qualified Code(s): N13.30 - Unspecified hydronephrosis (6) Physical deconditioning Current Visit: Yes Status: Acute Assessment and plan: physical therapy and occupational therapy to see the patient. Expected discharge tomorrow to skilled care (7) Diastolic CHF Current Visit: Yes Status: Acute Assessment and plan: Improved with diuresis. Qualifiers: Qualified Code(s): I50.30 - Unspecified diastolic (congestive) heart failure (8) Elevated d-dimer Current Visit: Yes Status: Acute Assessment and plan: CT Angiogram of the chest is negative for PE. - Subjective Interval history: Patient seen and examined. Patient has remained afebrile the past 48 hours. Appears to be short of breath with conversation but improved with diuresis yesterday. Still has not got out of bed because of the femoral line. Femoral line and Alegria catheterwas removed yesterday and will increase activity. - Constitutional Vitals: Temp Pulse Resp BP Pulse Ox 97.8 F 93 16 151/89 95 07/04/17 07:28 07/04/17 07:28 07/04/17 07:28 07/04/17 07:28 07/04/17 07:28 General appearance: Present: A&O X 3, answers questions appropriately Exam: Gen.: patient is alert oriented times 3 not in distress. Cardiac: normal S1 S2 no additional sounds chest: clear auscultation abdomen: soft nontender nondistended normal bowel sounds Neuro: no focal deficits LE: trace swelling Internal Medicine: Result - Labs CBC & Chem 7: 07/04/17 07:58 07/04/17 07:58 Labs: Short CBC 07/04/17 Range/Units 07:58 WBC 13.0 H (4.3-11.1) K/mcL Hgb 11.3 L (11.5-15.4) g/dL Hct 35.0 L (35.3-44.9) % Plt Count 112 L (140-400) K/mcL Neutrophils # 8.3 (1.6-8.9) K/mcL BMP 07/04/17 07:58 Sodium 141 Potassium 3.8 Chloride 107 Carbon Dioxide 27 BUN 18 Creatinine 0.73 Glucose 110 H Calcium 8.3 L - ABG Interpretation ABG results: ABG ABG pH 7.35 pH Units (7.32-7.45) 06/30/17 05:08 ABG pCO2 31 mmHg (35-45) L 06/30/17 05:08 ABG pO2 71 mmHg (85-104) L 06/30/17 05:08 ABG O2 Saturation 93 % (95-98) L 06/30/17 05:08 PT/INR, D-dimer PT 11.5 Seconds (9.4-12.1) 07/01/17 08:40 D-Dimer [id number] ng/mLFEU (0-500) H 06/30/17 09:40 - Impressions Impressions Chest CTA 07/03/17 11:45 IMPRESSION: Increasing multifocal airspace disease bilaterally with small effusions. Pulmonary edema is favored There are no findings diagnostic of pulmonary embolus. D/ / Go Burr / Go Burr Interpreting Provider: Go Burr - VTE Documentation of Mechanical Device: Intermittent pneumatic compression device Consult Discharge Plan - Plan Referrals: Linda Reyes, TAY [Primary Care Provider] -
[2017-07-04] MEDS: Insulin LISPRO 300 UNITS/3 ML VIAL SQ SCH (19:32)
[2017-07-05] MEDS: Meropenem 1,000 MG in Water for inj. (sterile) 10 ML IVP SCH ×3 (02:43→19:51)
[2017-07-05] MEDS: Ipratropium/Albuterol Neb 3 ML IH SCH ×4 (03:53→21:22)
[2017-07-05 05:06] LABS: Hematocrit 34.7 % (35.3-44.9); Hemoglobin 11.1 g/dL (11.5-15.4); Mean Corpuscular Hemoglobin 28.2 pg (28.0-33.3); Mean Corpuscular Volume 88.1 fL (83.0-100.0); Mean Platelet Volume 11.8 fL (9.4-12.4); Monocytes # 1.1 K/mcL (0.0-1.3); Platelet Count 129 K/mcL (140-400); Red Blood Count 3.94 M/mcL (3.82-4.97); Red Cell Distribution Width 14.6 % (11.5-14.5)
[2017-07-05] MEDS: *HR* Heparin 5,000 UNIT/ML VIAL SQ SCH ×3 (05:25→22:17)
[2017-07-05 05:28] LABS: BUN/Creatinine Ratio 26 (6-26); Blood Urea Nitrogen 20 mg/dL (8-23); Calcium 8.1 mg/dL (8.6-10.3); Carbon Dioxide 24 mEq/L (23-29); Chloride 107 mEq/L (98-107); Glucose 115 mg/dL (70-105); Magnesium 1.7 mg/dL (1.6-2.6); Osmolality,Calculated 294 (280-300); Potassium 4.7 mEq/L (3.5-5.1); Sodium 140 mEq/L (136-145); eGFR For African Americans > 60 (> 60); eGFR For Non-African Americans > 60 (> 60)
[2017-07-05 05:40] LABS: Lymphocytes # 4.1 K/mcL (0.6-4.6); Neutrophils # 8.4 K/mcL (1.6-8.9); Platelet Estimate Normal (Normal)
[2017-07-05] MEDS: Aspirin 81 MG TAB.CHEW PO SCH (09:05)
[2017-07-05] MEDS: Furosemide 40 MG/4 ML VIAL IVP SCH (09:05)
[2017-07-05] MEDS: Pantoprazole 40 MG VIAL IVP SCH (09:05)
[2017-07-05] MEDS: Levofloxacin 750 MG/150 ML 750 MG/150 ML BAG IVPB SCH (09:06)
--- NOTE | 2017-07-05 11:08 | Internal Med Progress Note ---
Date of Encounter: 07/05/17 Time of Encounter: 11:05 - Assessment and plan (1) Pneumonia Current Visit: No Status: Suspected Assessment and plan: Continue levaquin. She is on 1.5 L of nasal oxygen. Discussed it with nurse to wean oxygen Qualifiers: Pneumonia type: due to unspecified organism Laterality: right Lung location: lower lobe of lung Qualified Code(s): J18.1 - Lobar pneumonia, unspecified organism (2) Pyelonephritis Current Visit: No Status: Acute Assessment and plan: Patient has UTI with proteus ESBL, Klebsiella She is currently on appropriate antibiotics with MEROPENEM for that. Tentatively will discharge the patient to complete two-week course of antibiotics. She will receive antibiotics through powerglide at skilled care facility Plan to discharge tomorrow on ertepenem complete a two-week course. She has a power glide pending (3) Gram-negative bacteremia Current Visit: No Status: Acute Assessment and plan: Complete 2 weeks ATB for pyelonephritis with gram-negative bacteremia.. (4) HLD (hyperlipidemia) Current Visit: No Status: Chronic Qualifiers: Hyperlipidemia type: unspecified Qualified Code(s): E78.5 - Hyperlipidemia , unspecified (5) Hydronephrosis Current Visit: Yes Status: Acute Assessment and plan: Obstructive uropathy with hydronephrosis resolved after stent placement Qualifiers: Qualified Code(s): N13.30 - Unspecified hydronephrosis (6) Physical deconditioning Current Visit: Yes Status: Acute Assessment and plan: physical therapy and occupational therapy to see the patient. Expected discharge to skilled care (7) Diastolic CHF Current Visit: Yes Status: Acute Assessment and plan: Improved with diuresis. Qualifiers: Qualified Code(s): I50.30 - Unspecified diastolic (congestive) heart failure (8) Elevated d-dimer Current Visit: Yes Status: Acute Assessment and plan: CT Angiogram of the chest is negative for PE. - Time Spent With Patient 25 - 35 minutes - Subjective Interval history: Patient is doing well, she is sitting in a chair, on 1.5 L nasal cannula. She denies chest pain or shortness of breasts. Afebrile. She has a power glide to right arm. Patient chose [facility] for SNF - Constitutional Vitals: Temp Pulse Resp BP Pulse Ox 97.8 F 98 16 116/76 97 07/05/17 10:43 07/05/17 10:43 07/05/17 10:43 07/05/17 10:43 07/05/17 10:43 General appearance: Present: A&O X 3, answers questions appropriately Exam: CONSTITUTIONAL: patient appears as an age appropriate female in no acute distress. EYES Clear sclerae, bilateral pupils are equal, reactive to light. EMOI. RESPIRATORY: No accessory muscle use, bilateral clear to auscultation, no wheezing, no crackles/rales. CARDIOVASCULAR: Regular heart rate, normal S1 and S2, no murmurs GASTROINTESTINAL: bowel sounds present, soft, no tenderness. MUSCULOSKELETAL: Joints in normal range of motion, no clubbing, no edema, no cyanosis. Bilateral peripheral pulses 2+. NEUROLOGIC: CN II to XII are grossly intact, no focal neurological deficit. Internal Medicine: Result - Labs CBC & Chem 7: 07/05/17 04:51 07/05/17 04:51 Labs: Short CBC 07/05/17 Range/Units 04:51 WBC 13.5 H (4.3-11.1) K/mcL Hgb 11.1 L (11.5-15.4) g/dL Hct 34.7 L (35.3-44.9) % Plt Count 129 L (140-400) K/mcL Neutrophils # 8.4 (1.6-8.9) K/mcL BMP 07/05/17 04:51 Sodium 140 Potassium 4.7 Chloride 107 Carbon Dioxide 24 BUN 20 Creatinine 0.78 Glucose 115 H Calcium 8.1 L - ABG Interpretation ABG results: ABG ABG pH 7.35 pH Units (7.32-7.45) 06/30/17 05:08 ABG pCO2 31 mmHg (35-45) L 06/30/17 05:08 ABG pO2 71 mmHg (85-104) L 06/30/17 05:08 ABG O2 Saturation 93 % (95-98) L 06/30/17 05:08 PT/INR, D-dimer PT 11.5 Seconds (9.4-12.1) 07/01/17 08:40 D-Dimer [id number] ng/mLFEU (0-500) H 06/30/17 09:40 - VTE Documentation of Mechanical Device: Intermittent pneumatic compression device Consult Discharge Plan - Plan Referrals: Reyes,Linda L, HYDRAULIC JACK ADJUSTER [Primary Care Provider] -
--- NOTE | 2017-07-05 11:25 | Discharge Summary ---
Date of Encounter: 07/05/17 Time of Encounter: 12:01 - Discharge Diagnosis (1) Pneumonia Priority: Primary Status: Resolved Qualifiers: Pneumonia type: due to unspecified organism Laterality: right Lung location: lower lobe of lung Qualified Code(s): J18.1 - Lobar pneumonia, unspecified organism (2) Pyelonephritis Priority: Primary Status: Resolved (3) Gram-negative bacteremia Priority: Secondary Status: Resolved (4) HLD (hyperlipidemia) Priority: Secondary Status: Chronic Qualifiers: Hyperlipidemia type: unspecified Qualified Code(s): E78.5 - Hyperlipidemia , unspecified (5) Hydronephrosis Priority: Secondary Status: Resolved Qualifiers: Hydronephrosis type: with renal calculous obstruction Qualified Code(s): N13.2 - Hydronephrosis with renal and ureteral calculous obstruction (6) Physical deconditioning Priority: Secondary Status: Acute (7) Diastolic CHF Priority: Secondary Status: Acute Qualifiers: Congestive heart failure chronicity: acute on chronic Qualified Code(s): I50.33 - Acute on chronic diastolic (congestive) heart failure (8) Elevated d-dimer Priority: Secondary Status: Ruled-out - Discharge Medications Prescriptions: Ertapenem [INVanz] 1,000 mg IVPB DAILY 14 Days #14 vial NS levoFLOXacin [Levaquin] 750 mg PO DAILY 5 Days #5 tablet Home Medications: Atorvastatin Calcium [Lipitor] 20 mg PO DAILY 07/07/16 [History] Lisinopril [Zestril] 20 mg PO DAILY 07/07/16 [History] Cyanocobalamin (B-12) [Vitamin B12] 1,000 mcg PO DAILY #90 tablet 07/14/16 [Rx] Cholecalciferol (D-3) [Vitamin D] 2,000 unit PO DAILY 08/31/16 [History] Ranitidine HCl [Heartburn Relief] 150 mg PO DAILY 06/28/17 [History] Ertapenem [INVanz] 1,000 mg IVPB DAILY 14 Days #14 vial NS 07/05/17 [Rx] levoFLOXacin [Levaquin] 750 mg PO DAILY 5 Days #5 tablet 07/05/17 [Rx] Allergies/Adverse Reactions: 3 Allergy/AdvReac Type Severity Reaction Status Date / Time No Known Allergies Allergy Verified 08/31/16 10:57 Procedures/tests Complete & Pending: Procedures Performed prior 72 hours Category Date Time Status CTA chest [CT angio chest] [CT] Stat Cat Scan 07/03/17 11:45 Completed Date of admission: 06/30/17 10:08 Primary care physician: Linda Reyes CNP Consults: 07/02/17 14:04 Consult to Occupational Therapy [CONS] Routine Comment: Evaluate, develop and implement POC Reason for Consult: weakness Consult to Physical Therapy [CONS] Routine Comment: Evaluate, develop and implement POC Reason for Consult: weakness Discharging clinician: Phong Ring Anticipated date of discharge: 07/05/17 - Patient Status Disposition: Transfer SNF Condition: Good Overall status at discharge: patient is not back to baseline - Discharge Instructions Follow Up With: Linda Reyes CNP [Primary Care Provider] - - Diet and Activity Activity: as per physical therapy Diet: low fat, low cholesterol Interval History: Ms. Zamorano is a 67 year old female with PMH HTN, HLD, presenting to ED this afternoon with 1 day of nausea and vomiting. Pt reports difficulty keeping down meals and fluids having vomited approximately 20 times since symptoms started yesterday. Denies sick contacts, has eaten the same food as family who are asymptomatic, no diarrhea. ED course: NSR ECG, bibasilar pneumonia on CT chest, creatinine of 2.32 at 1430 today, 4mm stone R ureter with mild hydronephrosis. Patient reports no episodes of vomiting after Zofran in ED. Has received 3L of IV fluid. On 4L O2 NC, saturating at 93%, denies abdominal pain or flank pain. Pt code status [id number]. She was admitted on June 29 for severe sepsis from pyelonephritis and bacteremia. Patient was placed on levofloxacin and meropenem, sepsis resolved. she is going be discharged on Power line with 2 weeks of IV Invanz for her bacteremia. (1) Pneumonia Current Visit: No Status: Suspected Assessment and plan: Continue levaquin. off O2 Qualifiers: Pneumonia type: due to unspecified organism Laterality: right Lung location: lower lobe of lung Qualified Code(s): J18.1 - Lobar pneumonia, unspecified organism (2) Pyelonephritis Current Visit: No Status: Acute Assessment and plan: Patient has UTI with proteus ESBL, Klebsiella She is currently on appropriate antibiotics with MEROPENEM for that. Tentatively will discharge the patient to complete two-week course of antibiotics. She will receive antibiotics through powerglide at skilled care facility Plan to discharge on ertepenem complete a two-week course. She has a power glide (3) Gram-negative bacteremia Current Visit: No Status: Acute Assessment and plan: Complete 2 weeks ATB for pyelonephritis with gram-negative bacteremia.. (4) HLD (hyperlipidemia) Current Visit: No Status: Chronic Qualifiers: Hyperlipidemia type: unspecified Qualified Code(s): E78.5 - Hyperlipidemia , unspecified (5) Hydronephrosis Current Visit: Yes Status: Acute Assessment and plan: Obstructive uropathy with hydronephrosis resolved after stent placement Qualifiers: Qualified Code(s): N13.30 - Unspecified hydronephrosis (6) Physical deconditioning Current Visit: Yes Status: Acute Assessment and plan: physical therapy and occupational therapy to see the patient. Expected discharge to skilled care (7) Diastolic CHF Current Visit: Yes Status: Acute Assessment and plan: Improved with diuresis. Qualifiers: Qualified Code(s): I50.30 - Unspecified diastolic (congestive) heart failure (8) Elevated d-dimer Current Visit: Yes Status: Acute Assessment and plan: CT Angiogram of the chest is negative for PE. Hospital course: Ms. Zamroano is a 67 year old female - Time Spent with Patient Total time spent providing and/or coordinating discharge services: - Constitutional Vitals: Temp Pulse Resp BP Pulse Ox 97.8 F 98 16 116/76 97 07/05/17 10:43 07/05/17 10:43 07/05/17 10:43 07/05/17 10:43 07/05/17 10:43 General appearance: Present: A&O X 3, answers questions appropriately Exam: CONSTITUTIONAL: patient appears as an age appropriate female in no acute distress. EYES Clear sclerae, bilateral pupils are equal, reactive to light. EMOI. RESPIRATORY: No accessory muscle use, bilateral clear to auscultation, no wheezing, no crackles/rales. CARDIOVASCULAR: Regular heart rate, normal S1 and S2, no murmurs GASTROINTESTINAL: bowel sounds present, soft, no tenderness. MUSCULOSKELETAL: Joints in normal range of motion, no clubbing, no edema, no cyanosis. Bilateral peripheral pulses 2+. NEUROLOGIC: CN II to XII are grossly intact, no focal neurological deficit. - VTE Documentation of Mechanical Device: Intermittent pneumatic compression device
--- NOTE | 2017-07-05 12:40 | Physician Discharge Referral ---
ExtendedCare Referral Info Transfer To: SNF Provider in Charge after Transfer: PCP Institutional Level of Care: Skilled (pneumonia, sepsis, need IV ATB, decondioning) - Diagnosis (1) Pneumonia Priority: Secondary Status: Resolved (2) Pyelonephritis Priority: Primary Status: Resolved (3) Gram-negative bacteremia Priority: Secondary Status: Resolved (4) HLD (hyperlipidemia) Priority: Secondary Status: Chronic (5) Hydronephrosis Priority: Secondary Status: Resolved (6) Physical deconditioning Priority: Secondary Status: Acute (7) Diastolic CHF Priority: Secondary Status: Acute (8) Elevated d-dimer Priority: Secondary Status: Ruled-out - Transfer Medications Prescriptions: Ertapenem [INVanz] 1,000 mg IVPB DAILY 14 Days #14 vial NS levoFLOXacin [Levaquin] 750 mg PO DAILY 5 Days #5 tablet Home Medications: Atorvastatin Calcium [Lipitor] 20 mg PO DAILY 07/07/16 [History] Lisinopril [Zestril] 20 mg PO DAILY 07/07/16 [History] Cyanocobalamin (B-12) [Vitamin B12] 1,000 mcg PO DAILY #90 tablet 07/14/16 [Rx] Cholecalciferol (D-3) [Vitamin D] 2,000 unit PO DAILY 08/31/16 [History] Ranitidine HCl [Heartburn Relief] 150 mg PO DAILY 06/28/17 [History] Ertapenem [INVanz] 1,000 mg IVPB DAILY 14 Days #14 vial NS 07/05/17 [Rx] levoFLOXacin [Levaquin] 750 mg PO DAILY 5 Days #5 tablet 07/05/17 [Rx] Allergies/Adverse Reactions: 3 Allergy/AdvReac Type Severity Reaction Status Date / Time No Known Allergies Allergy Verified 08/31/16 10:57 - Respiratory Orders None (PT and OT, IV invanz for 2 weeks) Smoking Cessation: Smoking cessation has been advised. For more information, call the [place] Tobacco Quit Line at 4-922-MZXU-NOW. CERTIFICATION: I certify that the transfer of the above named patient to an Extended Care Facility is necessary for the continuing treatment of the diagnosis listed. The above information is true and accurate reflection of patient's current condition. Confidential - Redisclosure prohibited without a patient's written consent.
[2017-07-06] MEDS: Meropenem 1,000 MG in Water for inj. (sterile) 10 ML IVP SCH ×2 (04:17→10:10)
[2017-07-06] MEDS: Ipratropium/Albuterol Neb 3 ML IH SCH ×4 (04:42→22:20)
[2017-07-06] MEDS: *HR* Heparin 5,000 UNIT/ML VIAL SQ SCH ×3 (06:20→21:21)
[2017-07-06] MEDS: Aspirin 81 MG TAB.CHEW PO SCH (10:08)
[2017-07-06] MEDS: Furosemide 40 MG/4 ML VIAL IVP SCH (10:09)
[2017-07-06] MEDS: Pantoprazole 40 MG VIAL IVP SCH (10:09)
[2017-07-06] MEDS: Levofloxacin 750 MG/150 ML 750 MG/150 ML BAG IVPB SCH (10:09)
--- NOTE | 2017-07-06 12:22 | Internal Med Progress Note ---
Date of Encounter: 07/06/17 Time of Encounter: 11:25 - Assessment and plan (1) Pneumonia Current Visit: No Status: Suspected Assessment and plan: Continue with ertapenem. Patient is off oxygen. Qualifiers: Pneumonia type: due to unspecified organism Laterality: bilateral Lung location: lower lobe of lung Qualified Code(s): J18.9 - Pneumonia, unspecified organism (2) Pyelonephritis Current Visit: No Status: Resolved Assessment and plan: Patient has UTI with proteus ESBL and Klebsiella . She spent 2 weeks of IV antibiotics with ertapenem. (3) Gram-negative bacteremia Current Visit: No Status: Resolved Assessment and plan: Complete 2 weeks ATB for pyelonephritis with gram-negative bacteremia.. (4) HLD (hyperlipidemia) Current Visit: No Status: Chronic Assessment and plan: Continue statin Qualifiers: Hyperlipidemia type: unspecified Qualified Code(s): E78.5 - Hyperlipidemia , unspecified (5) Hydronephrosis Current Visit: Yes Status: Resolved Assessment and plan: Obstructive uropathy with hydronephrosis resolved after stent placement Qualifiers: Hydronephrosis type: with renal calculous obstruction Qualified Code(s): N13.2 - Hydronephrosis with renal and ureteral calculous obstruction (6) Elevated d-dimer Current Visit: Yes Status: Ruled-out Assessment and plan: CT Angiogram of the chest is negative for PE. (7) DVT prophylaxis Current Visit: No Status: Acute Assessment and plan: Heparin subcutaneous - Subjective Interval history: No acute events. The patient has been discharged since yesterday however her discharge has been on hold as she does not have an isolated room at the facility she is going to. She has been stable here. She is afebrile. Has no symptoms or complaints whatsoever. - Constitutional Vitals: Temp Pulse Resp BP Pulse Ox 97.7 F 101 15 126/79 92 07/06/17 11:34 07/06/17 11:34 07/06/17 11:34 07/06/17 11:34 07/06/17 11:34 General appearance: Present: A&O X 3, answers questions appropriately Exam: GEN: NAD CVS: RRR. S1, S2, No m/r/g RESP: CTAB ABD: Soft, NT, ND, +BS EXT: No edema. 2+ DP. No rashes NEURO: Nonfocal Internal Medicine: Result - Labs CBC & Chem 7: 07/05/17 04:51 07/05/17 04:51 - ABG Interpretation ABG results: ABG ABG pH 7.35 pH Units (7.32-7.45) 06/30/17 05:08 ABG pCO2 31 mmHg (35-45) L 06/30/17 05:08 ABG pO2 71 mmHg (85-104) L 06/30/17 05:08 ABG O2 Saturation 93 % (95-98) L 06/30/17 05:08 PT/INR, D-dimer PT 11.5 Seconds (9.4-12.1) 07/01/17 08:40 D-Dimer [id number] ng/mLFEU (0-500) H 06/30/17 09:40 - VTE Documentation of Mechanical Device: Intermittent pneumatic compression device Consult Discharge Plan - Plan Referrals: Linda Reyes CNP [Primary Care Provider] - Prescriptions: Ertapenem [INVanz] 1,000 mg IVPB DAILY 14 Days #14 vial NS levoFLOXacin [Levaquin] 750 mg PO DAILY 5 Days #5 tablet
[2017-07-07] MEDS: Ipratropium/Albuterol Neb 3 ML IH SCH ×3 (03:55→15:44)
[2017-07-07] MEDS: *HR* Heparin 5,000 UNIT/ML VIAL SQ SCH ×2 (05:31→15:17)
[2017-07-07] MEDS ORDERED: Ertapenem 1,000 MG in Water for inj. (sterile) 10 ML IVP SCH (09:00)
[2017-07-07] MEDS ORDERED: Famotidine 20 MG TABLET PO SCH (09:00)
[2017-07-07] MEDS: Levofloxacin 750 MG/150 ML 750 MG/150 ML BAG IVPB SCH (09:00)
[2017-07-07] MEDS: Aspirin 81 MG TAB.CHEW PO SCH (09:01)
[2017-07-07 10:51] VITALS: BP 118/78
--- NOTE | 2017-07-07 13:22 | Internal Med Progress Note ---
Date of Encounter: 07/07/17 Time of Encounter: 10:00 - Assessment and plan (1) Pneumonia Current Visit: No Status: Suspected Assessment and plan: Continue with ertapenem. Patient is off oxygen. Qualifiers: Pneumonia type: due to unspecified organism Laterality: bilateral Lung location: lower lobe of lung Qualified Code(s): J18.9 - Pneumonia, unspecified organism (2) Pyelonephritis Current Visit: No Status: Resolved Assessment and plan: Patient has UTI with proteus ESBL and Klebsiella . She spent 2 weeks of IV antibiotics with ertapenem. (3) Gram-negative bacteremia Current Visit: No Status: Resolved Assessment and plan: Complete 2 weeks ATB for pyelonephritis with gram-negative bacteremia.. (4) HLD (hyperlipidemia) Current Visit: No Status: Chronic Assessment and plan: Continue statin Qualifiers: Hyperlipidemia type: unspecified Qualified Code(s): E78.5 - Hyperlipidemia , unspecified (5) Hydronephrosis Current Visit: Yes Status: Resolved Assessment and plan: Obstructive uropathy with hydronephrosis resolved after stent placement Qualifiers: Hydronephrosis type: with renal calculous obstruction Qualified Code(s): N13.2 - Hydronephrosis with renal and ureteral calculous obstruction (6) Elevated d-dimer Current Visit: Yes Status: Ruled-out Assessment and plan: CT Angiogram of the chest is negative for PE. (7) DVT prophylaxis Current Visit: No Status: Acute Assessment and plan: Heparin subcutaneous - Subjective Interval history: No acute events. The patient has been discharged since 07/05 however her discharge has been on hold as she does not have an isolated room at the facility she is going to. She has been stable here. She is afebrile. Has no symptoms or complaints whatsoever. - Constitutional Vitals: Temp Pulse Resp BP Pulse Ox 98.0 F 93 20 118/78 95 07/07/17 10:49 07/07/17 10:49 07/07/17 10:49 07/07/17 10:49 07/07/17 10:49 General appearance: Present: A&O X 3, answers questions appropriately Exam: GEN: NAD CVS: RRR. S1, S2, No m/r/g RESP: CTAB ABD: Soft, NT, ND, +BS EXT: No edema. 2+ DP. No rashes NEURO: Nonfocal Internal Medicine: Result - Labs CBC & Chem 7: 07/05/17 04:51 07/05/17 04:51 - ABG Interpretation ABG results: ABG ABG pH 7.35 pH Units (7.32-7.45) 06/30/17 05:08 ABG pCO2 31 mmHg (35-45) L 06/30/17 05:08 ABG pO2 71 mmHg (85-104) L 06/30/17 05:08 ABG O2 Saturation 93 % (95-98) L 06/30/17 05:08 PT/INR, D-dimer PT 11.5 Seconds (9.4-12.1) 07/01/17 08:40 D-Dimer [id number] ng/mLFEU (0-500) H 06/30/17 09:40 - VTE Documentation of Mechanical Device: Intermittent pneumatic compression device Consult Discharge Plan - Plan Referrals: Linda Reyes CNP [Primary Care Provider] - Prescriptions: Ertapenem [INVanz] 1,000 mg IVPB DAILY 14 Days #14 vial NS levoFLOXacin [Levaquin] 750 mg PO DAILY 5 Days #5 tablet
== END 2017-07-07 16:38 | DRG 871 ==
LOC: 2ANU 13:53 → EMEROO 13:53 → SUATTDRO 18:32 → 2NENU 18:50 → ICNU 06-29 07:31 → SUATTDRO 06-30 10:08 → 3ANU 07-01 20:21
PROVIDERS: ADMIT Internal Medicine; ATTEND Hospitalist

== ENCOUNTER 2017-08-16 19:31 | Observation (INO) ==
[2017-08-16] MEDS ORDERED: 0.9 % Sodium Chloride 1,000 ML IVC ONE (19:51)
[2017-08-16] MEDS ORDERED: Ondansetron 4 MG/2 ML VIAL IVP ONE ×2 (19:51→20:34)
[2017-08-16 20:01] LABS: Basophils % 0.1 %; Hematocrit 33.6 % (35.3-44.9); Hemoglobin 10.6 g/dL (11.5-15.4); Immature Granulocytes % 1.4 % (0-4); Lymphocytes # 0.4 K/mcL (0.6-4.6); Lymphocytes % 4.4 %; Mean Corpuscular HGB Conc 31.5 g/dL (31.6-35.5); Mean Corpuscular Hemoglobin 27.8 pg (28.0-33.3); Mean Corpuscular Volume 88.2 fL (83.0-100.0); Mean Platelet Volume 9.5 fL (9.4-12.4); Monocytes # 0.4 K/mcL (0.0-1.3); Monocytes % 4.7 %; Neutrophils # 7.2 K/mcL (1.6-8.9); Platelet Count 200 K/mcL (140-400); Red Blood Count 3.81 M/mcL (3.82-4.97); Red Cell Distribution Width 15.2 % (11.5-14.5); Segmented Neutrophils % 89.4 %
[2017-08-16 20:18] LABS: BUN/Creatinine Ratio 26 (6-26); Blood Urea Nitrogen 16 mg/dL (8-23); Calcium 8.5 mg/dL (8.6-10.3); Carbon Dioxide 26 mEq/L (23-29); Chloride 104 mEq/L (98-107); Glucose 171 mg/dL (70-105); Osmolality,Calculated 291 (280-300); Potassium 3.5 mEq/L (3.5-5.1); Sodium 138 mEq/L (136-145); eGFR For Non-African Americans > 60 (> 60)
--- NOTE | 2017-08-16 20:20 | Emergency Department Note ---
Disposition Clinical Impression: Nausea and vomiting Qualifiers: Vomiting Intractability: intractable Qualified Code(s): R11.2 - Disposition: Admitted As Inpatient Condition: Good Time of Disposition: 23:57 Nausea/Vomiting/Diarrhea HPI - General Chief complaint: ED Nausea/Vomiting/Diarrhea Stated complaint: nausa/vomiting Time Seen by Provider: 08/16/17 19:50 Source: patient, EMS Limitations: no limitations Nursing Notes Reviewed: Yes Vital Signs Reviewed: Yes - History of Present Illness HPI Narrative: Mrs. Zamorano, a 67-year-old female, presents from home via EMS for evaluation of nausea with vomiting (nonbilious, nonbloody). Onset 2 AM this morning. She denies any other associated symptoms. ROS: Positive: As above Negative: Fever, chills, abdominal pain, flank pain, pain with urination, hematuria, changes in bowel habits, chest pains, palpitations, dyspnea, diaphoresis PMH: GERD, hypertension, hyperlipidemia, history of renal calculi Patient was admitted to this facility in June for sepsis and pulmonary source. - Related Data Home Medications Medication Instructions Recorded Confirmed Atorvastatin Calcium [Lipitor] 20 mg PO DAILY 08/15/17 08/16/17 Cholecalciferol (D-3) [Vitamin D] 2,000 unit PO DAILY 08/15/17 08/16/17 Lisinopril [Zestril] 20 mg PO DAILY 08/15/17 08/16/17 Ranitidine HCl [Zantac] 150 mg PO DAILY 08/15/17 08/16/17 Pantoprazole Sodium [Protonix] 20 mg PO DAILY 08/16/17 08/16/17 Previous Rx's Medication Instructions Recorded Docusate [Colace] 100 mg PO BID #60 capsule 08/15/17 HYDROcodone/Acet 5/325 mg [[place] 1 tab PO Q4H PRN 4 Days #15 tab 08/15/17 5-325 mg] Phenazopyridine HCl [Pyridium] 200 mg PO TIDAC #12 tab 08/15/17 Allergies Allergy/AdvReac Type Severity Reaction Status Date / Time No Known Allergies Allergy Verified 08/15/17 10:50 All systems ED: reviewed and negative except as stated. Review of Systems: As Per HPI Past Medical History - Past Medical History Medical history: Reports: GERD, hyperlipidemia, hypertension, other Surgical history: Reports: breast surgery, hysterectomy, orthopedic, other, other Psychiatric history: Reports: no psych history - Social History Smoking Status: Never smoker Smokeless Tobacco Status: No Alcohol use: Reports: none Drug use: Reports: none Physical Exam Vital Signs Reviewed General: Patient is alert, oriented, and in no mild distress-she is holding her back with flecks of emesis on her blouse. HEENT: No facial asymmetry. Head is normocephalic and atraumatic. PERRLA, EOMI. Nasal turbinates moist and pink. Posterior pharynx without exudates or cobblestoning. Trachea midline. Cardiovascular: Heart regular rate and rhythm without clicks, rubs, gallops, or murmurs. No JVD. PMI nondisplaced. Respiratory: Symmetric chest rise with good respiratory effort. Bilateral breath sounds are clear without wheezing, crackles, or rhonchi. Abdomen: Bowel sounds present normoactive x-4 quadrants. Abdomen is soft, nondistended, and nontender. No organomegaly noted. Musculoskeletal: Spontaneously moving all extremities. Neuro: Alert and oriented x4. Sensation light touch intact. Psych: Patient's affect is appropriate for situation. - General Limitations: no limitations General appearance: alert, in no apparent distress Course Course Narrative: Patient had outpatient urologic surgery performed yesterday by Dr. Coleman. She was scoped up to the renal calyces of the kidney and no stone was visualized. A prior right ureteral stent was removed with new stent placed. Serum hematology shows anemia consistent with patient's baseline chronic anemia. She has no leukocytosis. She is afebrile. Serum chemistry is unremarkable. Urinalysis shows no urine bacteria however there is protein, blood, RBC, WBC. CT abdomen and pelvis concerning for hydronephrosis persistent after stent change. No unlikely, there is a possibility of stent malfunction. I discussed the patient with Dr. Lincoln, on-call urology. He agrees to see the patient on consultation in the hospital tomorrow. I discussed the above the patient and her and son. She is in agreement to coming into the hospital for continued evaluation and management. I discussed the patient with the admitting hospitalist, Dr. Reveles, who agrees to accept the patient for nausea and vomiting. Abdomen/Pelvis CT 08/16/17 19:51 IMPRESSION: 1. Despite presence of a right ureteral stent, there is mild to moderate right hydronephrosis, raising the possibility of stent malfunction. Gas within the renal collecting system is detected as well. 2. That gas could have been introduced by instrumentation. However, a gas-forming infection (i.e., emphysematous pyelitis) would be considered as well. Correlation with urinalysis is recommended. 3. Hyperdense material and gallstones within the gallbladder. 4. Lobulated lesion within the left breast, incompletely evaluated. Apparently this has been previously worked up with mammography, and continued follow-up as recommended is necessary. D/ / Tai De Guzman MD / Tai De Guzman MD Interpreting Provider: Tai De Guzman MD Vital Signs Temperature 99.9 F H 08/16/17 19:32 Pulse Rate 97 08/16/17 19:32 Respiratory Rate 18 08/16/17 19:32 Blood Pressure 171/82 08/16/17 19:32 O2 Sat by Pulse Oximetry 92 08/16/17 19:32 Temperature 102.4 F H 08/17/17 03:50 Pulse Rate 104 08/17/17 03:50 Respiratory Rate 18 08/17/17 03:50 Blood Pressure 164/90 08/17/17 03:50 O2 Sat by Pulse Oximetry 98 08/17/17 03:50 Oxygen Delivery Oxygen Delivery Room Air Nausea/Vomiting/Diarrhea - Lab Data Result diagrams: 08/16/17 19:50 08/16/17 19:50 Lab Results 08/16/17 08/16/17 08/16/17 Range/Units 19:50 19:50 20:52 WBC 8.0 (4.3-11.1) K/mcL RBC 3.81 L (3.82-4.97) M/mcL Hgb 10.6 L (11.5-15.4) g/dL Hct 33.6 L (35.3-44.9) % MCV 88.2 (83.0-100.0) fL MCH 27.8 L (28.0-33.3) pg MCHC 31.5 L (31.6-35.5) g/dL RDW 15.2 H (11.5-14.5) % Plt Count 200 (140-400) K/mcL MPV 9.5 (9.4-12.4) fL Immature Gran % 1.4 (0-4) % Seg Neutrophils % 89.4 % Lymphocytes % 4.4 % Monocytes % 4.7 % Eosinophils % 0.0 % Basophils % 0.1 % Neutrophils # 7.2 (1.6-8.9) K/mcL Lymphocytes # 0.4 L (0.6-4.6) K/mcL Monocytes # 0.4 (0.0-1.3) K/mcL Eosinophils # 0.0 (0.0-0.6) K/mcL Basophils # 0.0 (0.0-0.2) K/mcL Sodium 138 (136-145) mEq/L Potassium 3.5 (3.5-5.1) mEq/L Chloride 104 (98-107) mEq/L Carbon Dioxide 26 (23-29) mEq/L BUN 16 (8-23) mg/dL Creatinine 0.61 (0.60-1.20) mg/dL Est GFR ( Amer) > 60 (> 60) Est GFR (Non-Af Amer) > 60 (> 60) BUN/Creatinine Ratio 26 (6-26) Glucose 171 H (70-105) mg/dL Calculated Osmolality 291 (280-300) Calcium 8.5 L (8.6-10.3) mg/dL Urine Color Yellow (Yellow) Urine Clarity Cloudy A (Clear) Urine pH 6.0 (5.0-8.0) pH Units Ur Specific [place] 1.023 (1.010-1.025) Urine Protein 100 H (Neg-Trace) mg/dL Urine Glucose (UA) Normal (Normal) mg/dL Urine Ketones Negative (Negative) mg/dL Urine Blood Large H (Negative) Urine Nitrite Negative (Negative) Urine Bilirubin Negative (Negative) Urine Urobilinogen Normal (Normal) mg/dL Ur Leukocyte Esterase Moderate H (Negative) Urine Microscopic RBC TNTC H (0-3) per hpf Urine Microscopic WBC TNTC H (0-3) per hpf Ur Squamous Epith Cells Many H (None-Few) per lpf Urine Bacteria None Seen (None-Few) per hpf Hyaline Casts None Seen (None-Few) per lpf Urine Yeast Moderate H (None Seen) per hpf Ur Culture Indicated? NO. (NO) Attestation Statement - Attestation Attestation: I examined this patient and my medical decision-making was reviewed with the Resident Physician. I agree with the documented findings, disposition and treatment plan as described except to the extent set forth below. Findings consistent with nausea and vomiting from ureteral obstruction. Possible ongoing hydronephrosis. Will admit for further evaluation and neurology consultation
[2017-08-16 21:07] LABS: Bilirubin,Urine Negative (Negative); Blood,Urine Large (Negative); Clarity,Urine Cloudy (Clear); Color,Urine Yellow (Yellow); Glucose,Urine (UA) Normal (Normal); Ketones,Urine Negative (Negative); Leukocyte Esterase,Urine Moderate (Negative); Nitrite,Urine Negative (Negative); Protein,Urine 100 mg/dL (Neg-Trace); Specific Gravity,Urine 1.023 (1.010-1.025); Urobilinogen,Urine Normal (Normal)
[2017-08-16 21:12] LABS: Bacteria,Urine None Seen per hpf (None-Few); Hyaline Casts,Urine None Seen per lpf (None-Few); Squamous Epithelial Cell,Urine Many per lpf (None-Few); WBC,Urine TNTC per hpf (0-3)
[2017-08-16 21:27] LABS: RBC,Urine TNTC per hpf (0-3)
[2017-08-16 21:28] LABS: Yeast,Urine Moderate per hpf (None Seen)
[2017-08-17] MEDS ORDERED: *HR* HYDROcodone/Acet 5/325 mg TABLET PO PRN (00:09)
[2017-08-17] MEDS ORDERED: *HR* Promethazine 25 MG/ML VIAL IVP PRN (00:09)
[2017-08-17] MEDS ORDERED: Naloxone 0.4 MG/ML INJ IVP PRN (00:09)
[2017-08-17] MEDS ORDERED: *HR* OxyCODONE Immed Rel 5 MG TABLET PO PRN (00:09)
[2017-08-17] MEDS ORDERED: Ondansetron 4 MG/2 ML VIAL IVP PRN (00:09)
--- NOTE | 2017-08-17 00:58 | Internal Med History&Physical ---
Date of Encounter: 08/17/17 Time of Encounter: 00:20 Assessment and Plan (1) Nausea and vomiting Current visit: Yes Status: Acute Will place the pt into Med Surg for observation Her intractable N/V could be due to possible Ureter stent malfunction with hydronephrosis + Possible UTI However her CT of Abd showed Cholelithiasis.. She does not have any RUQ pain will check U/S of RUQ check LFt's Cont symptomatic and supportive care IV hydration Urology consulted May need to remove stent.. not sure whether she need another stent or nor...so place her on NPO after mid night Qualifiers: Vomiting Intractability: intractable Qualified Code(s): R11.2 - Nausea with vomiting, unspecified (2) Cholelithiasis Current visit: No Status: Acute Will check LFT and get U/S of RUQ Qualifiers: Cholelithiasis location: other site Biliary obstruction: without biliary obstruction Qualified Code(s): K80.80 - Other cholelithiasis without obstruction (3) UTI (urinary tract infection) Current visit: No Status: Acute UA showed Yeast, Hematuria, Esterase + will start her on Rocephin + Diflucan will f/u on Urine cx Qualifiers: Urinary tract infection type: site unspecified Hematuria presence: with hematuria Qualified Code(s): N39.0 - Urinary tract infection, site not specified; R31.9 - Hematuria, unspecified (4) Hydronephrosis Current visit: No Status: Acute Noticed mild hydronephrosis due to stent malfucntion Urology on board Qualifiers: Hydronephrosis type: with renal calculous obstruction Qualified Code(s): N13.2 - Hydronephrosis with renal and ureteral calculous obstruction Internal Medicine - H&P: HPI Chief complaint: [place] / vomiting Admitted From: Emergency Dept Plans for Post Hospital Care: Home History of present illness: Ms. Zamorano is a 67 year old female with knwon PMH of HTN, HLD, Nephrolithiasis , who recently on 08/15/17 had Rt ureter stent removal, diagnostic cystoscopy and stent exchange by Dr. Barr now she presented to ER c/o intractable nausea and vomiting since last 2 days, unable to hold anything down. Denied any abdominal pain, no flank pain, no fever. However she does c/o chills and shivering. She denied any dysuria / hematuria. She had CT of Abd done in the ER which showed mild to moderate Rt hydronephrosis - possible stent malfunction.Gas within the renal collecting system noticed. Past Med Surg Social Fam HX - Past Medical History Medical history: GERD, hyperlipidemia, hypertension, other Psychiatric history: no psych history - Past Surgical History Surgical History: breast surgery, hysterectomy, orthopedic, other, other - Social History Smoking Status: Never smoker Smokeless Tobacco Status: No Alcohol use: none Drug use: none - Family History Mother Living Status: Still Living Hx Family Cardiac Disorders: No Hx Family Respiratory Disorders: No Hx Family Cancer: No Hx Family GI Disorders: No Internal Medicine - H&P: Meds Atorvastatin Calcium [Lipitor] 20 mg PO DAILY 08/15/17 [History] Cholecalciferol (D-3) [Vitamin D] 2,000 unit PO DAILY 08/15/17 [History] Docusate [Colace] 100 mg PO BID #60 capsule 08/15/17 [Rx] HYDROcodone/Acet 5/325 mg [[place] 5-325 mg] 1 tab PO Q4H PRN 4 Days #15 tab 08/15 [Rx] Lisinopril [Zestril] 20 mg PO DAILY 08/15/17 [History] Phenazopyridine HCl [Pyridium] 200 mg PO TIDAC #12 tab 08/15/17 [Rx] Ranitidine HCl [Zantac] 150 mg PO DAILY 08/15/17 [History] Pantoprazole Sodium [Protonix] 20 mg PO DAILY 08/16/17 [History] 3 Allergy/AdvReac Type Severity Reaction Status Date / Time No Known Allergies Allergy Verified 08/15/17 10:50 All Systems PM: A 10-system review of systems was performed and is negative for pertinent findings except as documented above in the HPI. Review of systems: Reviewed all the systems, everything is benign except the systems and symptoms I mentioned in HPI - Constitutional Vitals: Temp Pulse Resp BP Pulse Ox 99.2 F 90 15 158/76 97 08/16/17 23:25 08/16/17 23:25 08/16/17 23:25 08/16/17 23:25 08/16/17 23:25 General appearance: Present: mild distress (lethagric), A&O X 3, answers questions appropriately Exam: Looks lethargic and weak - Head Head exam: Present: atraumatic, normal inspection - Neck Neck exam general surgery: Present: supple - Respiratory Respiratory exam: Present: decreased breath sounds. Absent: rales, respiratory distress, rhonchi, wheezes - Cardiovascular Cardiovascular exam: Present: RRR, +S1, +S2. Absent: diastolic murmur, gallop, rubs, systolic murmur - GI/Abdominal GI/Abdominal exam: Present: normal bowel sounds, soft. Absent: rebound, rigid, tenderness - Extremities Exam Extremities exam: Absent: calf tenderness, pedal edema, tenderness - Back Exam Back exam: Absent: CVA tenderness (L), CVA tenderness (R) - Neurological Exam Neurological exam: Present: alert, oriented X3 - Psychiatric Psychiatric exam: Present: normal affect, normal mood - Skin Skin exam: Present: dry. Absent: rash Internal Med - H&P Results - Labs CBC & Chem 7: 08/16/17 19:50 08/16/17 19:50
[2017-08-17] MEDS ORDERED: cefTRIAXone 1,000 MG in Water for inj. (sterile) 10 ML IVP SCH (01:00)
[2017-08-17] MEDS: 0.9 % Sodium Chloride 1,000 ML IVC SCH ×3 (01:12→20:54)
[2017-08-17] MEDS: Fluconazole 100 MG TABLET PO SCH ×2 (02:31→09:48)
[2017-08-17] MEDS: Acetaminophen 325 MG TABLET PO PRN ×2 (04:27→20:51)
[2017-08-17 06:05] LABS: Basophils % 0.1 %; Hemoglobin 9.3 g/dL (11.5-15.4); Immature Granulocytes % 1.2 % (0-4); Lymphocytes # 0.6 K/mcL (0.6-4.6); Lymphocytes % 8.6 %; Mean Corpuscular HGB Conc 32.1 g/dL (31.6-35.5); Mean Corpuscular Hemoglobin 27.8 pg (28.0-33.3); Mean Corpuscular Volume 86.8 fL (83.0-100.0); Mean Platelet Volume 9.8 fL (9.4-12.4); Monocytes # 0.4 K/mcL (0.0-1.3); Neutrophils # 6.1 K/mcL (1.6-8.9); Platelet Count 162 K/mcL (140-400); Red Blood Count 3.34 M/mcL (3.82-4.97); Red Cell Distribution Width 15.2 % (11.5-14.5); Segmented Neutrophils % 85.1 %
[2017-08-17 06:33] LABS: Alanine Aminotransferase 80 Units/L (7-52); Alkaline Phosphatase 104 Units/L (34-104); Aspartate Amino Transferase 100 Units/L (13-39); BUN/Creatinine Ratio 23 (6-26); Blood Urea Nitrogen 14 mg/dL (8-23); Calcium 7.9 mg/dL (8.6-10.3); Carbon Dioxide 27 mEq/L (23-29); Chloride 105 mEq/L (98-107); Globulin 3.1 g/dL (2.4-3.5); Glucose 117 mg/dL (70-105); Osmolality,Calculated 284 (280-300); Potassium 3.4 mEq/L (3.5-5.1); Sodium 136 mEq/L (136-145); Total Protein 6.1 g/dL (6.4-8.9); eGFR For Non-African Americans > 60 (> 60)
--- NOTE | 2017-08-17 10:14 | Urology - Consult Note ---
Date of Encounter: 08/17/17 Time of Encounter: 10:12 - Assessment and Plan (1) Hydronephrosis Current Visit: No Status: Acute Assessment and plan: I believe the patient's right ureteral stent is in good position and functioning correctly. The slight increase in her hydronephrosis is normal after procedure. The air in her right collecting system is also consistent with recent instrumentation. Qualifiers: Hydronephrosis type: other Qualified Code(s): N13.39 - Other hydronephrosis (2) UTI (urinary tract infection) Current Visit: No Status: Acute Assessment and plan: I believe the patient developed an infection secondary to fungus potentially. Her UA from this admission revealed fungus. She feels better after receiving antimicrobials already. Continue current treatment at this time. We will continue to follow along closely. Qualifiers: Urinary tract infection type: site unspecified Hematuria presence: with hematuria Qualified Code(s): N39.0 - Urinary tract infection, site not specified; R31.9 - Hematuria, unspecified Urology CN:HPI Consult date: 08/17/17 Reason for consult Urology: Hydronephrosis Requesting physician: Maryjo Duarte History of present illness: Mona is a 67-year-old female with a history of recent ureteroscopy on the right side by Dr. Coleman on Tuesday. Patient states that the next day she started developing nausea and vomiting. She came to the emergency department last night which revealed some mild to moderate right-sided hydronephrosis. Stent appeared in good position. Her urinalysis did show yeast. Patient has had some fevers since arrival to the hospital. Her nausea and vomiting have improved since starting the antibiotic since IV fluids. Past Med Surg Social Fam HX - Past Medical History Medical history: GERD, hyperlipidemia, hypertension, other Psychiatric history: no psych history - Past Surgical History Surgical History: breast surgery, hysterectomy, orthopedic, other, other - Social History Smoking Status: Never smoker Smokeless Tobacco Status: No Alcohol use: none Drug use: none - Family History Mother Living Status: Still Living Hx Family Cardiac Disorders: No Hx Family Respiratory Disorders: No Hx Family Cancer: No Hx Family GI Disorders: No Medications and Allergies Atorvastatin Calcium [Lipitor] 20 mg PO DAILY 08/15/17 [History] Cholecalciferol (D-3) [Vitamin D] 2,000 unit PO DAILY 08/15/17 [History] Docusate [Colace] 100 mg PO BID #60 capsule 08/15/17 [Rx] HYDROcodone/Acet 5/325 mg [[place] 5-325 mg] 1 tab PO Q4H PRN 4 Days #15 tab 08/15 [Rx] Lisinopril [Zestril] 20 mg PO DAILY 08/15/17 [History] Phenazopyridine HCl [Pyridium] 200 mg PO TIDAC #12 tab 08/15/17 [Rx] Ranitidine HCl [Zantac] 150 mg PO DAILY 08/15/17 [History] Pantoprazole Sodium [Protonix] 20 mg PO DAILY 08/16/17 [History] 3 Allergy/AdvReac Type Severity Reaction Status Date / Time No Known Allergies Allergy Verified 08/15/17 10:50 Review of Systems - Constitutional fever(s) - EENT Nose, mouth and throat: no sore throat, no throat swelling - Cardiovascular no chest pain, no diaphoresis, no edema - Gastrointestinal abdominal pain, vomiting - Musculoskeletal back pain - Integumentary no erythema, no rash - Neurological weakness - Psychiatric no confusion - Hematologic/Lymphatic no lymphadenopathy Exam Initial Vital Signs Temp Pulse Resp BP Pulse Ox 99.9 F H 97 18 171/82 92 08/16/17 19:32 08/16/17 19:32 08/16/17 19:32 08/16/17 19:32 08/16/17 19:32 - General physical appearance Present: well developed, no distress - Eyes Absent: icteric - Neck Present: no lymphadenopathy - Respiratory Present: normal respiratory effort - Cardiovascular Cardiovascular exam IM: RRR - Abdomen Abdomen: Present: soft. Absent: suprapubic tenderness - Integumentary Present: no rash. Absent: lesions - Neurologic Present: normal coordination. Absent: confused Urology Results - Labs 08/17/17 05:42 08/17/17 05:42 Abnormal lab results RBC 3.34 M/mcL (3.82-4.97) L 08/17/17 05:42 Hgb 9.3 g/dL (11.5-15.4) L 08/17/17 05:42 Hct 29.0 % (35.3-44.9) L 08/17/17 05:42 MCH 27.8 pg (28.0-33.3) L 08/17/17 05:42 RDW 15.2 % (11.5-14.5) H 08/17/17 05:42 Potassium 3.4 mEq/L (3.5-5.1) L 08/17/17 05:42 Glucose 117 mg/dL (70-105) H 08/17/17 05:42 POC Glucose 122 (58-89) H 08/17/17 05:32 Calcium 7.9 mg/dL (8.6-10.3) L 08/17/17 05:42 AST 100 Units/L (13-39) H 08/17/17 05:42 ALT 80 Units/L (7-52) H 08/17/17 05:42 Serum Total Protein 6.1 g/dL (6.4-8.9) L 08/17/17 05:42 Albumin 3.0 g/dL (3.5-5.7) L 08/17/17 05:42 Albumin/Globulin Ratio 1.0 (1.1-2.2) L 08/17/17 05:42 Urine Clarity Cloudy (Clear) A 08/16/17 20:52 Urine Protein 100 mg/dL (Neg-Trace) H 08/16/17 20:52 Urine Blood Large (Negative) H 08/16/17 20:52 Ur Leukocyte Esterase Moderate (Negative) H 08/16/17 20:52 Urine Microscopic RBC TNTC per hpf (0-3) H 08/16/17 20:52 Urine Microscopic WBC TNTC per hpf (0-3) H 08/16/17 20:52 Ur Squamous Epith Cells Many per lpf (None-Few) H 08/16/17 20:52 Urine Yeast Moderate per hpf (None Seen) H 08/16/17 20:52 Diabetes panel 08/17/17 Range/Units 05:42 Sodium 136 (136-145) mEq/L Potassium 3.4 L (3.5-5.1) mEq/L Chloride 105 (98-107) mEq/L Carbon Dioxide 27 (23-29) mEq/L BUN 14 (8-23) mg/dL Creatinine 0.62 (0.60-1.20) mg/dL Glucose 117 H (70-105) mg/dL Calcium 7.9 L (8.6-10.3) mg/dL AST 100 H (13-39) Units/L ALT 80 H (7-52) Units/L Alkaline Phosphatase 104 (34-104) Units/L Albumin 3.0 L (3.5-5.7) g/dL Calcium panel 08/17/17 Range/Units 05:42 Calcium 7.9 L (8.6-10.3) mg/dL Albumin 3.0 L (3.5-5.7) g/dL Pituitary panel 08/17/17 Range/Units 05:42 Sodium 136 (136-145) mEq/L Potassium 3.4 L (3.5-5.1) mEq/L Chloride 105 (98-107) mEq/L Carbon Dioxide 27 (23-29) mEq/L BUN 14 (8-23) mg/dL Creatinine 0.62 (0.60-1.20) mg/dL Glucose 117 H (70-105) mg/dL Calcium 7.9 L (8.6-10.3) mg/dL Adrenal panel 08/17/17 Range/Units 05:42 Sodium 136 (136-145) mEq/L Potassium 3.4 L (3.5-5.1) mEq/L Chloride 105 (98-107) mEq/L Carbon Dioxide 27 (23-29) mEq/L BUN 14 (8-23) mg/dL Creatinine 0.62 (0.60-1.20) mg/dL Glucose 117 H (70-105) mg/dL Calcium 7.9 L (8.6-10.3) mg/dL Total Bilirubin 1.0 (0.3-1.0) mg/dL AST 100 H (13-39) Units/L ALT 80 H (7-52) Units/L Alkaline Phosphatase 104 (34-104) Units/L Albumin 3.0 L (3.5-5.7) g/dL All other labs normal. - Imaging CT scan - abdomen: image reviewed CT scan - pelvis: image reviewed Consult Discharge Plan - Plan Referrals: Linda Reyes CNP [Primary Care Provider] -
--- NOTE | 2017-08-17 13:03 | Internal Med Progress Note ---
Date of Encounter: 08/17/17 Time of Encounter: 13:00 - Assessment and plan (1) Sepsis Current Visit: Yes Status: Acute Assessment and plan: Patient is septic, possibly due to emphysematous pyelonephritis, patient also has recent instrumentation Tmax is 102, she has tachycardia and an abnormal UA Urine and blood cultures are pending We will escalate antibiotics to Zosyn for pseudomonas coverage due to recent procedure Check lactate Follow urine and blood cultures Qualifiers: Sepsis type: sepsis due to unspecified organism Qualified Code(s): A41.9 - Sepsis, unspecified organism (2) Pyelonephritis Current Visit: Yes Status: Acute Assessment and plan: as above (3) Hydronephrosis Current Visit: Yes Status: Acute Assessment and plan: stable per urology Qualifiers: Hydronephrosis type: other Qualified Code(s): N13.39 - Other hydronephrosis (4) Cholelithiasis Current Visit: Yes Status: Chronic Assessment and plan: Transaminitis noted. RUQ USS shows gall stones with no cholecystitis Continue to monitor Qualifiers: Cholelithiasis location: other site Biliary obstruction: without biliary obstruction Qualified Code(s): K80.80 - Other cholelithiasis without obstruction (5) Diastolic CHF Current Visit: Yes Status: Chronic Assessment and plan: chronic, monitor resp status closely, due to IVF hydration Qualifiers: Congestive heart failure chronicity: acute on chronic Qualified Code(s): I50.33 - Acute on chronic diastolic (congestive) heart failure (6) GERD (gastroesophageal reflux disease) Current Visit: Yes Status: Chronic Assessment and plan: continue home meds Qualifiers: Esophagitis presence: without esophagitis Qualified Code(s): K21.9 - Gastro -esophageal reflux disease without esophagitis (7) Hypertension Current Visit: Yes Status: Chronic Assessment and plan: continue home meds Qualifiers: Hypertension type: essential hypertension Qualified Code(s): I10 - Essential (primary) hypertension - Constitutional Vitals: Temp Pulse Resp BP Pulse Ox 99.5 F 91 18 154/78 94 08/17/17 10:36 08/17/17 10:36 08/17/17 10:36 08/17/17 10:36 08/17/17 10:36 General appearance: Present: A&O X 3, pleasant, obese, answers questions appropriately - Head Head exam: Present: atraumatic, normocephalic - Eye Eye exam: Present: PERRL, conjuntiva pink, sclera anicteric Pupils: Present: PERRL - Neck Neck exam general surgery: Present: supple, trachea midline. Absent: lymphadenopathy - Respiratory Respiratory exam: Present: CTAB. Absent: accessory muscle use, rales, rhonchi, wheezes - Cardiovascular Cardiovascular exam: Present: RRR, +S1, +S2. Absent: diastolic murmur, gallop, rubs, systolic murmur - GI/Abdominal GI/Abdominal exam: Present: normal bowel sounds, soft, no peritoneal signs. Absent: distended, tenderness - Extremities Exam Extremities exam: Present: warm, radial pulses palpable and symmetrical. Absent : calf tenderness, cyanotic, pedal edema - Back Exam Back exam: Present: CVA tenderness (R) - Neurological Exam Neurological exam: Present: CN II-XII intact, oriented X3, no focal deficits. Absent: pronater drift, facial droop, speech deficit - Skin Skin exam: Present: dry, intact Internal Medicine: Result - Labs CBC & Chem 7: 08/17/17 05:42 08/17/17 05:42 Labs: Short CBC 08/17/17 Range/Units 05:42 WBC 7.2 (4.3-11.1) K/mcL Hgb 9.3 L (11.5-15.4) g/dL Hct 29.0 L (35.3-44.9) % Plt Count 162 (140-400) K/mcL Neutrophils # 6.1 (1.6-8.9) K/mcL BMP 08/17/17 05:42 Sodium 136 Potassium 3.4 L Chloride 105 Carbon Dioxide 27 BUN 14 Creatinine 0.62 Glucose 117 H Calcium 7.9 L Liver Function 08/17/17 Range/Units 05:42 Total Bilirubin 1.0 (0.3-1.0) mg/dL AST 100 H (13-39) Units/L ALT 80 H (7-52) Units/L Alkaline Phosphatase 104 (34-104) Units/L Albumin 3.0 L (3.5-5.7) g/dL - Impressions Impressions Abdomen Ultrasound 08/17/17 08:00 IMPRESSION: 1. Gallstones and biliary sludge without evidence of acute cholecystitis. 2. Benign cyst noted in the left lobe of the liver measuring 2.0 x 1.5 x 1.4 cm. 3. There is an echogenic area noted in the right kidney, likely related to the double J right ureteral stent versus air noted in the renal collecting system, better seen on the previous CT from 08/16/2017. D/ / 08/17/2017 08:48:39 Ashish Morrissey MD / osman Interpreting Provider: Ashish Morrissey MD Consult Discharge Plan - Plan Referrals: Linda Reyes [employer] [Primary Care Provider] -
[2017-08-18 05:42] LABS: Hematocrit 31.1 % (35.3-44.9); Hemoglobin 9.5 g/dL (11.5-15.4); Immature Granulocytes % 1.3 % (0-4); Lymphocytes % 18.3 %; Mean Corpuscular HGB Conc 30.5 g/dL (31.6-35.5); Mean Corpuscular Hemoglobin 27.7 pg (28.0-33.3); Mean Corpuscular Volume 90.7 fL (83.0-100.0); Mean Platelet Volume 10.9 fL (9.4-12.4); Platelet Count 122 K/mcL (140-400); Red Blood Count 3.43 M/mcL (3.82-4.97); Red Cell Distribution Width 15.1 % (11.5-14.5); Segmented Neutrophils % 72.3 %
[2017-08-18 05:43] LABS: Basophils % 0.5 %; Eosinophils % 0.6 %; Lymphocytes # 1.2 K/mcL (0.6-4.6); Monocytes # 0.4 K/mcL (0.0-1.3); Neutrophils # 4.6 K/mcL (1.6-8.9); Nucleated Red Blood Cells 0.6 /100 WBC (0)
[2017-08-18 05:46] LABS: Alanine Aminotransferase 90 Units/L (7-52); Albumin 2.9 g/dL (3.5-5.7); Albumin/Globulin Ratio 0.9 (1.1-2.2); Alkaline Phosphatase 144 Units/L (34-104); Aspartate Amino Transferase 102 Units/L (13-39); BUN/Creatinine Ratio 18 (6-26); Bilirubin,Total 1.2 mg/dL (0.3-1.0); Blood Urea Nitrogen 11 mg/dL (8-23); Calcium 8.3 mg/dL (8.6-10.3); Carbon Dioxide 25 mEq/L (23-29); Chloride 106 mEq/L (98-107); Globulin 3.1 g/dL (2.4-3.5); Glucose 92 mg/dL (70-105); Osmolality,Calculated 287 (280-300); Potassium 3.6 mEq/L (3.5-5.1); Sodium 139 mEq/L (136-145); eGFR For Non-African Americans > 60 (> 60)
[2017-08-18 06:27] LABS: Platelet Estimate Slight Decrease (Normal); Reactive Lymphocytes Present (Not Present)
--- NOTE | 2017-08-18 07:21 | Urology Progress Note ---
Date of Encounter: 08/18/17 Time of Encounter: 07:20 - Assessment and Plan (1) Hydronephrosis Current Visit: Yes Status: Acute Assessment and plan: Patient's stent was removed slightly early but no immediate plan to have stent replaced. We will continue to follow along. Qualifiers: Hydronephrosis type: other Qualified Code(s): N13.39 - Other hydronephrosis (2) UTI (urinary tract infection) Current Visit: No Status: Acute Assessment and plan: Awaiting cultures at this time. Agree with broad-spectrum antibiotics at this time. Qualifiers: Urinary tract infection type: site unspecified Hematuria presence: with hematuria Qualified Code(s): N39.0 - Urinary tract infection, site not specified; R31.9 - Hematuria, unspecified Progress Note Narrative: Patient seen this a.m. Patient feeling better today. Still with some low- grade fevers last night. Patient with some rising AST and ALT as well as alkaline phosphatase. Cultures still pending. Patients stent accidentally was removed yesterday. Objective Initial Vital Signs Temp Pulse Resp BP Pulse Ox 99.9 F H 97 18 171/82 92 08/16/17 19:32 08/16/17 19:32 08/16/17 19:32 08/16/17 19:32 08/16/17 19:32 - General physical appearance Present: well developed - Abdomen Present: soft. Absent: distended - Labs 08/18/17 04:50 08/18/17 04:50 Diabetes panel 08/18/17 Range/Units 04:50 Sodium 139 (136-145) mEq/L Potassium 3.6 (3.5-5.1) mEq/L Chloride 106 (98-107) mEq/L Carbon Dioxide 25 (23-29) mEq/L BUN 11 (8-23) mg/dL Creatinine 0.60 (0.60-1.20) mg/dL Glucose 92 (70-105) mg/dL Calcium 8.3 L (8.6-10.3) mg/dL AST 102 H (13-39) Units/L ALT 90 H (7-52) Units/L Alkaline Phosphatase 144 H (34-104) Units/L Albumin 2.9 L (3.5-5.7) g/dL Calcium panel 08/18/17 Range/Units 04:50 Calcium 8.3 L (8.6-10.3) mg/dL Albumin 2.9 L (3.5-5.7) g/dL Pituitary panel 08/18/17 Range/Units 04:50 Sodium 139 (136-145) mEq/L Potassium 3.6 (3.5-5.1) mEq/L Chloride 106 (98-107) mEq/L Carbon Dioxide 25 (23-29) mEq/L BUN 11 (8-23) mg/dL Creatinine 0.60 (0.60-1.20) mg/dL Glucose 92 (70-105) mg/dL Calcium 8.3 L (8.6-10.3) mg/dL Adrenal panel 08/18/17 Range/Units 04:50 Sodium 139 (136-145) mEq/L Potassium 3.6 (3.5-5.1) mEq/L Chloride 106 (98-107) mEq/L Carbon Dioxide 25 (23-29) mEq/L BUN 11 (8-23) mg/dL Creatinine 0.60 (0.60-1.20) mg/dL Glucose 92 (70-105) mg/dL Calcium 8.3 L (8.6-10.3) mg/dL Total Bilirubin 1.2 H (0.3-1.0) mg/dL AST 102 H (13-39) Units/L ALT 90 H (7-52) Units/L Alkaline Phosphatase 144 H (34-104) Units/L Albumin 2.9 L (3.5-5.7) g/dL Consult Discharge Plan - Plan Referrals: Linda Reyes CNP [Primary Care Provider] -
[2017-08-18] MEDS: 0.9 % Sodium Chloride 1,000 ML IVC SCH (07:45)
[2017-08-18] MEDS: Cholecalciferol (D-3) 1,000 UNIT TABLET PO SCH (08:39)
[2017-08-18] MEDS: Fluconazole 100 MG TABLET PO SCH (08:39)
[2017-08-18] MEDS: Lisinopril 20 MG TABLET PO SCH (08:40)
[2017-08-18] MEDS: Famotidine 20 MG TABLET PO SCH (08:40)
--- NOTE | 2017-08-18 10:44 | Internal Med Progress Note ---
<Theo Ring - Last Filed: 08/18/17 15:33> Date of Encounter: 08/18/17 Time of Encounter: 10:45 - Assessment and plan (1) Sepsis Current Visit: Yes Status: Acute Assessment and plan: At admission, Tmax is 102, tachycardia and an abnormal UA. Temperature and heart rate currently normal and stable. Sepsis possibly due to emphysematous pyelonephritis, patient also has recent instrumentation. UA + yeast, leukocyte esterase, blood. preliminary urine culture demonstrates gram-positive cocci, pending blood culture. CT implies right hydronephrosis, possible gas-forming infection. Lactic acid normal. Continue Diflucan for yeast infection, Zosyn for pseudomonas coverage due to recent procedure. Continue IV fluids. Follow urine and blood cultures with sensitivities. Qualifiers: Sepsis type: sepsis due to unspecified organism Qualified Code(s): A41.9 - Sepsis, unspecified organism (2) Pyelonephritis Current Visit: Yes Status: Acute Assessment and plan: as above (3) Hydronephrosis Current Visit: Yes Status: Acute Assessment and plan: stable per urology. no immediate plan to have stent replaced. Qualifiers: Hydronephrosis type: other Qualified Code(s): N13.39 - Other hydronephrosis (4) Transaminitis Current Visit: Yes Status: Acute Assessment and plan: RUQ USS shows gall stones with no cholecystitis Continue to monitor liver function. Continue IV fluids. (5) Hypertension Current Visit: Yes Status: Chronic Assessment and plan: continue home meds. Patient had elevated blood pressure today 164/89. Hydralazine 10 mg as needed for systolic blood pressure greater than 160 Qualifiers: Hypertension type: essential hypertension Qualified Code(s): I10 - Essential (primary) hypertension (6) UTI (urinary tract infection) Current Visit: No Status: Acute Assessment and plan: UA demonstrated positive yeast, pending urine culture, blood culture. Continue with Diflucan and Zosyn day#2 Qualifiers: Urinary tract infection type: site unspecified Hematuria presence: with hematuria Qualified Code(s): N39.0 - Urinary tract infection, site not specified; R31.9 - Hematuria, unspecified (7) Cholelithiasis Current Visit: Yes Status: Chronic Assessment and plan: Transaminitis noted. RUQ USS shows gall stones with no cholecystitis Continue to monitor Qualifiers: Cholelithiasis location: other site Biliary obstruction: without biliary obstruction Qualified Code(s): K80.80 - Other cholelithiasis without obstruction (8) Diastolic CHF Current Visit: Yes Status: Chronic Qualifiers: Congestive heart failure chronicity: acute on chronic Qualified Code(s): I50.33 - Acute on chronic diastolic (congestive) heart failure (9) Nausea and vomiting Current Visit: Yes Status: Acute Qualifiers: Vomiting Intractability: intractable Qualified Code(s): R11.2 - Nausea with vomiting, unspecified (10) Hypocalcemia Current Visit: Yes Status: Acute Assessment and plan: Vitamin D supplementation by mouth daily - Time Spent With Patient Greater than 35 minutes - Subjective Interval history: 67-year-old female past medical history of hypertension, hyperlipidemia, nephrolithiasis, right ureteral stent removal on 08/15/17, presents to ED with intractable nausea and vomiting for 2 days and anorexia. Today, the patient reports improvement of nausea. She denies any chest pain, diaphoresis, abdominal pain. Denies any fever, chills, vomiting, abdominal pain, dysuria, hematuria. Per nurse, ureter stent came out when straight catch attempted, currently using diapers. She is tolerating full liquid diet. No further acute complaints at this time - Constitutional Vitals: Temp Pulse Resp BP Pulse Ox 99.0 F 77 14 164/89 95 08/18/17 06:39 08/18/17 06:39 08/18/17 06:39 08/18/17 06:39 08/18/17 06:39 General appearance: Present: A&O X 3, pleasant, obese, answers questions appropriately - Head Head exam: Present: atraumatic, normocephalic - Eye Eye exam: Present: PERRL, conjuntiva pink, sclera anicteric Pupils: Present: PERRL - Neck Neck exam general surgery: Present: supple, trachea midline. Absent: lymphadenopathy - Respiratory Respiratory exam: Present: CTAB. Absent: accessory muscle use, rales, rhonchi, wheezes - Cardiovascular Cardiovascular exam: Present: RRR, +S1, +S2. Absent: diastolic murmur, gallop, rubs, systolic murmur - GI/Abdominal GI/Abdominal exam: Present: normal bowel sounds, soft, no peritoneal signs. Absent: distended, tenderness - Extremities Exam Extremities exam: Present: warm, radial pulses palpable and symmetrical. Absent : calf tenderness, cyanotic, pedal edema - Neurological Exam Neurological exam: Present: CN II-XII intact, oriented X3, no focal deficits. Absent: pronater drift, facial droop, speech deficit - Skin Skin exam: Present: dry, intact Internal Medicine: Result - Labs CBC & Chem 7: 08/18/17 04:50 08/18/17 04:50 Labs: Short CBC 08/18/17 Range/Units 04:50 WBC 6.3 (4.3-11.1) K/mcL Hgb 9.5 L (11.5-15.4) g/dL Hct 31.1 L (35.3-44.9) % Plt Count 122 L (140-400) K/mcL Neutrophils # 4.6 (1.6-8.9) K/mcL BMP 08/18/17 04:50 Sodium 139 Potassium 3.6 Chloride 106 Carbon Dioxide 25 BUN 11 Creatinine 0.60 Glucose 92 Calcium 8.3 L Liver Function 08/18/17 Range/Units 04:50 Total Bilirubin 1.2 H (0.3-1.0) mg/dL AST 102 H (13-39) Units/L ALT 90 H (7-52) Units/L Alkaline Phosphatase 144 H (34-104) Units/L Albumin 2.9 L (3.5-5.7) g/dL Consult Discharge Plan - Plan Referrals: Linda Reyes CNP [Primary Care Provider] - 08/29/17 9:00 am <Carroll Marshlal - Last Filed: 08/18/17 16:32> Date of Encounter: 08/18/17 - Assessment and plan (1) Sepsis Current Visit: Yes Status: Acute Qualifiers: Sepsis type: sepsis due to unspecified organism Qualified Code(s): A41.9 - Sepsis, unspecified organism (2) Pyelonephritis Current Visit: Yes Status: Acute (3) Hydronephrosis Current Visit: Yes Status: Acute Qualifiers: Hydronephrosis type: other Qualified Code(s): N13.39 - Other hydronephrosis (4) Cholelithiasis Current Visit: Yes Status: Chronic Qualifiers: Cholelithiasis location: other site Biliary obstruction: without biliary obstruction Qualified Code(s): K80.80 - Other cholelithiasis without obstruction (5) Diastolic CHF Current Visit: Yes Status: Chronic Qualifiers: Congestive heart failure chronicity: acute on chronic Qualified Code(s): I50.33 - Acute on chronic diastolic (congestive) heart failure (6) GERD (gastroesophageal reflux disease) Current Visit: Yes Status: Chronic Qualifiers: Esophagitis presence: without esophagitis Qualified Code(s): K21.9 - Gastro -esophageal reflux disease without esophagitis (7) Hypertension Current Visit: Yes Status: Chronic Qualifiers: Hypertension type: essential hypertension Qualified Code(s): I10 - Essential (primary) hypertension - Constitutional Vitals: Temp Pulse Resp BP Pulse Ox 97.7 F 85 17 163/84 95 08/18/17 13:47 08/18/17 13:47 08/18/17 13:47 08/18/17 13:47 08/18/17 13:47 Internal Medicine: Result - Labs CBC & Chem 7: 08/18/17 04:50 08/18/17 04:50 - Attending Attestation I examined this patient and my medical decision-making was reviewed with the Resident Physician. I agree with the documented findings, disposition and treatment plan as described except to the extent set forth below. Seen and examined at bedside Looks much more improved Continue current care Await final cultures Follow LFTs-consider MRCP if LFTs continue to uptrend Rest as in resident physician's documentation
[2017-08-18] MEDS: hydrALAZINE 10 MG TABLET PO PRN (21:26)
[2017-08-19 05:17] LABS: Basophils % 0.4 %; Eosinophils # 0.1 K/mcL (0.0-0.6); Eosinophils % 1.3 %; Hematocrit 29.6 % (35.3-44.9); Hemoglobin 9.6 g/dL (11.5-15.4); Immature Granulocytes % 0.7 % (0-4); Lymphocytes # 1.4 K/mcL (0.6-4.6); Lymphocytes % 25.6 %; Mean Corpuscular HGB Conc 32.4 g/dL (31.6-35.5); Mean Corpuscular Hemoglobin 28.1 pg (28.0-33.3); Mean Corpuscular Volume 86.5 fL (83.0-100.0); Mean Platelet Volume 10.7 fL (9.4-12.4); Monocytes # 0.5 K/mcL (0.0-1.3); Monocytes % 9.3 %; Neutrophils # 3.5 K/mcL (1.6-8.9); Platelet Count 156 K/mcL (140-400); Red Blood Count 3.42 M/mcL (3.82-4.97); Red Cell Distribution Width 14.6 % (11.5-14.5); Segmented Neutrophils % 62.7 %
[2017-08-19 06:00] LABS: Alanine Aminotransferase 76 Units/L (7-52); Albumin 2.8 g/dL (3.5-5.7); Albumin/Globulin Ratio 0.9 (1.1-2.2); Alkaline Phosphatase 168 Units/L (34-104); Aspartate Amino Transferase 72 Units/L (13-39); BUN/Creatinine Ratio 15 (6-26); Bilirubin,Direct 0.2 mg/dL (0.0-0.2); Bilirubin,Indirect 0.7 mg/dL (0.0-1.2); Bilirubin,Total 0.9 mg/dL (0.3-1.0); Blood Urea Nitrogen 8 mg/dL (8-23); Calcium 8.3 mg/dL (8.6-10.3); Carbon Dioxide 27 mEq/L (23-29); Chloride 105 mEq/L (98-107); Globulin 3.2 g/dL (2.4-3.5); Glucose 110 mg/dL (70-105); Osmolality,Calculated 289 (280-300); Potassium 3.1 mEq/L (3.5-5.1); Sodium 140 mEq/L (136-145); eGFR For Non-African Americans > 60 (> 60)
[2017-08-19 06:12] LABS: Platelet Estimate Normal (Normal)
--- NOTE | 2017-08-19 06:52 | Urology Progress Note ---
Date of Encounter: 08/19/17 Time of Encounter: 06:51 - Assessment and Plan (1) Hydronephrosis Current Visit: Yes Status: Acute Assessment and plan: no flank pain at this time and stent has been out for 2 days. Qualifiers: Hydronephrosis type: other Qualified Code(s): N13.39 - Other hydronephrosis (2) UTI (urinary tract infection) Current Visit: No Status: Acute Assessment and plan: patient will need at least 10 days of abx. keep scheduled f/u with Dr. Coleman. call with any questions. Qualifiers: Urinary tract infection type: site unspecified Hematuria presence: with hematuria Qualified Code(s): N39.0 - Urinary tract infection, site not specified; R31.9 - Hematuria, unspecified Progress Note Narrative: patient seen. feeling much better. urine culture growing gram + Objective Initial Vital Signs Temp Pulse Resp BP Pulse Ox 99.9 F H 97 18 171/82 92 08/16/17 19:32 08/16/17 19:32 08/16/17 19:32 08/16/17 19:32 08/16/17 19:32 - General physical appearance Present: well developed - Abdomen Present: soft - Labs 08/19/17 04:42 08/19/17 04:42 Diabetes panel 08/19/17 Range/Units 04:42 Sodium 140 (136-145) mEq/L Potassium 3.1 L (3.5-5.1) mEq/L Chloride 105 (98-107) mEq/L Carbon Dioxide 27 (23-29) mEq/L BUN 8 (8-23) mg/dL Creatinine 0.55 L (0.60-1.20) mg/dL Glucose 110 H (70-105) mg/dL Calcium 8.3 L (8.6-10.3) mg/dL AST 72 H (13-39) Units/L ALT 76 H (7-52) Units/L Alkaline Phosphatase 168 H (34-104) Units/L Albumin 2.8 L (3.5-5.7) g/dL Calcium panel 08/19/17 Range/Units 04:42 Calcium 8.3 L (8.6-10.3) mg/dL Albumin 2.8 L (3.5-5.7) g/dL Pituitary panel 08/19/17 Range/Units 04:42 Sodium 140 (136-145) mEq/L Potassium 3.1 L (3.5-5.1) mEq/L Chloride 105 (98-107) mEq/L Carbon Dioxide 27 (23-29) mEq/L BUN 8 (8-23) mg/dL Creatinine 0.55 L (0.60-1.20) mg/dL Glucose 110 H (70-105) mg/dL Calcium 8.3 L (8.6-10.3) mg/dL Adrenal panel 08/19/17 Range/Units 04:42 Sodium 140 (136-145) mEq/L Potassium 3.1 L (3.5-5.1) mEq/L Chloride 105 (98-107) mEq/L Carbon Dioxide 27 (23-29) mEq/L BUN 8 (8-23) mg/dL Creatinine 0.55 L (0.60-1.20) mg/dL Glucose 110 H (70-105) mg/dL Calcium 8.3 L (8.6-10.3) mg/dL Total Bilirubin 0.9 (0.3-1.0) mg/dL AST 72 H (13-39) Units/L ALT 76 H (7-52) Units/L Alkaline Phosphatase 168 H (34-104) Units/L Albumin 2.8 L (3.5-5.7) g/dL Consult Discharge Plan - Plan Referrals: Linda Reyes CNP [Primary Care Provider] - 08/29/17 9:00 am
[2017-08-19] MEDS: Famotidine 20 MG TABLET PO SCH (09:21)
[2017-08-19] MEDS: Cholecalciferol (D-3) 1,000 UNIT TABLET PO SCH (09:21)
[2017-08-19] MEDS: Lisinopril 20 MG TABLET PO SCH (09:21)
[2017-08-19] MEDS: Fluconazole 100 MG TABLET PO SCH (09:21)
[2017-08-19] MEDS ORDERED: Potassium Chloride Elixir 20 MEQ/15 ML UDC PO ONE (11:51)
[2017-08-19] MEDS: amLODIPine 5 MG TABLET PO SCH (12:16)
--- NOTE | 2017-08-19 14:43 | Internal Med Progress Note ---
<Theo Ring - Last Filed: 08/19/17 14:48> Date of Encounter: 08/19/17 Time of Encounter: 14:00 - Assessment and plan (1) Pyelonephritis Current Visit: Yes Status: Acute Assessment and plan: Temperature and heart rate currently normal and stable. CT demonstrated ight hydronephrosis, possible gas-forming infection. Lactic acid normal. UCx + Enterococcus gallinarum pending sensitivities. discontinue diflucan and continue Zosyn day #3. Advance diet as tolerated. Plan for discharge tomorrow (2) Sepsis Current Visit: Yes Status: Acute Assessment and plan: Resolved. At admission, Tmax is 102, tachycardia and an abnormal UA. Sepsis likely due to emphysematous pyelonephritis, patient also has recent instrumentation. Plan as above. Qualifiers: Sepsis type: sepsis due to unspecified organism Qualified Code(s): A41.9 - Sepsis, unspecified organism (3) Hydronephrosis Current Visit: Yes Status: Acute Assessment and plan: Stable. Urology on board. No acute intervention required at this time. Follow- up with Urology outpatient. Qualifiers: Hydronephrosis type: other Qualified Code(s): N13.39 - Other hydronephrosis (4) Transaminitis Current Visit: Yes Status: Acute Assessment and plan: Improved. RUQ USS shows gall stones with no cholecystitis Liver function improved. Continue to monitor with AM labs. (5) Hypertension Current Visit: Yes Status: Chronic Assessment and plan: continue home meds. Patient had elevated blood pressure today 164/89. Start Norvasc 10 mg by mouth daily. Hydralazine 10 mg as needed for systolic blood pressure greater than 160 Qualifiers: Hypertension type: essential hypertension Qualified Code(s): I10 - Essential (primary) hypertension (6) UTI (urinary tract infection) Current Visit: No Status: Acute Assessment and plan: UCx positive for Enterococcus gallinarum. DC diflucan and continue Zosyn day#3. De-escalate antibiotics as appropriate. Qualifiers: Urinary tract infection type: site unspecified Hematuria presence: with hematuria Qualified Code(s): N39.0 - Urinary tract infection, site not specified; R31.9 - Hematuria, unspecified (7) Cholelithiasis Current Visit: Yes Status: Chronic Assessment and plan: Transaminitis noted. RUQ USS shows gall stones with no cholecystitis Continue to monitor Qualifiers: Cholelithiasis location: other site Biliary obstruction: without biliary obstruction Qualified Code(s): K80.80 - Other cholelithiasis without obstruction (8) Nausea and vomiting Current Visit: Yes Status: Acute Assessment and plan: Improved. Continue GI prophylaxis. Qualifiers: Vomiting Intractability: intractable Qualified Code(s): R11.2 - Nausea with vomiting, unspecified (9) Hypokalemia Current Visit: Yes Status: Acute Assessment and plan: Repleted. Monitor with AM labs. - Time Spent With Patient Greater than 35 minutes - Subjective Interval history: 67-year-old female past medical history of hypertension, hyperlipidemia, nephrolithiasis, right ureteral stent removal on 08/15/17, presents to ED with intractable nausea and vomiting for 2 days and anorexia. Today, the patient reports improvement of nausea. She denies any chest pain, diaphoresis, abdominal pain. Denies any fever, chills, vomiting, abdominal pain, dysuria, hematuria. She is tolerating full liquid diet. No further acute complaints at this time - Constitutional Vitals: Temp Pulse Resp BP Pulse Ox 97.9 F 73 16 152/87 95 08/19/17 11:13 08/19/17 11:13 08/19/17 11:13 08/19/17 11:13 08/19/17 11:13 General appearance: Present: A&O X 3, pleasant, obese, answers questions appropriately - Head Head exam: Present: atraumatic, normocephalic - Eye Eye exam: Present: PERRL, conjuntiva pink, sclera anicteric Pupils: Present: PERRL - Neck Neck exam general surgery: Present: supple, trachea midline. Absent: lymphadenopathy - Respiratory Respiratory exam: Present: CTAB. Absent: accessory muscle use, rales, rhonchi, wheezes - Cardiovascular Cardiovascular exam: Present: RRR, +S1, +S2. Absent: diastolic murmur, gallop, rubs, systolic murmur - GI/Abdominal GI/Abdominal exam: Present: normal bowel sounds, soft, no peritoneal signs. Absent: distended, tenderness - Extremities Exam Extremities exam: Present: warm, radial pulses palpable and symmetrical. Absent : calf tenderness, cyanotic, pedal edema - Neurological Exam Neurological exam: Present: CN II-XII intact, oriented X3, no focal deficits. Absent: pronater drift, facial droop, speech deficit - Skin Skin exam: Present: dry, intact Internal Medicine: Result - Labs CBC & Chem 7: 08/19/17 04:42 08/19/17 04:42 Labs: Short CBC 08/19/17 Range/Units 04:42 WBC 5.5 (4.3-11.1) K/mcL Hgb 9.6 L (11.5-15.4) g/dL Hct 29.6 L (35.3-44.9) % Plt Count 156 (140-400) K/mcL Neutrophils # 3.5 (1.6-8.9) K/mcL BMP 08/19/17 04:42 Sodium 140 Potassium 3.1 L Chloride 105 Carbon Dioxide 27 BUN 8 Creatinine 0.55 L Glucose 110 H Calcium 8.3 L Liver Function 08/19/17 Range/Units 04:42 Total Bilirubin 0.9 (0.3-1.0) mg/dL Direct Bilirubin 0.2 (0.0-0.2) mg/dL AST 72 H (13-39) Units/L ALT 76 H (7-52) Units/L Alkaline Phosphatase 168 H (34-104) Units/L Albumin 2.8 L (3.5-5.7) g/dL Consult Discharge Plan - Plan Referrals: Linda Reyes CNP [Primary Care Provider] - 08/29/17 9:00 am <Carroll Marshall - Last Filed: 08/19/17 15:33> Date of Encounter: 08/19/17 - Assessment and plan (1) Sepsis Current Visit: Yes Status: Acute Qualifiers: Sepsis type: sepsis due to unspecified organism Qualified Code(s): A41.9 - Sepsis, unspecified organism (2) Pyelonephritis Current Visit: Yes Status: Acute (3) Hydronephrosis Current Visit: Yes Status: Acute Qualifiers: Hydronephrosis type: other Qualified Code(s): N13.39 - Other hydronephrosis (4) Cholelithiasis Current Visit: Yes Status: Chronic Qualifiers: Cholelithiasis location: other site Biliary obstruction: without biliary obstruction Qualified Code(s): K80.80 - Other cholelithiasis without obstruction (5) Diastolic CHF Current Visit: No Status: Chronic (6) GERD (gastroesophageal reflux disease) Current Visit: Yes Status: Chronic Qualifiers: Esophagitis presence: without esophagitis Qualified Code(s): K21.9 - Gastro -esophageal reflux disease without esophagitis (7) Hypertension Current Visit: Yes Status: Chronic Qualifiers: Hypertension type: essential hypertension Qualified Code(s): I10 - Essential (primary) hypertension - Constitutional Vitals: Temp Pulse Resp BP Pulse Ox 98.2 F 79 16 144/80 98 08/19/17 14:45 08/19/17 14:45 08/19/17 14:45 08/19/17 14:45 08/19/17 14:45 Internal Medicine: Result - Labs CBC & Chem 7: 08/19/17 04:42 08/19/17 04:42 Labs: Short CBC 08/19/17 Range/Units 04:42 WBC 5.5 (4.3-11.1) K/mcL Hgb 9.6 L (11.5-15.4) g/dL Hct 29.6 L (35.3-44.9) % Plt Count 156 (140-400) K/mcL Neutrophils # 3.5 (1.6-8.9) K/mcL BMP 08/19/17 04:42 Sodium 140 Potassium 3.1 L Chloride 105 Carbon Dioxide 27 BUN 8 Creatinine 0.55 L Glucose 110 H Calcium 8.3 L Liver Function 08/19/17 Range/Units 04:42 Total Bilirubin 0.9 (0.3-1.0) mg/dL Direct Bilirubin 0.2 (0.0-0.2) mg/dL AST 72 H (13-39) Units/L ALT 76 H (7-52) Units/L Alkaline Phosphatase 168 H (34-104) Units/L Albumin 2.8 L (3.5-5.7) g/dL - Attending Attestation I examined this patient and my medical decision-making was reviewed with the Resident Physician. I agree with the documented findings, disposition and treatment plan as described except to the extent set forth below. Seen and examined at bedside with partner Denies new complains Denies RUQ pain, says she has not had abdominal pain since she passed the stone She is making adequate urine Physical exam is unremarkable Labs unremarkable. Urine culture with enteroccoccus gallinarum, pending sensitivities LFT is improving Continue current care Await final culture sensitivities, discontinue Diflucan Rest as in resident physician's documentation
[2017-08-20] MEDS: hydrALAZINE 10 MG TABLET PO PRN (00:04)
[2017-08-20 06:39] VITALS: BP 154/79
[2017-08-20 08:03] LABS: Albumin/Globulin Ratio 0.9 (1.1-2.2); Bilirubin,Direct 0.1 mg/dL (0.0-0.2); Bilirubin,Indirect 0.6 mg/dL (0.0-1.2); Bilirubin,Total 0.7 mg/dL (0.3-1.0); Globulin 3.3 g/dL (2.4-3.5); Total Protein 6.3 g/dL (6.4-8.9)
--- NOTE | 2017-08-20 08:12 | Discharge Summary ---
<Theo Ring - Last Filed: 08/20/17 08:42> Date of Encounter: 08/20/17 Time of Encounter: 08:15 - Discharge Diagnosis (1) Sepsis Priority: Primary Status: Acute Qualifiers: Sepsis type: sepsis due to unspecified organism Qualified Code(s): A41.9 - Sepsis, unspecified organism (2) Pyelonephritis Priority: Primary Status: Acute (3) Hydronephrosis Priority: Primary Status: Acute Qualifiers: Hydronephrosis type: other Qualified Code(s): N13.39 - Other hydronephrosis (4) UTI (urinary tract infection) Priority: Primary Status: Acute Qualifiers: Urinary tract infection type: site unspecified Hematuria presence: with hematuria Qualified Code(s): N39.0 - Urinary tract infection, site not specified; R31.9 - Hematuria, unspecified (5) Hypertension Priority: Secondary Status: Chronic Qualifiers: Hypertension type: essential hypertension Qualified Code(s): I10 - Essential (primary) hypertension (6) Transaminitis Priority: Secondary Status: Acute (7) Cholelithiasis Priority: Secondary Status: Chronic Qualifiers: Cholelithiasis location: other site Biliary obstruction: without biliary obstruction Qualified Code(s): K80.80 - Other cholelithiasis without obstruction (8) Nausea and vomiting Priority: Secondary Status: Acute Qualifiers: Vomiting Intractability: intractable Qualified Code(s): R11.2 - Nausea with vomiting, unspecified (9) Hypokalemia Priority: Secondary Status: Acute - Discharge Medications Prescriptions: amLODIPine [Norvasc] 10 mg PO DAILY 30 Days #30 tablet Linezolid [Zyvox] 600 mg PO BID 10 Days #20 tablet Home Medications: Atorvastatin Calcium [Lipitor] 20 mg PO DAILY 08/15/17 [History] Cholecalciferol (D-3) [Vitamin D] 2,000 unit PO DAILY 08/15/17 [History] Docusate [Colace] 100 mg PO BID #60 capsule 08/15/17 [Rx] HYDROcodone/Acet 5/325 mg [[place] 5-325 mg] 1 tab PO Q4H PRN 4 Days #15 tab 08/15 [Rx] Lisinopril [Zestril] 20 mg PO DAILY 08/15/17 [History] Phenazopyridine HCl [Pyridium] 200 mg PO TIDAC #12 tab 08/15/17 [Rx] Ranitidine HCl [Zantac] 150 mg PO DAILY 08/15/17 [History] Pantoprazole Sodium [Protonix] 20 mg PO DAILY 08/16/17 [History] Linezolid [Zyvox] 600 mg PO BID 10 Days #20 tablet 08/20/17 [Rx] amLODIPine [Norvasc] 10 mg PO DAILY 30 Days #30 tablet 08/20/17 [Rx] Allergies/Adverse Reactions: 3 Allergy/AdvReac Type Severity Reaction Status Date / Time No Known Allergies Allergy Verified 08/15/17 10:50 Date of admission: 08/18/17 08:42 Primary care physician: Linda Reyes CNP Discharging clinician: Theo Ring Anticipated date of discharge: 08/20/17 - Patient Status Disposition: Home, Self-Care Condition: Good Functional capacity at discharge: independent ambulation Overall status at discharge: patient is back to baseline - Discharge Instructions Follow Up With: Linda Reyes CNP [Primary Care Provider] - 08/29/17 9:00 am - Diet and Activity Diet: regular diet Hospital course: Ms. Zamorano is a 67 year old female with past medical history of hypertension, hyperlipidemia, nephrolithiasis, recent stent removal on 08/15/17, diagnostic cystoscopy exchanged by Dr. Coleman presented to ED with complaints of intractable nausea and vomiting for 2 days accompanied by anorexia. CT of abdomen and pelvis demonstrated moderate right hydronephrosis and possible stent malfunction, gallstones noted, known lobulated lesion within the left breast. Abdominal ultrasound demonstrated benign cysts in the left lobe of the liver and echogenic area noted in the right kidney likely related to the double- J right ureteral stent. UA was positive for yeast and esterase positive and the patient was started on Rocephin and Diflucan on 08/17/17. Rocephin was escalated to Zosyn on same day for pseudomona coverage due to patient's history of recent procedure. Patient's stent came out on 08/17/17 while placing a straight catheter, and per urology, no immediate plan was needed to have stent replaced. Urine culture demonstrated VRE on 08/20/17, Zosyn was discontinued and patient was started on Zyvox currently day #1. Patient's hypertension has also been unstable and uncontrolled with home medications lisinopril 20 mg by mouth daily. Norvasc 10 mg by mouth daily added to her hypertension treatment, and her blood pressure has been controlled with goal of <150/90. Today, patient denies fevers/chills/nausea/vomiting, chest pain, shortness of breath, cough, hematuria, dysuria, abdominal pain, flank pain. She has no acute complaints and is comfortable being discharged home. Plan to discharge patient with Zyvox 600 mg PO BID x10 days, Norvasc 10mg PO daily. Patient is to follow up with PCP in regards to HTN and with urology for stent replacement. - Time Spent with Patient Total time spent providing and/or coordinating discharge services: Greater than 30 minutes - Constitutional Vitals: Temp Pulse Resp BP Pulse Ox 98.0 F 69 14 154/79 97 08/20/17 06:39 08/20/17 06:39 08/20/17 06:39 08/20/17 06:39 08/20/17 06:39 General appearance: Present: A&O X 3, pleasant, obese, answers questions appropriately - Head Head exam: Present: atraumatic, normocephalic - Eye Eye exam: Present: PERRL, conjuntiva pink, sclera anicteric Pupils: Present: PERRL - Neck Neck exam general surgery: Present: supple, trachea midline. Absent: lymphadenopathy - Respiratory Respiratory exam: Present: CTAB. Absent: accessory muscle use, rales, rhonchi, wheezes - Cardiovascular Cardiovascular exam: Present: RRR, +S1, +S2. Absent: diastolic murmur, gallop, rubs, systolic murmur - GI/Abdominal GI/Abdominal exam: Present: normal bowel sounds, soft, no peritoneal signs. Absent: distended, tenderness - Extremities Exam Extremities exam: Present: warm, radial pulses palpable and symmetrical. Absent : calf tenderness, cyanotic, pedal edema - Neurological Exam Neurological exam: Present: CN II-XII intact, oriented X3, no focal deficits. Absent: pronater drift, facial droop, speech deficit - Skin Skin exam: Present: dry, intact <Carroll Marshall T - Last Filed: 08/20/17 13:42> Date of Encounter: 08/20/17 - Discharge Diagnosis (1) Sepsis Status: Acute Qualifiers: Sepsis type: sepsis due to unspecified organism Qualified Code(s): A41.9 - Sepsis, unspecified organism (2) Pyelonephritis Status: Acute (3) Hydronephrosis Status: Acute Qualifiers: Hydronephrosis type: other Qualified Code(s): N13.39 - Other hydronephrosis (4) Cholelithiasis Status: Chronic Qualifiers: Cholelithiasis location: other site Biliary obstruction: without biliary obstruction Qualified Code(s): K80.80 - Other cholelithiasis without obstruction (5) Diastolic CHF Status: Chronic (6) GERD (gastroesophageal reflux disease) Status: Chronic Qualifiers: Esophagitis presence: without esophagitis Qualified Code(s): K21.9 - Gastro -esophageal reflux disease without esophagitis (7) Hypertension Status: Chronic Qualifiers: Hypertension type: essential hypertension Qualified Code(s): I10 - Essential (primary) hypertension Date of admission: 08/18/17 08:42 Primary care physician: Linda Reyes PLASTICS NURSE Hospital course: Ms. Zamorano is a 67 year old female - Time Spent with Patient Total time spent providing and/or coordinating discharge services: - Constitutional Vitals: Temp Pulse Resp BP Pulse Ox 98.0 F 69 14 154/79 97 08/20/17 06:39 08/20/17 06:39 08/20/17 06:39 08/20/17 06:39 08/20/17 06:39 - Attending Attestation I examined this patient and my medical decision-making was reviewed with the Resident Physician. I agree with the documented findings, disposition and treatment plan as described except to the extent set forth below. Seen and examined at bedside with partner Denies new complains Denies RUQ pain, says she has not had abdominal pain since she passed the stone She is making adequate urine Physical exam is unremarkable Labs unremarkable. Transaminitis has improved remarkably Urine culture with Vancomycin resistant enteroccoccus gallinarum, sensitive to Zyvox I have spoken with patient's insurance and her copay is ~225 USD< patient states she can afford that Discharged home on 10 days of po Zyvox, follow up with PCP
[2017-08-20 08:16] LABS: BUN/Creatinine Ratio 11 (6-26); Blood Urea Nitrogen 7 mg/dL (8-23); Calcium 8.5 mg/dL (8.6-10.3); Carbon Dioxide 29 mEq/L (23-29); Chloride 104 mEq/L (98-107); Glucose 112 mg/dL (70-105); Osmolality,Calculated 293 (280-300); Potassium 3.1 mEq/L (3.5-5.1); Sodium 142 mEq/L (136-145); eGFR For Non-African Americans > 60 (> 60)
[2017-08-20] MEDS ORDERED: Linezolid 600 MG TABLET PO SCH (09:00)
[2017-08-20] MEDS: Cholecalciferol (D-3) 1,000 UNIT TABLET PO SCH (09:44)
[2017-08-20] MEDS: Famotidine 20 MG TABLET PO SCH (09:44)
[2017-08-20] MEDS: amLODIPine 5 MG TABLET PO SCH (09:45)
[2017-08-20] MEDS: Lisinopril 20 MG TABLET PO SCH (09:45)
== END 2017-08-20 10:50 | disposition home or self-care (01) | DRG 872 ==
LOC: EMEROO 19:31 → 3ANU 19:31
PROVIDERS: ADMIT Internal Medicine; ATTEND Internal Medicine